=== PATIENT | male | born 1970 | race Caucasian/White ===

== ENCOUNTER 2023-03-15 22:46 | Emergency (ER) | payer SELFPAY ==
[2023-03-15 23:01] VITALS: BP 182/95; PULSE 82; RESP 20; TEMP 36.6; O2SAT 98; BMI 53.0
[2023-03-15 23:47] LABS: MANUAL DIFF FLAG NO
[2023-03-15 23:49] LABS: Basophils Percent Auto 0.5 % (0-2); Eosinophils Absolute Auto 0.3 X10*3/uL (0.0-0.4); Hematocrit 40.3 % (42.0-52.0); Imm Gran Abs Auto 0.02 X10*3/uL (0.00-0.03); Imm Gran Pct Auto 0.2 % (0.0-0.4); Lymphocytes Absolute Auto 2.4 X10*3/uL (1.2-4.9); Lymphocytes Percent Auto 27.2 % (20-40); Mean Corpuscular HGB Conc 32.3 g/dl (31.0-36.0); Mean Corpuscular Hemoglobin 27.5 pg (27.0-33.0); Mean Corpuscular Volume 85.2 fL (80.0-98.0); Mean Platelet Volume 9.9 fL (9.4-12.4); Monocytes Absolute Auto 0.5 X10*3/uL (0.1-1.2); Monocytes Percent Auto 5.8 % (2-11); Neutrophils Absolute Auto 5.6 x10*3/uL (2.0-8.3); Neutrophils Percent Auto 63.3 % (45-73); Platelet Count 260 X10*3/uL (160-400); Red Blood Count 4.73 X10*6/uL (4.60-5.80); Red Cell Distribution Width 14.3 % (11.0-16.0); White Blood Count 8.8 X10*3/uL (4.8-10.8)
--- NOTE | 2023-03-15 23:55 | MHC.EDTECH ---
Patient blood drawn including both sets of blood culture and lactic acid all sent to lab .
[2023-03-15 23:58] LABS: Lactic Acid 1.6 mmol/L (0.5-2.0)
[2023-03-16 00:02] LABS: Alanine Aminotransferase 17 U/L (0-40); Albumin Level 3.8 g/dL (3.5-5.0); Alkaline Phosphatase 64 U/L (39-117); Anion Gap 13 (12-20); Aspartate Amino Transferase 17 U/L (5-37); Bilirubin Total 0.6 mg/dL (0.0-1.0); Blood Urea Nitrogen 13 mg/dL (9-16); Calcium 9.2 mg/dL (8.4-10.2); Carbon Dioxide 27 mmol/L (22-29); Chloride 104 mmol/L (96-108); Creatinine Clr Calc Pharmacy 162.1; Estimated Glomerular Filt Rate > 60; Glucose Random 149 mg/dL (60-115); Potassium 3.9 mmol/L (3.3-5.1); Sodium 140 mmol/L (135-145); Total Protein 8.3 g/dL (6.5-8.0)
[2023-03-16 01:49] VITALS: BP 176/89; PULSE 111; RESP 20; TEMP 36.4
--- NOTE | 2023-03-16 02:07 | PC.NURSE ---
his rn assumed care of pt. pt reporting one year of cellulites to the right calf, pt reports he does not have PCP so he dresses ot himself. pt reports outbreak of psoriasis. pt right calf noted to be red, and warm to touch. pt had dressing, which this rn removed, yellow drainage noted to site. pt noted to have patchy rash to the right elbow, forearm and hand, left forearm, elbow and hand, lower back and abdomen. pt reports pain to the right calf which increases with ambulation.
--- NOTE | 2023-03-16 02:17 | ED.SKABFB ---
HPI - Skin/Abscess/Foreign Bdy General Chief complaint: Extremity Injury, Lower Stated complaint: Bilat hand celulitis Time Seen by Provider: 03/16/23 02:03 Source: patient Mode of arrival: ambulatory Limitations: no limitations History of Present Illness HPI narrative: 53yo male who just moved here has no PCP, no meds and on and off goes on cephalexin for reported recurrent RLE cellulitis and untreated psoriasis. He notes it is not painful but he has a chronic RLE rash that never heals. He states his psoriasis seems the worse it has ever been. MD complaint: rash Onset (ago): year(s) Location: generalized Severity: moderate Quality: pruritic Relieving factors: none Exacerbating factors: none Context: other (chronic) Associated symptoms: denies other symptoms Treatments prior to arrival: bandages Related Data Previous Rx's Medication Instructions Recorded silver sulfadiazine 1 % topical 1 appl topical DAILY #25 grams 03/16/23 cream (Silvadene) Allergies Allergy/AdvReac Type Severity Reaction Status Date / Time No Known Allergies Allergy Verified 03/15/23 23:06 Review of Systems Review of Systems: Constitutional : No Fever, No Chills ENT/Mouth : No sore throat, No Rhinorrhea Eyes: No Eye Pain, No Swelling, No Redness Cardiovascular : No Chest Pain, No SOB Respiratory : No Cough, No Sputum Gastrointestinal : No Nausea, No Vomiting, No Diarrhea, No abdominal Pain Genitourinary : No Dysuria, No Hematuria Musculoskeletal : No joint pain, No Myalgias, No Joint Swelling Skin : No Skin Lesions, positive skin rash Neuro : No Weakness, No Numbness, No Headache Psych : No Anxiety, No Depression Heme/Lymph: No Bruising, No Bleeding,No Lymphadenopathy Endocrine : No Polyuria, No Polydipsia All other systems reviewed and are negative [facility] Past Medical History Attestation statement: The following information was validated with the patient. Medical History Psoriasis Social History Social History Smoked in Last 30 Days: No Use of substances other than those prescribed or required for medical reasons: No Advance Directives: No Advance Directives Information Provided: Yes Physical Exam Vital Signs: Vital Signs: Last Vital Signs Temp 97.6 F 03/16/23 01:49 Pulse 111 H 03/16/23 01:49 Resp 20 03/16/23 01:49 BP 176/89 H 03/16/23 01:49 Pulse Ox 98 03/15/23 23:01 O2 Del Method Room Air 03/16/23 01:49 O2 Flow Rate 96 03/16/23 01:49 BMI result Body Mass Index 53.0 Appearance: Alert. Oriented X3. No acute distress. Eyes: Pupils equal, round and reactive to light. ENT: Pharynx normal. Neck: Normal inspection. Neck supple. CVS: Normal heart rate and rhythm. Pulses normal. Respiratory: No respiratory distress. Breath sounds normal. Abdomen: Soft and nontender. Skin: Skin warm and dry. Normal skin color. Normal skin turgor. Extremities: raised white scaly lesions on all extremities - RLE scaly red hyperpigmented area covering entire lower leg that is not hot to touch it is shiny and pink consistent with venous stasis dermatitis and crusted flakes Neuro: Oriented X 3. No motor deficit. No sensory deficit. Medical Decision Making Medical Decision Making [facility] Narrative: 53 yo male with psoriasis and no PCP will give information for [facility] and [facility] - he also has chronic RLE venous stasis dermatitis but it does not appear infected at all will use silvadene cream and again refer to [facility] it is not warm it is shiny and pink there is no signs of fluctuance at this time. will refer to the health center and he was given information to follow up with health insurance application here. Differential Diagnosis Differential Diagnoses: The differential diagnosis associated with the presentation includes psoriasis and venous stasis dermatitis Lab Data [facility] Lab Attestation statement: I reviewed the patient's lab results. 03/15/23 23:41 03/15/23 23:41 Labs: Lab Results 03/15/23 Range/Units 23:41 WBC 8.8 (4.8-10.8) X10*3/uL RBC 4.73 (4.60-5.80) X10*6/uL Hgb 13.0 L (14.0-18.0) g/dl Hct 40.3 L (42.0-52.0) % MCV 85.2 (80.0-98.0) fL MCH 27.5 (27.0-33.0) pg MCHC 32.3 (31.0-36.0) g/dl RDW 14.3 (11.0-16.0) % Plt Count 260 (160-400) X10*3/uL MPV 9.9 (9.4-12.4) fL Immature Gran % (Auto) 0.2 (0.0-0.4) % Neut % (Auto) 63.3 (45-73) % Lymph % (Auto) 27.2 (20-40) % Caroline % (Auto) 5.8 (2-11) % Eos % (Auto) 3.0 (0-4) % Baso % (Auto) 0.5 (0-2) % Lymph # (Auto) 2.4 (1.2-4.9) X10*3/uL Caroline # (Auto) 0.5 (0.1-1.2) X10*3/uL Eos # (Auto) 0.3 (0.0-0.4) X10*3/uL Baso # (Auto) 0.0 (0.0-0.2) X10*3/uL Abs Immat Gran (auto) 0.02 (0.00-0.03) X10*3/uL Absolute Neuts (auto) 5.6 (2.0-8.3) x10*3/uL Absolute Nucleated RBC 0.000 (0.0-0.012) X10*3/uL Nucleated RBC % (auto) 0.0 (0.0-0.2) /100WBC Sodium 140 (135-145) mmol/L Potassium 3.9 (3.3-5.1) mmol/L Chloride 104 (96-108) mmol/L Carbon Dioxide 27 (22-29) mmol/L Anion Gap 13 (12-20) BUN 13 (9-16) mg/dL Creatinine 0.87 (0.5-1.4) mg/dL Estim Creat Clear Calc 162.1 Estimated GFR > 60 Random Glucose 149 H (60-115) mg/dL Lactic Acid 1.6 (0.5-2.0) mmol/L Calcium 9.2 (8.4-10.2) mg/dL Total Bilirubin 0.6 (0.0-1.0) mg/dL AST 17 (5-37) U/L ALT 17 (0-40) U/L Alkaline Phosphatase 64 (39-117) U/L Total Protein 8.3 H (6.5-8.0) g/dL Albumin 3.8 (3.5-5.0) g/dL Prescription Management I considered prescription management with: Other Discharge Plan Discharge Clinical Impression: Psoriasis, Chronic venous stasis dermatitis Patient Disposition: Home, Self-Care Instructions: Psoriasis (ED), Venous Insufficiency (DC) Additional Instructions: please follow up with the [facility] card given to you you can also call the [facility] [place] for primary care as well wear a tight fitting soccer sock on your leg to help with compression this might help with the rash as well return for worsening, redness, swelling, fevers, or any other concerns. [place] [phone] Prescriptions: New silver sulfadiazine [Silvadene] 1 % cream 1 appl topical DAILY Qty: 25 1RF Rx Instructions: apply a 1.5 mm thickness
[2023-03-16] MEDS: Silver Sulfadiazine 1 % Cream 20 GM TUBE 1 APPL TOPICAL (02:33)
--- NOTE | 2023-03-16 02:33 | PC.NURSE ---
applied silver sulfadiazine cream to right lower leg, wrapped with guaze.
== END 2023-03-16 03:04 | disposition home or self-care (01) ==
PROVIDERS: Emergency Provider Emergency Medicine
DX: L40.9 Psoriasis, unspecified (principal); I87.2 Venous insufficiency (chronic) (peripheral); Z79.899 Other long term (current) drug therapy
CPT/HCPCS: 36415; 80053; 83605; 85025; 87040; 99283; 99284

== ENCOUNTER 2023-04-15 17:04 | Emergency (ER) | payer SELFPAY ==
[2023-04-15 17:24] VITALS: BP 185/100; PULSE 77; RESP 20; TEMP 36.9; O2SAT 97; BMI 50.9
--- NOTE | 2023-04-15 17:24 | ED.GENADULT ---
HPI - General Adult General Chief complaint: Skin/Abscess/Foreign Body Stated complaint: staff infection? Time Seen by Provider: 04/15/23 23:34 History of Present Illness HPI narrative: Patient is a 53-year-old male who says that he was diagnosed with plaque psoriasis many years ago. Last year he has had a lot of problems with the skin of his right lower leg. He recently moved to this area from [place], [place]. He says that last year, in 2022, he was seen at hospitals near [place], both the [facility] and a hospital in [place], [place], for his right lower leg problems. He says on 1 occasion he was diagnosed with cellulitis. He says that on other visits he was told that he had venous stasis dermatitis. He says that he was once hospitalized for 3 days for antibiotics. He says that antibiotics sometimes seemed to help. He came to the emergency room here last month after moving to this area. He was prescribed Silvadene cream and referred to the [facility]. He has not managed to get follow-up yet. He does not have insurance currently. He says he is working and does not have insurance through his job at the moment. He comes to the emergency room because he feels that his leg has gotten worse recently. He feels there is a lot of weeping. He says it is uncomfortable and painful. He says it makes him anxious because this is such a persistent problem. No fevers. He says he also has skin lesions on his arms and his torso. Related Data Previous Rx's Medication Instructions Recorded silver sulfadiazine 1 % topical 1 appl topical DAILY #25 grams 03/16/23 cream (Silvadene) cefadroxil 1 gram tablet 1,000 mg PO BID #20 tabs 04/16/23 doxycycline monohydrate 100 mg 100 mg PO BID #20 caps 04/16/23 capsule silver sulfadiazine 1 % topical 1 appl topical BID #400 grams 04/16/23 cream (Silvadene) Allergies Allergy/AdvReac Type Severity Reaction Status Date / Time No Known Allergies Allergy Verified 04/15/23 17:20 Review of Systems Review of Systems: Yes all other systems are reviewed and are negative PMFSH Past Medical History Onset Date is defined in the Problem List Problems that require an onset date and time if occurred within 24 hrs of arrival to the ED Aortic Dissection and Rupture; Neurologic impairment; Cardiopulmonary Arrest; Endotracheal Intubation; Insertion or Replacement of Mechanical Circulatory Assist Device Medical History Psoriasis Social History Social History Alcohol intake: former Use of substances other than those prescribed or required for medical reasons: No Advance Directives: No Advance Directives Information Provided: Yes Physical Exam ED Vital Signs: Vital Signs - 24 hr 04/15/23 17:24 04/15/23 20:40 04/15/23 23:19 Temperature 98.4 F 97.9 F 98.1 F Pulse Rate 77 77 66 Respiratory Rate 20 18 16 Blood Pressure 185/100 H 174/95 H 155/82 H Pulse Oximetry 97 100 97 Oxygen Delivery Method Room Air Room Air BMI result Body Mass Index 50.9 Const Other: The patient is a large man (BMI 50) who was awake and alert and does not appear obviously acutely ill. HENMT Other: The face is symmetrical. ?Mucous membranes moist. Eyes Other: Pupils are round equal, conjunctivae are clear, extraocular movements intact Resp Effort & Inspection: normal respiratory effort Auscultation: clear to auscultation bilaterally Cardio Rate: regular rate Rhythm: regular rhythm Heart sounds: S1 normal heart sound present and S2 normal heart sound present GI Other: Abdomen is soft and nontender Skin Other: The patient has multiple areas of abnormal skin findings. The most impressive is at the right lower leg where there is a very large patch of erythema and associated dry skin with skin cracking and desquamation. This large patch of erythema is not markedly warm. It is tender. Elsewhere on the patient's body, particularly on his arms and abdominal skin he has multiple small erythematous blanching lesions. Neuro Other: The patient is awake and alert. Speech is clear. Face is symmetrical. Moves his extremities symmetrically. Seems grossly neurologically intact. Extrem Other: There is a large area of erythema to the right lower leg but no particular edema to the foot. Good pulses in both feet. Course Course Course Narrative: RME- 53-year-old male presents for evaluation of a rash to his right lower extremity. Thinks he may have a staph infection. He also complains of a rash to his abdomen. This is a different rash to his leg. He has a history of psoriasis. He has an erythematous maculopapular rash to the trunk. Given the significant erythema to the right lower extremity blood cultures and lactic acid ordered Medications Administered Discontinued Medications Generic Name Dose Route Start Last Admin Trade Name Nandini PRN Reason Stop Dose Admin Acetaminophen 650 mg 04/15/23 20:46 04/15/23 20:48 Acetaminophen 325 Mg Tablet PO 04/15/23 20:47 650 mg ONCE ONE Administration Cephalexin HCl 500 mg 04/16/23 00:01 04/16/23 00:07 Cephalexin 500 Mg Capsule PO 04/16/23 00:02 500 mg ONCE ONE Administration Doxycycline Monohydrate 100 mg 04/16/23 00:01 04/16/23 00:07 Doxycycline Monohydrate 100 Mg Capsule PO 04/16/23 00:02 100 mg ONCE ONE Administration Silver Sulfadiazine 1 appl 04/16/23 00:00 04/16/23 00:07 Silver Sulfadiazine 1 % Cream 20 Gm Tube TOPICAL 04/16/23 00:01 1 appl ONCE ONE Administration Medical Decision Making Medical Decision Making [facility] Narrative: The patient is a 53-year-old male with an impressively red right lower leg. He reports a history of psoriasis and has multiple skin lesions on his abdomen and his arms which I think represents psoriatic lesions. With regard to the large area on the right lower leg it is not clear whether this represents psoriasis, venous stasis dermatitis, or a combination of the tube. Additionally it would be difficult to entirely exclude some infectious component although the erythema does not look particularly angry or toxic. I think for the most part the patient has a chronic problem which will need to be addressed by a primary care doctor and possibly specialty consultants. Unfortunately the patient does not have a primary care doctor. He is new in this area and says he does not have insurance. The patient is encouraged to apply for [employer]. He is again advised to follow up with the [facility]. He will be prescribed Silvadene cream to use topically as well as cephalexin and doxycycline as oral antibiotics as he says that he has had improvement on antibiotics in the past. Lab Data 04/15/23 17:41 04/15/23 17:41 Labs: Lab Results 04/15/23 04/15/23 Range/Units 17:40 17:41 WBC 8.3 (4.8-10.8) X10*3/uL RBC 4.98 (4.60-5.80) X10*6/uL Hgb 13.6 L (14.0-18.0) g/dl Hct 41.9 L (42.0-52.0) % MCV 84.1 (80.0-98.0) fL MCH 27.3 (27.0-33.0) pg MCHC 32.5 (31.0-36.0) g/dl RDW 14.0 (11.0-16.0) % Plt Count 295 (160-400) X10*3/uL MPV 9.5 (9.4-12.4) fL Immature Gran % (Auto) 0.2 (0.0-0.4) % Neut % (Auto) 59.5 (45-73) % Lymph % (Auto) 30.2 (20-40) % Tillman % (Auto) 6.5 (2-11) % Eos % (Auto) 3.1 (0-4) % Baso % (Auto) 0.5 (0-2) % Lymph # (Auto) 2.5 (1.2-4.9) X10*3/uL Tillman # (Auto) 0.5 (0.1-1.2) X10*3/uL Eos # (Auto) 0.3 (0.0-0.4) X10*3/uL Baso # (Auto) 0.0 (0.0-0.2) X10*3/uL Abs Immat Gran (auto) 0.02 (0.00-0.03) X10*3/uL Absolute Neuts (auto) 4.9 (2.0-8.3) x10*3/uL Absolute Nucleated RBC 0.000 (0.0-0.012) X10*3/uL Nucleated RBC % (auto) 0.0 (0.0-0.2) /100WBC Sodium 138 (135-145) mmol/L Potassium 3.8 (3.3-5.1) mmol/L Chloride 102 (96-108) mmol/L Carbon Dioxide 29 (22-29) mmol/L Anion Gap 11 L (12-20) BUN 14 (9-16) mg/dL Creatinine 0.87 (0.5-1.4) mg/dL Estim Creat Clear Calc 158.2 Estimated GFR > 60 Random Glucose 86 (60-115) mg/dL Lactic Acid 1.0 (0.5-2.0) mmol/L Calcium 9.5 (8.4-10.2) mg/dL Total Bilirubin 0.4 (0.0-1.0) mg/dL AST 19 (5-37) U/L ALT 16 (0-40) U/L Alkaline Phosphatase 71 (39-117) U/L Total Protein 9.0 H (6.5-8.0) g/dL Albumin 4.1 (3.5-5.0) g/dL Lipase 23 (8-78) U/L Discharge Plan Discharge Clinical Impression: Venous stasis dermatitis of lower extremity, Psoriasis Patient Disposition: Home, Self-Care Additional Instructions: I have sent a prescription for antibiotics and for additional Silvadene cream which you may use to see if this helps. The most important thing that you can do is to get a primary care doctor who can help you with referrals to specialists to manage this problem. Please contact the [facility] and see if they can help give you advice about applying for [facility] and getting seen at their clinic. Additionally you should be seen at the [facility] although you may need a referral from a primary care physician first. As much as you can rest and keep the foot elevated. Please work on getting insurance and a primary care doctor. Return to the emergency room if significantly worse. Prescriptions: New silver sulfadiazine [Silvadene] 1 % cream 1 appl topical BID Qty: 400 0RF Rx Instructions: apply a 1.5 mm thickness cefadroxil 1 gram tablet 1,000 mg PO BID Qty: 20 0RF doxycycline monohydrate 100 mg capsule 100 mg PO BID Qty: 20 0RF No Action silver sulfadiazine [Silvadene] 1 % cream 1 appl topical DAILY Qty: 25 1RF Rx Instructions: apply a 1.5 mm thickness Referrals: [facility] [Provider Group] (Psoriasis, venous stasis dermatitis) [facility] [Outside] (Psoriasis, stasis dermatitis) Stand Alone Forms: Work/School Release Interventions: ED Discharge Assessment Last Done: 04/16/23 00:32 Discharge Date/Time: 04/16/23 00:33
[2023-04-15 17:46] LABS: MANUAL DIFF FLAG NO
[2023-04-15 17:50] LABS: Basophils Percent Auto 0.5 % (0-2); Eosinophils Absolute Auto 0.3 X10*3/uL (0.0-0.4); Eosinophils Percent Auto 3.1 % (0-4); Hematocrit 41.9 % (42.0-52.0); Hemoglobin 13.6 g/dl (14.0-18.0); Imm Gran Abs Auto 0.02 X10*3/uL (0.00-0.03); Imm Gran Pct Auto 0.2 % (0.0-0.4); Lymphocytes Absolute Auto 2.5 X10*3/uL (1.2-4.9); Lymphocytes Percent Auto 30.2 % (20-40); Mean Corpuscular HGB Conc 32.5 g/dl (31.0-36.0); Mean Corpuscular Hemoglobin 27.3 pg (27.0-33.0); Mean Corpuscular Volume 84.1 fL (80.0-98.0); Mean Platelet Volume 9.5 fL (9.4-12.4); Monocytes Absolute Auto 0.5 X10*3/uL (0.1-1.2); Monocytes Percent Auto 6.5 % (2-11); Neutrophils Absolute Auto 4.9 x10*3/uL (2.0-8.3); Neutrophils Percent Auto 59.5 % (45-73); Platelet Count 295 X10*3/uL (160-400); Red Blood Count 4.98 X10*6/uL (4.60-5.80); White Blood Count 8.3 X10*3/uL (4.8-10.8)
[2023-04-15 18:11] LABS: Alanine Aminotransferase 16 U/L (0-40); Albumin Level 4.1 g/dL (3.5-5.0); Alkaline Phosphatase 71 U/L (39-117); Anion Gap 11 (12-20); Aspartate Amino Transferase 19 U/L (5-37); Bilirubin Total 0.4 mg/dL (0.0-1.0); Blood Urea Nitrogen 14 mg/dL (9-16); Calcium 9.5 mg/dL (8.4-10.2); Carbon Dioxide 29 mmol/L (22-29); Chloride 102 mmol/L (96-108); Creatinine Clr Calc Pharmacy 158.2; Estimated Glomerular Filt Rate > 60; Glucose Random 86 mg/dL (60-115); Lipase 23 U/L (8-78); Potassium 3.8 mmol/L (3.3-5.1); Sodium 138 mmol/L (135-145)
[2023-04-15 20:40] VITALS: BP 174/95; PULSE 77; RESP 18; TEMP 36.6; O2SAT 100
[2023-04-15] MEDS: Acetaminophen 325 MG TABLET 650 MG PO (20:48)
[2023-04-15 23:19] VITALS: BP 155/82; PULSE 66; RESP 16; TEMP 36.7; O2SAT 97
[2023-04-16] MEDS: Silver Sulfadiazine 1 % Cream 20 GM TUBE 1 APPL TOPICAL (00:07)
[2023-04-16] MEDS: Doxycycline Monohydrate 100 MG CAPSULE PO (00:07)
[2023-04-16] MEDS: cephALEXin 500 MG CAPSULE PO (00:07)
== END 2023-04-16 00:33 | disposition home or self-care (01) ==
PROVIDERS: Physician Assistant; Emergency Provider Emergency Medicine
DX: I87.2 Venous insufficiency (chronic) (peripheral) (principal); L40.9 Psoriasis, unspecified; Z79.899 Other long term (current) drug therapy
CPT/HCPCS: 36415; 80053; 83605; 83690; 85025; 87040; 99283; 99284

== ENCOUNTER 2023-06-06 16:23 | Inpatient (IN) | payer MEDICAID, SELFPAY ==
[2023-06-06] VITALS (9 sets, daily range): BP systolic 138–161; BP diastolic 66–73; PULSE 79–100; RESP 11–22; TEMP 36.6; O2SAT 80–97; BMI 50.9
--- NOTE | ~2023-06-06 | CT_ITS ---
EXAMINATION: CT ANGIOGRAM OF THE CHEST WITH AND WITHOUT CONTRAST (CT PULMONARY ANGIOGRAM FOR PE) CLINICAL INFORMATION: Reason for Exam hypoxia, elevated d dimer COMPARISON: None available. TECHNIQUE: Prior to contrast administration, noncontrast localization images were obtained. Subsequently, multidetector volumetric imaging was performed from the thoracic inlet to below the diaphragms following the administration of 80 mL Omnipaque 350 intravenous contrast. No contrast reaction reported Sagittal, coronal, and MIP oblique sagittal reformatted images were obtained on the CT workstation, uploaded to PACS, and reviewed. This CT examination was performed using dose optimization techniques as appropriate, variously including the following: *Automated exposure control *Adjustment of mA and/or kV according to patient size (this includes techniques or standardized protocols for targeted exams where dose is matched to indication/reason for exam; i.e. extremities or head) *Use of iterative reconstruction technique Total exam dose-length product 625 mGy-cm FINDINGS: QUALITY OF STUDY/CONTRAST BOLUS: Satisfactory. PULMONARY ARTERIES: No pulmonary emboli. THORACIC AORTA: No aneurysm. LUNG: No focal consolidation, nodules or masses. Scattered minor discoid atelectasis versus scarring bilaterally. PLEURA: No pleural effusion or pneumothorax. MEDIASTINUM: Normal heart size. No pericardial effusion. No hilar or mediastinal lymphadenopathy. No evidence of septal bowing or right heart strain. CORONARY ARTERY CALCIFICATION: None visualized on this study. CHEST WALL/AXILLA: No axillary or internal mammary lymphadenopathy. OSSEOUS STRUCTURES: No acute or suspicious osseous abnormality. UPPER ABDOMEN: Unremarkable. No reflux of contrast into the hepatic veins to suggest elevated right heart pressures. CT/CT angio chest PE protocol IMPRESSION: No evidence for acute or chronic pulmonary embolism. VTE: negative.
--- NOTE | ~2023-06-06 | XR_ITS ---
EXAMINATION: XR CHEST CLINICAL INFORMATION: Shortness of breath COMPARISON: None available. TECHNIQUE: 2 views of the chest were obtained. FINDINGS: Heart size is mildly enlarged. Mild to moderate central pulmonary vascular congestion without overt pulmonary edema. No pleural effusion. No pneumothorax. XR/XR chest 2V IMPRESSION: Mild to moderate central pulmonary vascular congestion without overt pulmonary edema.
--- NOTE | 2023-06-06 17:02 | ECG_ITS ---
Test Reason : SOB Blood Pressure : / mmHG Vent. Rate : 091 BPM Atrial Rate : 091 BPM P-R Int : 158 ms QRS Dur : 094 ms QT Int : 386 ms P-R-T Axes : 053 063 030 degrees QTc Int : 474 ms Normal sinus rhythm Normal ECG No previous ECGs available Referred By: Generic ED Physician Electronically Signed By:FABIO LEONARD MD
--- NOTE | 2023-06-06 17:29 | PC.NURSE ---
ASSUMED CARE OF PT AT 1730. PT SATTING 86% R/A, 93% ON 2L N/C.
--- NOTE | 2023-06-06 17:34 | ED.GENADULT ---
HPI - General Adult General Chief complaint: Upper Respiratory Symptoms Stated complaint: SOB Time Seen by Provider: 06/06/23 17:20 Source: patient Mode of arrival: ambulatory Limitations: no limitations History of Present Illness HPI narrative: Patient is a 53-year-old male with history of psoriasis, asthma presenting to the emergency department with one week of non-productive cough and dyspnea on exertion. He reports multiple co-workers have been sick recently. States he has used his albuterol inhaler and his grandaughter's nebulizer with temporary relief. Also complains of ongoing erythema and weeping to right leg for which he has been diagnosed in the past with venous stasis dermatitis and cellulitis. He denies any recent changes to his leg but reports ongoing weeping. Denies fevers. States he does not currently have health insurance or a PCP. He denies chest pain or palpitations. Denies abdominal pain, nausea, vomiting, diarrhea. MD complaint: Shortness of breath, cough Onset (ago): week(s) Relieving factors: rest Exacerbating factors: movement Associated symptoms: denies other symptoms Treatments prior to arrival: other Related Data Previous Rx's Medication Instructions Recorded silver sulfadiazine 1 % topical 1 appl topical DAILY #25 grams 03/16/23 cream (Silvadene) cefadroxil 1 gram tablet 1,000 mg PO BID #20 tabs 04/16/23 doxycycline monohydrate 100 mg 100 mg PO BID #20 caps 04/16/23 capsule silver sulfadiazine 1 % topical 1 appl topical BID #400 grams 04/16/23 cream (Silvadene) Allergies Allergy/AdvReac Type Severity Reaction Status Date / Time No Known Allergies Allergy Verified 06/06/23 16:57 Review of Systems Review of Systems: As per HPI. Yes all other systems are reviewed and are negative [facility] Past Medical History Medical History (Updated 06/07/23 @ 00:45 by Carmen Ames NP) Morbid obesity Psoriasis Social History Social History Alcohol intake: former Advance Directives: No Advance Directives Information Provided: No Physical Exam ED Vital Signs: Vital Signs - 24 hr 06/06/23 16:57 06/06/23 17:35 06/06/23 18:09 Temperature 98 F Pulse Rate 88 84 Pulse Rate [Monitor] Respiratory Rate 22 H 11 L Blood Pressure 161/71 H Pulse Oximetry 81 L 89 L Oxygen Delivery Method Room Air Room Air Oxygen Flow Rate 06/06/23 19:30 06/06/23 20:00 06/06/23 20:21 Temperature Pulse Rate 82 Pulse Rate [Monitor] 100 Respiratory Rate 16 Blood Pressure 138/70 Pulse Oximetry 97 80 L Oxygen Delivery Method Nasal Cannula Oxygen Flow Rate 2 06/06/23 20:42 06/06/23 22:09 06/06/23 23:00 Temperature 97.8 F Pulse Rate 82 79 81 Pulse Rate [Monitor] Respiratory Rate 20 16 16 Blood Pressure 143/73 H 143/66 H Pulse Oximetry 94 93 Oxygen Delivery Method Nasal Cannula Nasal Cannula Oxygen Flow Rate 2 2 BMI result Body Mass Index 50.9 Vital signs have been reviewed and appear to be correct. Blood pressure elevated. Heart rate normal. Respiratory rate normal. Temperature normal. Oxygen saturation low on room air, oxygen applied by nursing. Const General: cooperative, no acute distress, alert and awake Nutritional Appearance: obese Orientation/consciousness: patient oriented x3 Limitations: no limitations HENMT Head: Yes normal to inspection, Yes normocephalic and Yes atraumatic Ears: hearing grossly normal bilaterally, TM's normal bilaterally and EAC's normal General nose exam: Normal external nose present and Normal nasal mucous membranes and turbinates present Mouth: Normal oral and palatal mucosa present and moist mucous membranes Throat: Yes posterior oropharynx normal, Yes uvula midline and No uvular edema Eyes Pupils: Equal, round and reactive pupils present EOM: EOMs intact bilaterally Neck Lymphatic: no lymphadenopathy noted Resp Effort & Inspection: normal respiratory effort, able to speak in complete sentences, no tripod positioning and no use of accessory muscles Auscultation: wheezes expiratory wheezes and throughout and diminished lung sounds diffuse Cardio Rate: regular rate Rhythm: regular rhythm Heart sounds: S1 normal heart sound present and S2 normal heart sound present Peripheral pulses: Peripheral pulses 2+ throughout GI Inspection: Yes normal to inspection Palpation (GI): Soft to palpation and nontender General: Yes no CVA tenderness Back/Spine/Pelvis Back: no CVA tenderness Skin Other: diffuse blanchable erythematous plaques to extremities, trunk Neuro General: patient oriented x3 Cranial nerves: Yes Equal, round and reactive pupils present Medications Administered Discontinued Medications Generic Name Dose Route Start Last Admin Trade Name Freq PRN Reason Stop Dose Admin Albuterol Sulfate 2.5 mg/ 5 mg 06/06/23 18:04 06/06/23 18:08 Albuterol Sulfate 2.5 mg INHALE 06/06/23 18:05 5 mg ONCE ONE Administration Albuterol Sulfate 2.5 mg/ 5 mg 06/06/23 22:54 06/06/23 22:58 Albuterol Sulfate 2.5 mg INHALE 06/06/23 22:55 5 mg ONCE ONE Administration Iohexol 65 ml 06/06/23 20:58 06/06/23 20:59 Iohexol 350 Mg/Ml 100 Ml Infus..Btl IV 06/06/23 20:59 65 ml ONCE ONE Administration Lorazepam 1 mg 06/06/23 20:20 06/06/23 20:29 Lorazepam 1 Mg Tablet PO 06/06/23 20:21 1 mg ONCE ONE Administration Methylprednisolone Sodium Succinate 125 mg 06/06/23 20:03 06/06/23 20:29 Methylprednisolone Sod Succ 125 Mg/2 Ml Vial IVPUSH 06/06/23 20:04 125 mg ONCE ONE Administration Medical Decision Making Medical Decision Making MDM Narrative: Patient is a 53-year-old male with history of psoriasis, asthma presenting to the emergency department with one week of non-productive cough and dyspnea on exertion. On exam patient is awake, A+Ox3, hypoxic on room air, improves with oxygen via NC, VS WNL, afebrile, normal neurological exam without focal deficits, physical exam findings as above. Given reported symptoms and physical exam findings, initial differential includes viral illness, covid, flu, Rsv, asthma exacerbation, pneumonia, PE. Labs notable for no leukocytosis, mild anemia, elevated D-dimer, normal BNP, troponin of 3.8, repeat negative. Viral swabs negative. X-ray notable for no pneumonia or CHF. CT notable for no evidence of PE. My interpretation is in agreement with the radiologist's interpretation. Patient continues to become hypoxic to 78-80% on room air with simply getting out of bed or ambulating to bathroom. Admission for hypoxia accepted to Medicine by Dr. Bianchi. Differential Diagnosis Differential Diagnoses: The differential diagnosis associated with the presentation includes As per MDM. Admission/Observation Consideration of admission/observation: Escalation of care including admission/observation considered Consult Healthcare Provider Management of the patient was discussed with: Hospitalist Lab Data [facility] Lab Attestation statement: I reviewed the patient's lab results. As per MDM. 06/06/23 18:13 06/06/23 18:13 Labs: Lab Results 06/06/23 06/06/23 06/06/23 Range/Units 17:40 18:13 20:37 WBC 8.1 (4.8-10.8) X10*3/uL RBC 4.18 L (4.60-5.80) X10*6/uL Hgb 11.6 L (14.0-18.0) g/dl Hct 36.1 L (42.0-52.0) % MCV 86.4 (80.0-98.0) fL MCH 27.8 (27.0-33.0) pg MCHC 32.1 (31.0-36.0) g/dl RDW 14.9 (11.0-16.0) % Plt Count 271 (160-400) X10*3/uL MPV 9.3 L (9.4-12.4) fL Immature Gran % (Auto) 0.4 (0.0-0.4) % Neut % (Auto) 63.4 (45-73) % Lymph % (Auto) 27.0 (20-40) % [place] % (Auto) 7.0 (2-11) % Eos % (Auto) 1.8 (0-4) % Baso % (Auto) 0.4 (0-2) % Lymph # (Auto) 2.2 (1.2-4.9) X10*3/uL [place] # (Auto) 0.6 (0.1-1.2) X10*3/uL Eos # (Auto) 0.2 (0.0-0.4) X10*3/uL Baso # (Auto) 0.0 (0.0-0.2) X10*3/uL Abs Immat Gran (auto) 0.03 (0.00-0.03) X10*3/uL Absolute Neuts (auto) 5.2 (2.0-8.3) x10*3/uL Absolute Nucleated RBC 0.000 (0.0-0.012) X10*3/uL Nucleated RBC % (auto) 0.0 (0.0-0.2) /100WBC PT 14.1 H (11.1-13.3) SEC INR 1.2 H (0.9-1.1) D-Dimer High Sensitivty 433 NG/ML Sodium 140 (135-145) mmol/L Potassium 3.6 (3.3-5.1) mmol/L Chloride 99 (96-108) mmol/L Carbon Dioxide 32 H (22-29) mmol/L Anion Gap 13 (12-20) BUN 12 (9-16) mg/dL Creatinine 0.82 (0.5-1.4) mg/dL Estim Creat Clear Calc 167.9 Estimated GFR > 60 Random Glucose 102 (60-115) mg/dL Calcium 8.4 D (8.4-10.2) mg/dL Troponin I High Sens 3.8 < 2.7 (<3.5-35.0) ng/L B-Natriuretic Peptide 34 (<100) pg/mL Influenza Type A (PCR) NEGATIVE (Negative) Influenza Type B (PCR) NEGATIVE (Negative) RSV RNA Qual (PCR) NEGATIVE (Negative) SARS-CoV-2 RNA (RT-PCR) NEGATIVE (Negative) Independent Interpretation I performed an independent interpretation of an: EKG (normal sinus rhythm, rate 91bpm, normal IN interval and QTc), Plain X-Ray and CT Scan Interpretation: No Evidence of pneumonia or CHF No PE on CTA chest Radiology Impression Discussion of test interpretation with radiology: I have reviewed the radiologist's reading. Radiologist Impression: CT/CT angio chest PE protocol IMPRESSION: No evidence for acute or chronic pulmonary embolism. VTE: negative. XR/XR chest 2V IMPRESSION: Mild to moderate central pulmonary vascular congestion without overt pulmonary edema. External Record Review External record reviewed: Inpatient record, Office record and Outpatient record Prescription Management I considered prescription management with: Other Discharge Plan Discharge Patient Disposition: Admitted As Inpatient Prescriptions: No Action silver sulfadiazine [Silvadene] 1 % cream 1 appl topical DAILY Qty: 25 1RF Rx Instructions: apply a 1.5 mm thickness silver sulfadiazine [Silvadene] 1 % cream 1 appl topical BID Qty: 400 0RF Rx Instructions: apply a 1.5 mm thickness cefadroxil 1 gram tablet 1,000 mg PO BID Qty: 20 0RF doxycycline monohydrate 100 mg capsule 100 mg PO BID Qty: 20 0RF
[2023-06-06] MEDS: Albuterol Sulfate 2.5 MG, Albuterol Sulfate (0.083%) 2.5 MG 5 MG INHALE ×2 (18:08→22:58)
[2023-06-06 18:18] LABS: MANUAL DIFF FLAG NO
[2023-06-06 18:25] LABS: INTERNATIONAL NORM RATIO 1.2 (0.9-1.1); Prothrombin Time 14.1 SEC (11.1-13.3)
[2023-06-06 18:29] LABS: Basophils Percent Auto 0.4 % (0-2); Eosinophils Absolute Auto 0.2 X10*3/uL (0.0-0.4); Eosinophils Percent Auto 1.8 % (0-4); Hematocrit 36.1 % (42.0-52.0); Hemoglobin 11.6 g/dl (14.0-18.0); Imm Gran Abs Auto 0.03 X10*3/uL (0.00-0.03); Imm Gran Pct Auto 0.4 % (0.0-0.4); Lymphocytes Absolute Auto 2.2 X10*3/uL (1.2-4.9); Mean Corpuscular HGB Conc 32.1 g/dl (31.0-36.0); Mean Corpuscular Hemoglobin 27.8 pg (27.0-33.0); Mean Corpuscular Volume 86.4 fL (80.0-98.0); Mean Platelet Volume 9.3 fL (9.4-12.4); Monocytes Absolute Auto 0.6 X10*3/uL (0.1-1.2); Neutrophils Absolute Auto 5.2 x10*3/uL (2.0-8.3); Neutrophils Percent Auto 63.4 % (45-73); Platelet Count 271 X10*3/uL (160-400); Red Blood Count 4.18 X10*6/uL (4.60-5.80); Red Cell Distribution Width 14.9 % (11.0-16.0); White Blood Count 8.1 X10*3/uL (4.8-10.8)
[2023-06-06 18:46] LABS: Anion Gap 13 (12-20); Blood Urea Nitrogen 12 mg/dL (9-16); Calcium 8.4 mg/dL (8.4-10.2); Carbon Dioxide 32 mmol/L (22-29); Chloride 99 mmol/L (96-108); Creatinine Clr Calc Pharmacy 167.9; Estimated Glomerular Filt Rate > 60; Glucose Random 102 mg/dL (60-115); Potassium 3.6 mmol/L (3.3-5.1); Sodium 140 mmol/L (135-145)
[2023-06-06 18:54] LABS: Troponin-I High Sensitivity 3.8 ng/L (<3.5-35.0)
[2023-06-06 18:56] LABS: B Type Natriuretic Peptide 34 pg/mL (<100)
[2023-06-06 19:17] LABS: Influenza A PCR NEGATIVE (Negative); Influenza B PCR NEGATIVE (Negative); Resp Syncy Virus RNA Qual PCR NEGATIVE (Negative); SARS COV2 PCR INHOUSE NEGATIVE (Negative)
--- NOTE | 2023-06-06 20:00 | PC.NURSE ---
pt got oob and put pants on o2 dropped to 80% on RA. pt assisted back into stretcher sitting up placed on 2L NC now 94% sats. Carmen COTE aware. pt denies cp/sob however reports i feel like i just exercised.
[2023-06-06 20:13] LABS: D Dimer High Sensitivity 433 NG/ML
--- NOTE | 2023-06-06 20:24 | PC.NURSE ---
pt reports severe anxiety with ct scan. yusuf willard aware.
[2023-06-06] MEDS: LORazepam 1 MG TABLET PO (20:29)
[2023-06-06] MEDS: methylPREDNISolone Sod Succ 125 MG/2 ML VIAL IVPUSH (20:29)
[2023-06-06] MEDS: iohexoL 350 MG/ML 100 ML INFUS..BTL 65 ML IV (20:59)
[2023-06-06 21:12] LABS: Troponin-I High Sensitivity < 2.7 ng/L (<3.5-35.0)
--- NOTE | 2023-06-06 22:56 | PC.NURSE ---
pt ambulated to bathroom with no distress however upon return o2 77% on RA. sats 92% on 2L NC. expiratory wheezing on ausc; respiratory and yusuf crnp notified for breathing tx. respiratory at bedside now. Dr. Arias Caro at bedside for admission.
--- NOTE | 2023-06-06 23:23 | P.HPHOSP_ITS ---
History of Present Illness Date of Service: 06/06/23 Attending physician on admission: Annamarie Caro Chief Complaint: Shortness of breaths Joseph Bailey is a 53 years old man with past medical history significant for obesity and asthma presents to the emergency department complaining of shortness of over the last week associated with dry cough. He denies fevers and chills. He mentioned there are many people sick at work. He denied any headache, sore throat, palpitations, nausea or vomiting. He mentioned having abdominal pain which he attributes to excessive coughing. Patient used his niece inhaler which helped a bit with his shortness on breath. Not using daily inhalers. He denied tobacco or marijuana smoking, alcohol abuse or illicit drug use. He mentioned that he was tested for sleep apnea once this is inconclusive. It was supposed to be done again but financial issues this has not been done. Patient does not take any medication at home. In the ED he was found to have stable vital signs, however his oxygen saturation dropped to 80%. He is currently requiring 2 liters/minute supplemental oxygen. Blood workup showed no leukocytosis. Hemoglobin is 11.6 (it was 13.6 on 04/15/23). CO2 is elevated 32. There are no significant electrolyte imbalances. Renal function is normal. Troponin is negative x2. Chest CTA showed no evidence of pulmonary embolism; they are no consolidation, pleural effusion or masses. There are scattered minor discoid atelectasis versus scarring bilaterally.. ED tx: DuoNeb 2.5 mg x2, prednisone 50 mg p.o., methylprednisolone 125 mg IV, Ativan 1 mg p.o. Review of Systems 2 Review of Systems: All 12 systems were reviewed and normal except as noted in HPI. [facility] Medical History (Updated 06/06/23 @ 23:48 by Annamarie Caro MD) Morbid obesity Psoriasis Social History Alcohol intake: former Advance Directives: No Advance Directives Information Provided: No Meds Allergies Allergy/AdvReac Type Severity Reaction Status Date / Time No Known Allergies Allergy Verified 06/06/23 16:57 Active Medications: Current Medications Acetaminophen (Acetaminophen 325 Mg Tablet) 650 mg PO Q6H PRN PRN Reason: Pain, Mild (Pain Scale 1-3) Albuterol/Ipratropium (Albuterol/Iprat 2.5/0.5mg 3 Ml Ampul.Neb) 3 ml INHALE RQ4H WHILE AWAKE [facility] Heparin Sodium (Porcine) (Heparin Sodium,Porcine 5,000 Unit/Ml Vial) 5,000 unit SUBCUT Q12H [facility] Azithromycin 500 mg/ Sodium (Chloride) 250 mls @ 125 mls/hr IV Q24H [facility] Methylprednisolone Sodium Succinate (Methylprednisolone Sod Succ 40 Mg/Ml Vial) 40 mg IVPUSH Q12H [facility] Sodium Chloride (0.9 % Sodium Chloride Flush 3 Ml Syringe) 3 ml IVFLUSH QSHIFT [facility] Physical Exam 2 Vital Signs and Narrative: Vital Signs: Last Vital Signs Temp 97.8 F 06/06/23 20:42 Pulse 81 06/06/23 23:00 Resp 16 06/06/23 23:00 BP 143/66 H 06/06/23 22:09 Pulse Ox 93 06/06/23 22:09 O2 Del Method Nasal Cannula 06/06/23 22:09 O2 Flow Rate 2 06/06/23 22:09 BMI result Body Mass Index 50.9 Constitutional - Awake and Alert, No apparent distress. Nasal cannula in place. Obese. Diff. Pleasant. HEENT - atraumatic. Normocephalic. Heart - regular rate and rhythm. No murmur. Lungs - Normal lung expansion, Normal respiratory effort, No respiratory distress, tachypnea. Bilateral expiratory wheezing. Abdomen - NT / ND; +BS; No rebound or guarding Extremities - no calf tenderness bilaterally, no swelling Musculoskeletal - Normal inspection, normal ROM Skin - Warm/Dry Neurological - Alert & oriented x3. No gross focal weakness. Normal speech. Psychological - Appropriate affect Results Labs 06/06/23 18:13 06/06/23 18:13 Labs: Laboratory Results - last 24 hr 06/06/23 06/06/23 06/06/23 17:40 18:13 20:37 MCV 86.4 MCH 27.8 MCHC 32.1 RDW 14.9 Plt Count 271 MPV 9.3 L Immature Gran % (Auto) 0.4 Neut % (Auto) 63.4 Lymph % (Auto) 27.0 [place] % (Auto) 7.0 Eos % (Auto) 1.8 Baso % (Auto) 0.4 Lymph # (Auto) 2.2 [place] # (Auto) 0.6 Eos # (Auto) 0.2 Baso # (Auto) 0.0 Abs Immat Gran (auto) 0.03 Absolute Neuts (auto) 5.2 Absolute Nucleated RBC 0.000 Nucleated RBC % (auto) 0.0 PT 14.1 H INR 1.2 H D-Dimer High Sensitivty 433 Anion Gap 13 Estim Creat Clear Calc 167.9 Estimated GFR > 60 Random Glucose 102 Calcium 8.4 D Troponin I High Sens 3.8 < 2.7 B-Natriuretic Peptide 34 Influenza Type A (PCR) NEGATIVE Influenza Type B (PCR) NEGATIVE RSV RNA Qual (PCR) NEGATIVE SARS-CoV-2 RNA (RT-PCR) NEGATIVE Imaging Radiologist's Impressions: Impressions Chest X-Ray 06/06/23 16:27 IMPRESSION: Mild to moderate central pulmonary vascular congestion without overt pulmonary edema. Chest CTA 06/06/23 21:01 IMPRESSION: No evidence for acute or chronic pulmonary embolism. VTE: negative. Assessment and Plan (1) Hypoxic respiratory failure: Qualifiers: Chronicity: acute Qualified Code(s): J96.01 - Acute respiratory failure with hypoxia Status: Acute (2) Asthma: Qualifiers: Asthma severity: moderate Asthma complication type: with acute exacerbation Asthma persistence: unspecified Qualified Code(s): J45.901 - Unspecified asthma with (acute) exacerbation Status: Acute (3) Morbid obesity: Status: Acute (4) Anemia: Qualifiers: Anemia type: unspecified type Qualified Code(s): D64.9 - Anemia, unspecified Status: Acute Plan Joseph Bailey is a 53 years old man admitted with * Hypoxic respiratory failure secondary to acute asthma exacerbation. Admit to hospitalist service. Telemetry. Pulse oximetry. Continue supplemental oxygen to keep O2 sat > 90 %. Continue bronchodilator therapy and IV steroids. Start empiric IV antibiotic treatment with azithromycin as the patient has been having symptoms for a week. * Morbid obesity, BMI 50.9 kg/m2. Patient was advised to lose weight. * Anemia (13.6 --11.6). Likely nutritional. Continue to monitor. Check anemia workup. DVT prophylaxis: Heparin Code status: Full Patient hospitalization for at least 2 midnights for hypoxic respiratory failure secondary to acute asthma exacerbation treatment with supplemental oxygen, IV steroids, empiric IV antibiotic and bronchodilator therapy. Quality Stroke Does the patient have a stroke diagnosis?: No VTE Prior VTE?: No VTE Risk Level:: Medical - moderate - high VTE Device Contraindication: Treatment Not Indicated VTE Drug Contraindication: N/A - Med Ordered
[2023-06-07] VITALS (12 sets, daily range): BP systolic 128–146; BP diastolic 60–64; PULSE 67–84; RESP 15–20; TEMP 36.4–37.1; O2SAT 90–98; BMI 52.7
--- NOTE | 2023-06-07 00:12 | PC.NURSE ---
blood cultures and lactic labs ordered per verbal order from Dr. Arias Caro prior to administering iv abx.
[2023-06-07 00:55] LABS: Lactic Acid 1.9 mmol/L (0.5-2.0)
[2023-06-07] MEDS: Azithromycin 500 MG in 0.9 % Sodium Chloride 250 ML 125 MG IV ×2 (00:56→23:45)
[2023-06-07] MEDS: 0.9 % Sodium Chloride Flush 3 ML SYRINGE IVFLUSH ×4 (00:57→23:40)
[2023-06-07 05:26] LABS: Basophils Percent Auto 0.1 % (0-2); Eosinophils Percent Auto 0.4 % (0-4); Hematocrit 37.3 % (42.0-52.0); Hemoglobin 11.7 g/dl (14.0-18.0); Imm Gran Abs Auto 0.04 X10*3/uL (0.00-0.03); Imm Gran Pct Auto 0.6 % (0.0-0.4); Immature Retic Fraction 29.5 % (2.3-13.4); Lymphocytes Absolute Auto 0.8 X10*3/uL (1.2-4.9); Lymphocytes Percent Auto 10.7 % (20-40); MANUAL DIFF FLAG SCAN; Mean Corpuscular HGB Conc 31.4 g/dl (31.0-36.0); Mean Corpuscular Hemoglobin 27.7 pg (27.0-33.0); Mean Corpuscular Volume 88.2 fL (80.0-98.0); Mean Platelet Volume 10.5 fL (9.4-12.4); Monocytes Absolute Auto 0.1 X10*3/uL (0.1-1.2); Monocytes Percent Auto 1.3 % (2-11); Neutrophils Absolute Auto 6.2 x10*3/uL (2.0-8.3); Neutrophils Percent Auto 86.9 % (45-73); PLT CLUMP 1; Red Blood Count 4.23 X10*6/uL (4.60-5.80); Retic HGB Equivalent 23.2 pg (30.0-35.0); Reticulocyte Percent 2.8 % (0.5-1.8); SCAN SMEAR FLAG 1; White Blood Count 7.1 X10*3/uL (4.8-10.8)
[2023-06-07 05:27] LABS: Platelet Count 248 X10*3/uL (160-400)
[2023-06-07 05:46] LABS: Alanine Aminotransferase 21 U/L (0-40); Albumin Level 3.8 g/dL (3.5-5.0); Alkaline Phosphatase 56 U/L (39-117); Anion Gap 14 (12-20); Aspartate Amino Transferase 21 U/L (5-37); Bilirubin Total 0.5 mg/dL (0.0-1.0); Blood Urea Nitrogen 10 mg/dL (9-16); Calcium 8.7 mg/dL (8.4-10.2); Carbon Dioxide 30 mmol/L (22-29); Chloride 101 mmol/L (96-108); Creatinine Clr Calc Pharmacy 174.3; Estimated Glomerular Filt Rate > 60; Glucose Random 157 mg/dL (60-115); Iron 29 mcg/dL (45-160); Percent Iron Saturation 9 % (15-50); Potassium 4.4 mmol/L (3.3-5.1); Sodium 141 mmol/L (135-145); Total Iron Binding Capacity 341 mcg/dL (228-428); Total Protein 8.5 g/dL (6.5-8.0); Unsaturated Iron Binding 312 ug/dL
[2023-06-07 05:47] LABS: SLIDE REVIEW VERIFIED
[2023-06-07 06:01] LABS: Ferritin 31 ng/mL (20-250)
[2023-06-07 06:09] LABS: Folate 5.7 ng/mL (> or = 4.0); Vitamin B12 241 pg/mL (200-900)
[2023-06-07] MEDS: Albuterol/Iprat 2.5/0.5MG 3 ML AMPUL.NEB INHALE ×4 (06:30→20:22)
--- NOTE | 2023-06-07 08:12 | PHA.MEDREC ---
Pharmacy Consult ? Medication Reconciliation Pharmacy has completed the medication reconciliation with pt, reports no home medications.
[2023-06-07] MEDS: Heparin Sodium,Porcine 5,000 UNIT/ML VIAL 5000 UNIT SUBCUT ×2 (08:53→20:03)
--- NOTE | 2023-06-07 12:23 | MHC.CM.PN ---
PT REPORTS HE RENTS A ROOM IN HIS SONS HOME HE IS INDEPENDENT WITH CARE, WORKS AND DRIVES PT HAS NO DME AND NO SERVICES PT ALSO HAS NO HEALTH INSURANCE AND NO PCP REFERRAL MADE TO [facility] [place] DCP: HOME NO SERVICES VIA SELF TRANSPORT
--- NOTE | 2023-06-07 12:29 | HO.PM.IMPN ---
Subjective Subjective Date of Service: 06/07/23 Interval History: Seen and evaluated this morning Feels mildly better still having some wheezes and requiring O2 supplement extensive psoriatic rash Review of Systems Review of Systems: Yes all other systems are reviewed and are negative Physical Exam Vital Signs: Vital Signs: Last Vital Signs Temp 98.2 F 06/07/23 05:10 Pulse 68 06/07/23 11:24 Resp 16 06/07/23 11:24 BP 143/60 H 06/07/23 05:10 Pulse Ox 97 06/07/23 05:10 O2 Del Method Nasal Cannula 06/07/23 05:10 O2 Flow Rate 3 06/07/23 05:10 BMI result Body Mass Index 50.9 Const: Other: Constitutional : Awake, interactive, not in distress Neck : Normal inspection, Supple Cardiovascular : RRR, no JVP, no lower extremity edema Respiratory : decreased bilateral air entry, no crackles, scattered wheezes Gastrointestinal: soft, lax, Normal bowel sounds, Non tender Skin : Warm, Dry, extensive psoriatic rash on extremities, plaque areas on left knee and RLE Neurological : Alert & oriented x3, No focal deficit , CN 2-12 within normal Objective Data Active Medications Acetaminophen (Acetaminophen 325 Mg Tablet) 650 mg PO Q6H PRN PRN Reason: Pain, Mild (Pain Scale 1-3) Albuterol/Ipratropium (Albuterol/Iprat 2.5/0.5mg 3 Ml Ampul.Neb) 3 ml INHALE RQ4H WHILE AWAKE [facility] Last Admin: 06/07/23 11:17 Dose: 3 ml Documented By: DELLA Heparin Sodium (Porcine) (Heparin Sodium,Porcine 5,000 Unit/Ml Vial) 5,000 unit SUBCUT Q12H [facility] Last Admin: 06/07/23 08:53 Dose: 5,000 unit Documented By: VAN Azithromycin 500 mg/ Sodium (Chloride) 250 mls @ 125 mls/hr IV Q24H [facility] Last Infusion: 06/07/23 03:00 Dose: Infused Documented By: FLAVIA Methylprednisolone Sodium Succinate (Methylprednisolone Sod Succ 40 Mg/Ml Vial) 40 mg IVPUSH Q12H [facility] Sodium Chloride (0.9 % Sodium Chloride Flush 3 Ml Syringe) 3 ml IVFLUSH QSHIFT [facility] Last Admin: 06/07/23 08:54 Dose: 3 ml Documented By: VAN Labs 06/07/23 04:43 06/07/23 04:43 Labs: Laboratory Results - last 24 hr 06/06/23 06/06/23 06/06/23 17:40 18:13 20:37 MCV 86.4 MCH 27.8 MCHC 32.1 RDW 14.9 Plt Count 271 MPV 9.3 L Immature Gran % (Auto) 0.4 Neut % (Auto) 63.4 Lymph % (Auto) 27.0 [place] % (Auto) 7.0 Eos % (Auto) 1.8 Baso % (Auto) 0.4 Lymph # (Auto) 2.2 [place] # (Auto) 0.6 Eos # (Auto) 0.2 Baso # (Auto) 0.0 Abs Immat Gran (auto) 0.03 Absolute Neuts (auto) 5.2 Absolute Nucleated RBC 0.000 Nucleated RBC % (auto) 0.0 Smear Tech's Comments Absolute Retic Percent Retic Immature Retic Fraction Retic Hgb Equivalent PT 14.1 H INR 1.2 H D-Dimer High Sensitivty 433 Anion Gap 13 Estim Creat Clear Calc 167.9 Estimated GFR > 60 Random Glucose 102 Lactic Acid Calcium 8.4 D Iron TIBC % Saturation Unsat Iron Binding Ferritin Total Bilirubin AST ALT Alkaline Phosphatase Troponin I High Sens 3.8 < 2.7 B-Natriuretic Peptide 34 Total Protein Albumin Vitamin B12 Folate TSH Influenza Type A (PCR) NEGATIVE Influenza Type B (PCR) NEGATIVE RSV RNA Qual (PCR) NEGATIVE SARS-CoV-2 RNA (RT-PCR) NEGATIVE 06/07/23 06/07/23 00:37 04:43 MCV 88.2 MCH 27.7 MCHC 31.4 RDW 15.0 Plt Count 248 MPV 10.5 Immature Gran % (Auto) 0.6 H Neut % (Auto) 86.9 H Lymph % (Auto) 10.7 L [place] % (Auto) 1.3 L Eos % (Auto) 0.4 Baso % (Auto) 0.1 Lymph # (Auto) 0.8 L [place] # (Auto) 0.1 Eos # (Auto) 0.0 Baso # (Auto) 0.0 Abs Immat Gran (auto) 0.04 H Absolute Neuts (auto) 6.2 Absolute Nucleated RBC 0.000 Nucleated RBC % (auto) 0.0 Smear Tech's Comments VERIFIED Absolute Retic 0.120 H Percent Retic 2.8 H Immature Retic Fraction 29.5 H Retic Hgb Equivalent 23.2 L PT INR D-Dimer High Sensitivty Anion Gap 14 Estim Creat Clear Calc 174.3 Estimated GFR > 60 Random Glucose 157 H Lactic Acid 1.9 Calcium 8.7 Iron 29 L TIBC 341 % Saturation 9 L Unsat Iron Binding 312 Ferritin 31 Total Bilirubin 0.5 AST 21 ALT 21 Alkaline Phosphatase 56 Troponin I High Sens B-Natriuretic Peptide Total Protein 8.5 H Albumin 3.8 Vitamin B12 241 Folate 5.7 TSH 0.60 Influenza Type A (PCR) Influenza Type B (PCR) RSV RNA Qual (PCR) SARS-CoV-2 RNA (RT-PCR) Assessment and Plan (1) Hypoxia: Status: Acute (2) Anemia: Status: Acute (3) Morbid obesity: Status: Acute (4) Asthma: Status: Acute (5) Hypoxic respiratory failure: Status: Acute Plan Joseph Bailey is a 53 years old man admitted with # Hypoxic respiratory failure secondary to acute asthma exacerbation. Pulse oximetry. Continue supplemental oxygen to keep O2 sat > 90 %. wean as tolerated Continue bronchodilator therapy IV steroids. IV antibiotic treatment with azithromycin for anti-inflammatory effect # Morbid obesity, BMI 50.9 kg/m2. advised to lose weight. # Anemia (13.6 --11.6). Likely nutritional and related to chronic inflammation Continue to monitor. Check anemia workup. # Psoriatic rash Not following with rheum for insurance problem rash getting more extensive will be on steroids for asthma treatment can use creams for now CM consult to address insurance issue DVT prophylaxis: Heparin Code status: Full Patient hospitalization overnight for hypoxic respiratory failure secondary to acute asthma exacerbation treatment with supplemental oxygen, IV steroids, empiric IV antibiotic and bronchodilator therapy. Quality Stroke Does the patient have a stroke diagnosis?: No VTE Prior VTE?: No VTE Risk Level:: Medical - moderate - high VTE Device Contraindication: Treatment Not Indicated VTE Drug Contraindication: N/A - Med Ordered
--- NOTE | 2023-06-07 19:53 | PC.NURSE ---
received report from Niki PAGE, assumed care of pt. pt sitting up in stretcher, 2L nasal canula at this time, sating 93-96%. no acute distress noted. no new orders at this time.
[2023-06-07] MEDS: methylPREDNISolone Sod Succ 40 MG/ML VIAL IVPUSH (20:03)
[2023-06-08 03:01] VITALS: BP 124/58; PULSE 69; RESP 20; TEMP 36.1; O2SAT 93
[2023-06-08 03:47] VITALS: RESP 18; O2SAT 95
--- NOTE | 2023-06-08 06:10 | PC.NURSE ---
Patient admitted to s4 from ED 23:00 hour for AHRF 2/2 acute asthma exacerbation per chart review. A&Ox4. SR 60-80's on tele. Placed on continuous spo2 and 2L nc on arrival per MD orders. Pt transitioned to oxymask for desats/mouth breathing during sleep with nc. Spo2 maintained 90% and above per ordered goal. Pt denies sob. Breathing is even and unlabored without distress. Low falls risk on scoring though pt requires a standby for ambulating to the bathroom for assistance with portable oxygen tank (pt needs o2 or desats without it); educated to call for assistance. No CHAKRABORTY noted or reported by pt. Tolerates activity with o2. Denies pain. Tolerating cardiac diet without n/v. Safety measures in place. Plan of care implemented and continues.
[2023-06-08 07:00] LABS: Hematocrit 36.3 % (42.0-52.0); Hemoglobin 11.6 g/dl (14.0-18.0); Mean Corpuscular Hemoglobin 27.9 pg (27.0-33.0); Mean Corpuscular Volume 87.3 fL (80.0-98.0); Mean Platelet Volume 9.5 fL (9.4-12.4); Platelet Count 275 X10*3/uL (160-400); Red Blood Count 4.16 X10*6/uL (4.60-5.80); Red Cell Distribution Width 15.1 % (11.0-16.0); White Blood Count 8.2 X10*3/uL (4.8-10.8)
[2023-06-08 07:09] VITALS: BP 127/58; PULSE 68; RESP 20; TEMP 36.4; O2SAT 95
[2023-06-08 07:17] LABS: Anion Gap 10 (12-20); Blood Urea Nitrogen 12 mg/dL (9-16); Calcium 8.9 mg/dL (8.4-10.2); Carbon Dioxide 30 mmol/L (22-29); Chloride 104 mmol/L (96-108); Creatinine Clr Calc Pharmacy 195.2; Estimated Glomerular Filt Rate > 60; Glucose Random 133 mg/dL (60-115); Potassium 4.3 mmol/L (3.3-5.1); Sodium 140 mmol/L (135-145)
[2023-06-08] MEDS: Albuterol/Iprat 2.5/0.5MG 3 ML AMPUL.NEB INHALE ×2 (07:43→11:30)
[2023-06-08 07:44] VITALS: PULSE 67; RESP 16; O2SAT 99
[2023-06-08] MEDS: methylPREDNISolone Sod Succ 40 MG/ML VIAL IVPUSH (08:30)
[2023-06-08] MEDS: Heparin Sodium,Porcine 5,000 UNIT/ML VIAL 5000 UNIT SUBCUT (08:30)
[2023-06-08] MEDS: 0.9 % Sodium Chloride Flush 3 ML SYRINGE IVFLUSH (08:31)
[2023-06-08 11:10] VITALS: BP 122/58; PULSE 78; RESP 20; TEMP 36.7; O2SAT 92
[2023-06-08 11:32] VITALS: PULSE 89; RESP 18; O2SAT 98
--- NOTE | 2023-06-08 11:40 | PM.DS ---
DS: Providers Provider Date of Service: 06/08/23 Date of admission: 06/06/23 23:08 Primary care physician: None Physician Consults: 06/07/23 08:52 Consult to Case Management Routine Comment: medical insurance ? needs Rheumatology evaluation DS: Diagnosis Discharge Diagnosis (1) Hypoxia: Status: Acute (2) Anemia: Status: Acute (3) Morbid obesity: Status: Acute (4) Asthma: Status: Acute (5) Hypoxic respiratory failure: Status: Acute DS: Summary Hospital Course Hospital Course: Admission note HPI Joseph Bailey is a 53 years old man with past medical history significant for obesity and asthma presents to the emergency department complaining of shortness of over the last week associated with dry cough. He denies fevers and chills. He mentioned there are many people sick at work. He denied any headache, sore throat, palpitations, nausea or vomiting. He mentioned having abdominal pain which he attributes to excessive coughing. Patient used his niece inhaler which helped a bit with his shortness on breath. Not using daily inhalers. He denied tobacco or marijuana smoking, alcohol abuse or illicit drug use. He mentioned that he was tested for sleep apnea once this is inconclusive. It was supposed to be done again but financial issues this has not been done. Patient does not take any medication at home. In the ED he was found to have stable vital signs, however his oxygen saturation dropped to 80%. He is currently requiring 2 liters/minute supplemental oxygen. Blood workup showed no leukocytosis. Hemoglobin is 11.6 (it was 13.6 on 04/15/23). CO2 is elevated 32. There are no significant electrolyte imbalances. Renal function is normal. Troponin is negative x2. Chest CTA showed no evidence of pulmonary embolism; they are no consolidation, pleural effusion or masses. There are scattered minor discoid atelectasis versus scarring bilaterally. ED tx: DuoNeb 2.5 mg x2, prednisone 50 mg p.o., methylprednisolone 125 mg IV, Ativan 1 mg p.o. Hospital course # Hypoxic respiratory failure secondary to acute asthma exacerbation. Treated with bronchodilator therapy, IV steroids and IV antibiotic treatment with azithromycin for anti-inflammatory effect with good response during hospital stay as he was weaned off O2 and became able to ambulate on RA with no reported dyspnea. To be discharged on Prednisone and albuterol inhalor. # Morbid obesity, BMI 50.9 kg/m2. advised to lose weight. # Anemia (13.6 --11.6). Likely nutritional and related to chronic inflammation. normal folate, B12 and iron profile. for PCP follow up. # Psoriatic rash Not following with rheum for insurance problem. can use creams for now amd ammonium lactate for moisutrizing the skin. CM consulted and working on the insurance issue so he can get [employer] coverage. to be followed as OP. Continue Prednisone as prescribed Use inhalor as needed for SOB\wheezes To follow with Rheumatology as outpatient for psoriasis treatment Use Lotion and Lopez Wrap to keep the legs moist and avoid wounds Time Attestation Discharge Coordination Time (in mins): 36 Quality: Safe Use of Opioids Does Pt have an Active Cancer Diagnosis on the Problem List?: No Quality: Stroke Does the patient have a stroke diagnosis?: No Physical Exam Vital Signs: Vital Signs: Last Vital Signs Temp 98.0 F 06/08/23 11:10 Pulse 89 06/08/23 11:32 Resp 18 06/08/23 11:32 BP 122/58 L 06/08/23 11:10 Pulse Ox 92 06/08/23 11:10 O2 Del Method Room Air 06/08/23 11:10 O2 Flow Rate 2 06/08/23 07:09 BMI result Body Mass Index 52.7 Const: Other: Constitutional : Awake, interactive, obese, not in distress Neck : Normal inspection, Supple Cardiovascular : RRR, no JVP, no lower extremity edema Respiratory : fair bilateral air entry, no crackles, no wheezes Gastrointestinal: soft, lax, Normal bowel sounds, Non tender Skin : Warm, Dry, extensive psoriatic rash on extremities, plaque areas on left knee and RLE Neurological : Alert & oriented x3, No focal deficit , CN 2-12 within normal DS: Data Data Completed and Pending Labs on day of discharge: Laboratory Results - last 24 hr 06/08/23 06:33 WBC 8.2 RBC 4.16 L Hgb 11.6 L Hct 36.3 L MCV 87.3 MCH 27.9 MCHC 32.0 RDW 15.1 Plt Count 275 MPV 9.5 Absolute Nucleated RBC 0.000 Nucleated RBC % (auto) 0.0 Sodium 140 Potassium 4.3 Chloride 104 Carbon Dioxide 30 H Anion Gap 10 L BUN 12 Creatinine 0.72 Estim Creat Clear Calc 195.2 Estimated GFR > 60 Random Glucose 133 H Calcium 8.9 Preliminary micro results at discharge 06/07/23 00:39 Blood Culture - Preliminary Blood - Venous No growth after 24 hours. 06/07/23 00:37 Blood Culture - Preliminary Blood - Venous No growth after 24 hours. Imaging Chest x-ray: Radiologist's impression: ITS Impressions Chest X-Ray 06/06/23 16:27 IMPRESSION: Mild to moderate central pulmonary vascular congestion without overt pulmonary edema. Chest CTA 06/06/23 21:01 IMPRESSION: No evidence for acute or chronic pulmonary embolism. VTE: negative. Discharge Plan Discharge Anticipated Discharge Date/Time: 06/08/23 11:31 Patient Disposition: Home, Self-Care Discharge Diagnosis: Asthma exacerbation Referrals: Physician,None [Primary Care Provider] - 1 Week Discharge Medications: New ammonium lactate 12 % Lotion 1 appl topical BID Qty: 400 2RF Protocol: Apply to: Apply to: Lower extremities bilaterally prednisone 20 mg tablet 40 mg PO DAILY Qty: 8 0RF albuterol sulfate 90 mcg/actuation HFA aerosol inhaler 2 puff inhalation Q6H PRN (Reason: shortness of breath or wheezing) Qty: 6.7 0RF Discharge Orders: Discharge Order (Routine); Ordered 06/08/23 Ordered By: Enedina Dsouza Diet: Advance to usual diet Activity on Discharge: As tolerated Stand Alone Forms: Patient Portal Discharge page Care Plan Goals: Read below Health Concerns: Read below Plan of Treatment: Read below Assessment: Continue Prednisone as prescribed Use inhalor as needed for SOB\wheezes To follow with Rheumatology as outpatient for psoriasis treatment Use Lotion and Lopez Wrap to keep the legs moist and avoid wounds
--- NOTE | 2023-06-08 11:50 | MHC.CM.PN ---
Pt is medically cleared for D/C home self-care, pt has his own transportation home.
--- NOTE | 2023-06-08 12:16 | P.CDIM_ITS ---
PROVIDER RESPONSE TEXT: To clarify, the appropriate diagnosis supported by the clinical indicators: Mild intermittent QUERY TEXT: PHYSICIAN'S DOCUMENTATION REQUEST Date of Query: 06/07/2023 02:37 PM EDT Patient Name: Joseph Bailey Admit Date: 06/07/2023 Dear Enedina Dsouza, A review of the medical record indicates additional documentation may be needed. Please review below and update the documentation accordingly. Clinical indicators: Progress notes: Hypoxic respiratory failure secondary to acute asthma exacerbation Continue bronchodilator therapy IV steroids Based on the above, please clarify in the Progress Notes further specificity regarding the type of as thma: Mild intermittent Mild persistent Moderate persistent Severe persistent Other (explain) Clinically unable to determine (explain) Thank you, Leslie Sadler, CCS, CDIS Use of terms such as suspected, likely, concern for, or probable (associated with a specific diagnosi s that is being evaluated, monitored, or treated as if it exists) are acceptable and can be coded in the inpatient se tting, when documented at the time of discharge. Please use your independent medical judgment in providing your response. THIS QUERY IS PART OF THE PERMANENT MEDICAL RECORD
[2023-06-08] MEDS: Ammonium Lactate 12 % Lotion 226 GM BOTTLE 1 APPL TOPICAL (13:10)
[2023-06-09 17:23] LABS: Transferrin 331 mg/dL (188-341)
== END 2023-06-08 12:30 | disposition home or self-care (01) | DRG 202 ==
LOC: HO.ED 06-07 00:45 → HO.EDOVER 06-07 00:57 → HO.IMC 06-07 19:23
PROVIDERS: Registered Nurse Emergency; Admitting Provider Internal Medicine; Emergency Provider Emergency Medicine; Visit Provider Student in an Organized Health Care Education/Training Program
DX: J45.21 Mild intermittent asthma with (acute) exacerbation (principal); J96.01 Acute respiratory failure with hypoxia; Z68.43 Body mass index [BMI] 50.0-59.9, adult; I87.8 Other specified disorders of veins; L40.9 Psoriasis, unspecified; E66.01 Morbid (severe) obesity due to excess calories; D64.9 Anemia, unspecified; Z20.822 Contact with and (suspected) exposure to COVID-19
CPT/HCPCS: 0241U; 36415; 71046; 71275; 80048; 80053; 82607; 82728; 82746; 83540; 83605; 83880; 84443; 84466; 84484; 85025; 85027; 85045; 85379; 85610; 87040; 93005; 94640; 99222; 99285; J0456; J1644; J2920; J2930; Q9967

== ENCOUNTER → 2023-06-06 17:02 | Outpatient (BNV) | payer MEDICAID, SELFPAY | PROVIDERS: Admitting Provider Internal Medicine; Emergency Provider Emergency Medicine; Visit Provider Internal Medicine Cardiovascular Disease | DX: R06.02 Shortness of breath (principal) | CPT/HCPCS: 93010 ==

== ENCOUNTER → 2023-06-06 17:06 | Outpatient (BNV) | payer MEDICAID, SELFPAY | PROVIDERS: Emergency Provider Emergency Medicine; Visit Provider Internal Medicine | DX: J96.01 Acute respiratory failure with hypoxia (principal); J45.901 Unspecified asthma with (acute) exacerbation; E66.01 Morbid (severe) obesity due to excess calories; Z68.43 Body mass index [BMI] 50.0-59.9, adult; D64.9 Anemia, unspecified | CPT/HCPCS: 99223; 99232; 99239 ==

== ENCOUNTER 2023-07-21 18:29 | Emergency (ER) | payer OTHER, SELFPAY ==
--- NOTE | ~2023-07-21 | US_ITS ---
EXAMINATION: US VENOUS ULTRASOUND WITH DOPPLER LOWER EXTREMITY, LEFT CLINICAL INFORMATION: Left lower extremity pain and swelling. COMPARISON: None available. TECHNIQUE: Ultrasound of the deep veins is performed from the hip to the calf with compression sonography and color and pulse Doppler assessment. Spectral analysis with color-flow imaging is performed. FINDINGS: There is normal venous compression and respiratory variation and augmented flow. The visualized common femoral vein, superficial femoral vein, profunda femoral vein, popliteal vein, and the trifurcation region shows no evidence of deep venous thrombosis. There is no significant popliteal fossa cyst. Partially imaged approximately 1.8 x 5 cm node in the left inguinal region. US/US venous duplex LE LT IMPRESSION: 1. No DVT demonstrated in the left lower extremity. If the patient's symptoms persist, followup ultrasound in 5 days 7 days might be of value to exclude proximal propagation from a non-visualized calf vein. 2. Partially imaged up to 5 cm node in the left inguinal region, possibly representing an inguinal lymph node. Recommend further dedicated sonographic evaluation.
[2023-07-21 18:37] VITALS: BP 160/70; PULSE 92; RESP 20; TEMP 36.6; O2SAT 94; BMI 53.2
--- NOTE | 2023-07-21 19:22 | ED_ITS ---
HPI - General Adult General Chief complaint: Skin/Abscess/Foreign Body Stated complaint: cellulitis? Time Seen by Provider: 07/21/23 23:24 Source: patient, RN notes reviewed and old records reviewed Mode of arrival: ambulatory Limitations: no limitations History of Present Illness HPI narrative: 53-year-old male past medical history significant for hypertension, psoriasis, lymphedema, morbid obesity, asthma presents for evaluation of redness to both legs. Patient reports that he was admitted about a month and a half ago Use admitted for asthma and was treated with steroids He also had some redness to his legs. He reports that with the steroids he was getting for his asthma the redness on his rash improved The patient has not been following with Dermatology due to insurance issues. He reports that he finally received his insurance and will attempt to see Dermatology as an outpatient He reports redness that was initially only on his right leg but now is on his left leg There is no weeping fluid in the left leg but there is some on the right He denies any fevers Related Data Previous Rx's ?Medication ?Instructions ?Recorded albuterol sulfate 90 mcg/actuation 2 puff inhalation Q6H PRN 06/08/23 aerosol inhaler shortness of breath or wheezing #6.7 grams ammonium lactate 12 % lotion 1 appl topical BID #400 grams 06/08/23 prednisone 20 mg tablet 40 mg (2 x 20 mg) PO DAILY #8 tabs 06/08/23 amlodipine 10 mg tablet 10 mg PO DAILY #30 tabs 07/21/23 cefuroxime axetil 500 mg tablet 500 mg PO BID #20 tabs 07/21/23 prednisone 20 mg tablet 40 mg (2 x 20 mg) PO DAILY #20 tabs 07/21/23 Allergies Allergy/AdvReac Type Severity Reaction Status Date / Time No Known Allergies Allergy Verified 07/21/23 18:38 Review of Systems 2 Constitutional: Constitutional: Denies body ache(s), Denies chills and Denies fever(s) Eyes: Eyes: Denies blurry vision ENT: Denies sore throat and Denies throat swelling Cardiovascular: Cardiovascular: Denies chest pain and Denies dyspnea Respiratory: Respiratory: Denies cough and Denies dyspnea Gastrointestinal: Gastrointestinal: Denies abdominal pain, Denies nausea and Denies vomiting Integumentary/Breasts: Skin/Breast: Reports erythema, Reports rash and Denies wounds Allergic/Immunologic: Allergic/Immunologic: Denies throat swelling PMFSH Past Medical History Medical History (Updated 07/21/23 @ 23:59 by Stanford Jefferson) Morbid obesity Psoriasis Social History Social History Household Members: Children Household Members Other:: Son and daughter in law Housing: House Do you presently have visiting nurse or other home services: No Alcohol intake: former Patient Tobacco Use Status: Never used Tobacco Advance Directives: No Advance Directives Information Provided: Yes Do you have a plan to hurt others: No Plan service: No Physical Exam ED Vital Signs: Vital Signs - 24 hr 07/21/23 18:37 07/21/23 23:28 07/22/23 00:08 Temperature 97.9 F 98.8 F 98.8 F Pulse Rate 92 78 78 Respiratory Rate 20 16 16 Blood Pressure 160/70 H 170/82 H 170/82 H Pulse Oximetry 94 95 95 Oxygen Delivery Method Room Air Room Air Room Air BMI result Body Mass Index 53.2 Const General: healthy appearing, comfortable, no acute distress, alert and awake Nutritional Appearance: well nourished and obese morbidly obese Orientation/consciousness: patient oriented x3 HENMT Head: Yes normocephalic and Yes atraumatic Eyes Eyelids: Yes eyelids normal Conjunctivae: conjunctivae normal Sclerae: sclerae normal Corneas: corneas normal Pupils: Equal, round and reactive pupils present EOM: EOMs intact bilaterally Neck Neck: Yes full ROM Resp Effort & Inspection: normal respiratory effort, able to speak in complete sentences, no audible wheezes and not labored Auscultation: clear to auscultation bilaterally Cardio Rate: regular rate Rhythm: regular rhythm Skin Other: Patient has severe psoriasis plaques covering most of his extensor surfaces. He has bilateral lower extremity edema with blanching erythema. There is no increased warmth. No purulence Neuro General: patient oriented x3 Cranial nerves: Yes Equal, round and reactive pupils present and Yes Bilaterally intact EOM present Cognition (Neuro): normal cognition Extrem Other: Moving all extremities well without any obvious deformities Course Course Course Narrative: This is an RME: Additional HPI, ROS, PE not included below will be deferred to primary provider. 53 yo m with pmhx of obesity, asthma presents with rash to left lower leg. States he has had cellulitis in right leg, now the feeling is in left. Denies chest pain, sob, fevers, chills, nausea, vomiting. Medications Administered Discontinued Medications Generic Name Dose Route Start Last Admin Trade Name Nandini PRN Reason Stop Dose Admin Cefuroxime Axetil 500 mg 07/21/23 23:45 07/21/23 23:54 Cefuroxime Axetil 500 Mg Tablet PO 07/21/23 23:46 500 mg ONCE ONE Administration Prednisone 40 mg 07/21/23 23:45 07/21/23 23:54 Prednisone 20 Mg Tablet PO 07/21/23 23:46 40 mg ONCE ONE Administration Medical Decision Making Medical Decision Making [facility] Narrative: Patient's workup shows no leukocytosis, he is afebrile. He has anemia consistent with his baseline. His chemistries are significant for an elevated CO2 which is likely due to obesity and sleep apnea. His glucose is elevated to 165, but this was a random draw. He denies any known history of diabetes. There is no evidence of DKA. The patient's exam is more consistent with lymphedema cellulitis. However he does have several excoriation henderson due to his psoriasis. His ultrasound shows no evidence of DVT but does show an inguinal lymph node which may be reactive to some degree of cellulitis. Will cover with cefuroxime. Differential Diagnosis Differential Diagnoses: The differential diagnosis associated with the presentation includes DVT Cellulitis Lymphedema Popliteal cyst Lab Data [facility] Lab Attestation statement: I reviewed the patient's lab results. See above 07/21/23 20:03 07/21/23 20:03 Labs: Lab Results 07/21/23 Range/Units 20:03 WBC 8.9 (4.8-10.8) X10*3/uL RBC 4.70 (4.60-5.80) X10*6/uL Hgb 12.6 L (14.0-18.0) g/dl Hct 39.6 L (42.0-52.0) % MCV 84.3 (80.0-98.0) fL MCH 26.8 L (27.0-33.0) pg MCHC 31.8 (31.0-36.0) g/dl RDW 15.0 (11.0-16.0) % Plt Count 244 (160-400) X10*3/uL MPV 9.6 (9.4-12.4) fL Immature Gran % (Auto) 0.2 (0.0-0.4) % Neut % (Auto) 63.2 (45-73) % Lymph % (Auto) 23.2 (20-40) % Perry % (Auto) 5.4 (2-11) % Eos % (Auto) 7.4 H (0-4) % Baso % (Auto) 0.6 (0-2) % Lymph # (Auto) 2.1 (1.2-4.9) X10*3/uL [place] # (Auto) 0.5 (0.1-1.2) X10*3/uL Eos # (Auto) 0.7 H (0.0-0.4) X10*3/uL Baso # (Auto) 0.1 (0.0-0.2) X10*3/uL Abs Immat Gran (auto) 0.02 (0.00-0.03) X10*3/uL Absolute Neuts (auto) 5.7 (2.0-8.3) x10*3/uL Absolute Nucleated RBC 0.000 (0.0-0.012) X10*3/uL Nucleated RBC % (auto) 0.0 (0.0-0.2) /100WBC PT 12.5 (11.1-13.3) SEC INR 1.0 (0.9-1.1) Sodium 140 (135-145) mmol/L Potassium 3.9 (3.3-5.1) mmol/L Chloride 103 (96-108) mmol/L Carbon Dioxide 31 H (22-29) mmol/L Anion Gap 10 L (12-20) BUN 10 (9-16) mg/dL Creatinine 0.84 (0.5-1.4) mg/dL Estim Creat Clear Calc 168.3 Estimated GFR > 60 Random Glucose 165 H (60-115) mg/dL Calcium 9.2 (8.4-10.2) mg/dL Magnesium 1.9 (1.6-2.6) mg/dL Total Bilirubin 0.5 (0.0-1.0) mg/dL AST 14 (5-37) U/L ALT 15 (0-40) U/L Alkaline Phosphatase 67 (39-117) U/L Total Protein 8.0 (6.5-8.0) g/dL Albumin 3.9 (3.5-5.0) g/dL Radiology Impression Discussion of test interpretation with radiology: I have reviewed the radiologist's reading. Radiologist Impression: 1. No DVT demonstrated in the left lower extremity. If the patient's symptoms persist, followup ultrasound in 5 days 7 days might be of value to exclude proximal propagation from a non-visualized calf vein. 2. Partially imaged up to 5 cm node in the left inguinal region, possibly representing an inguinal lymph node. Recommend further dedicated sonographic evaluation. Discharge Plan Discharge Clinical Impression: Lymphedema, Psoriasis, Hypertension Patient Disposition: Home, Self-Care Instructions: Psoriasis (ED), Lymphedema (ED) Additional Instructions: You have a swollen lymph node in the left side leg which could reflect infectious changes to the leg Take cefuroxime twice daily for 1 week Take prednisone twice daily for 10 days Follow-up with your primary doctor and outpatient dermatology as planned Return for new or worsening symptoms Prescriptions: New prednisone 20 mg tablet 40 mg PO DAILY Qty: 20 0RF cefuroxime axetil 500 mg tablet 500 mg PO BID Qty: 20 0RF amlodipine 10 mg tablet 10 mg PO DAILY Qty: 30 0RF No Action ammonium lactate 12 % Lotion 1 appl topical BID Qty: 400 2RF Protocol: Apply to: Apply to: Lower extremities bilaterally prednisone 20 mg tablet 40 mg PO DAILY Qty: 8 0RF albuterol sulfate 90 mcg/actuation HFA aerosol inhaler 2 puff inhalation Q6H PRN (Reason: shortness of breath or wheezing) Qty: 6.7 0RF Interventions: ED Discharge Assessment Last Done: 07/22/23 00:08 Discharge Date/Time: 07/22/23 00:11 Print Language: Australian
[2023-07-21 20:07] LABS: MANUAL DIFF FLAG NO
[2023-07-21 20:10] LABS: Basophils Absolute Auto 0.1 X10*3/uL (0.0-0.2); Basophils Percent Auto 0.6 % (0-2); Eosinophils Absolute Auto 0.7 X10*3/uL (0.0-0.4); Eosinophils Percent Auto 7.4 % (0-4); Hematocrit 39.6 % (42.0-52.0); Hemoglobin 12.6 g/dl (14.0-18.0); Imm Gran Abs Auto 0.02 X10*3/uL (0.00-0.03); Imm Gran Pct Auto 0.2 % (0.0-0.4); Lymphocytes Absolute Auto 2.1 X10*3/uL (1.2-4.9); Lymphocytes Percent Auto 23.2 % (20-40); Mean Corpuscular HGB Conc 31.8 g/dl (31.0-36.0); Mean Corpuscular Hemoglobin 26.8 pg (27.0-33.0); Mean Corpuscular Volume 84.3 fL (80.0-98.0); Mean Platelet Volume 9.6 fL (9.4-12.4); Monocytes Absolute Auto 0.5 X10*3/uL (0.1-1.2); Monocytes Percent Auto 5.4 % (2-11); Neutrophils Absolute Auto 5.7 x10*3/uL (2.0-8.3); Neutrophils Percent Auto 63.2 % (45-73); Platelet Count 244 X10*3/uL (160-400); White Blood Count 8.9 X10*3/uL (4.8-10.8)
[2023-07-21 20:14] LABS: Prothrombin Time 12.5 SEC (11.1-13.3)
[2023-07-21 20:24] LABS: Alanine Aminotransferase 15 U/L (0-40); Albumin Level 3.9 g/dL (3.5-5.0); Alkaline Phosphatase 67 U/L (39-117); Anion Gap 10 (12-20); Aspartate Amino Transferase 14 U/L (5-37); Bilirubin Total 0.5 mg/dL (0.0-1.0); Blood Urea Nitrogen 10 mg/dL (9-16); Calcium 9.2 mg/dL (8.4-10.2); Carbon Dioxide 31 mmol/L (22-29); Chloride 103 mmol/L (96-108); Creatinine Clr Calc Pharmacy 168.3; Estimated Glomerular Filt Rate > 60; Glucose Random 165 mg/dL (60-115); Magnesium 1.9 mg/dL (1.6-2.6); Potassium 3.9 mmol/L (3.3-5.1); Sodium 140 mmol/L (135-145)
[2023-07-21 23:28] VITALS: BP 170/82; PULSE 78; RESP 16; TEMP 37.1; O2SAT 95
[2023-07-21] MEDS: cefuroxime axetiL 500 MG TABLET PO (23:54)
[2023-07-21] MEDS: predniSONE 20 MG TABLET 40 MG PO (23:54)
[2023-07-22 00:08] VITALS: BP 170/82; PULSE 78; RESP 16; TEMP 37.1; O2SAT 95
== END 2023-07-22 00:11 | disposition home or self-care (01) ==
PROVIDERS: Physician Assistant; Emergency Provider Emergency Medicine
DX: I89.0 Lymphedema, not elsewhere classified (principal); L40.9 Psoriasis, unspecified; I10 Essential (primary) hypertension; R73.9 Hyperglycemia, unspecified; J45.909 Unspecified asthma, uncomplicated
CPT/HCPCS: 36415; 80053; 83735; 85025; 85610; 93971; 99283; 99284

== ENCOUNTER 2023-08-05 19:14 | Emergency (ER) | payer OTHER, SELFPAY ==
--- NOTE | ~2023-08-05 | CT_ITS ---
EXAMINATION: CT CHEST WITHOUT CONTRAST CLINICAL INFORMATION: Fall. Left-sided pain COMPARISON: Selected portions of CT 06/06/23 TECHNIQUE: Multidetector volumetric CT imaging of the chest was done. Axial MIP volume rendering provided. Sagittal and coronal reformatted images were obtained. This CT examination was performed using dose optimization techniques as appropriate, variously including the following: *Automated exposure control *Adjustment of mA and/or kV according to patient size (this includes techniques or standardized protocols for targeted exams where dose is matched to indication/reason for exam; i.e. extremities or head) *Use of iterative reconstruction technique DLP: 838 mGy-cm FINDINGS: ANESTHESIOLOGIST ATTENDING: Prominent cardiac silhouette and mediastinum. LUNGS: Limited by motion. No suspicious abnormality the trachea or mainstem bronchi. There is no alveolar edema. No dense area of consolidation. There is an unchanged fissural lymph node on the right which does not require any specific imaging follow-up MEDIASTINUM: No suspicious mass. No enlarged lymph nodes. No suspicious abnormality the esophagus. CORONARY ARTERY CALCIFICATION: None visualized on this study. PLEURA: No significant pleural fluid. No pneumothorax. AXILLA: No lymphadenopathy. UPPER ABDOMEN: No suspicious abnormality OSSEOUS STRUCTURES: No definite acute displaced rib fracture. Minor irregularities of the anterior lower left ribs appear unchanged and could be chronic. CT/CT chest wo IV con IMPRESSION: No mediastinal hematoma. No pleural fluid or pneumothorax. No acute displaced rib fracture demonstrated. Fleischner guidelines were followed.
[2023-08-05 19:42] VITALS: BP 153/83; PULSE 79; RESP 20; TEMP 36.8; O2SAT 97; BMI 51.6
--- NOTE | 2023-08-05 19:45 | ED.GENADULT ---
HPI - General Adult General Chief complaint: Fall Stated complaint: cracked rib? Time Seen by Provider: 08/05/23 22:28 Source: patient Mode of arrival: ambulatory Limitations: no limitations History of Present Illness HPI narrative: 53 yo male with PMH of psoriasis, asthma, obesity here with c/o tripping and striking L ribs on concrete last Wednesday no LOC, hurts to move touch and take a deep breath. No other trauma reported. MD complaint: rib injury Onset (ago): day(s) (6) Location: chest Radiation: non-radiation Severity: moderate Quality: aching Pain Consistency: intermittent Relieving factors: rest Exacerbating factors: other (stretching, lifting) Associated symptoms: denies other symptoms Treatments prior to arrival: none Related Data Previous Rx's ?Medication ?Instructions ?Recorded albuterol sulfate 90 mcg/actuation 2 puff inhalation Q6H PRN 06/08/23 aerosol inhaler shortness of breath or wheezing #6.7 grams ammonium lactate 12 % lotion 1 appl topical BID #400 grams 06/08/23 prednisone 20 mg tablet 40 mg (2 x 20 mg) PO DAILY #8 tabs 06/08/23 amlodipine 10 mg tablet 10 mg PO DAILY #30 tabs 07/21/23 cefuroxime axetil 500 mg tablet 500 mg PO BID #20 tabs 07/21/23 prednisone 20 mg tablet 40 mg (2 x 20 mg) PO DAILY #20 tabs 07/21/23 Allergies Allergy/AdvReac Type Severity Reaction Status Date / Time No Known Allergies Allergy Verified 08/05/23 19:44 Review of Systems Review of Systems: Constitutional : No Weight loss, No Fever, No Chills ENT/Mouth : No sore throat, No Rhinorrhea Eyes: No Eye Pain, No Swelling Cardiovascular : pos Chest Pain, no SOB Respiratory : No Cough, No Sputum Gastrointestinal : no Nausea, No Vomiting, No Diarrhea, No abdominal Pain, No Hematochezia, No Melena Genitourinary : No Dysuria, No Urinary Frequency Musculoskeletal : No joint pain, No Myalgias, No Joint Swelling Skin : No Skin Lesions, No rash Neuro : No Weakness, No Numbness, No Dizziness, No Headache All other systems reviewed and are negative PMFSH Past Medical History Attestation statement: The following information was validated with the patient. Source: old records reviewed Medical History Anemia Asthma Morbid obesity Psoriasis Social History Social History Household Members: Children Household Members Other:: Son and daughter in law Housing: House Do you presently have visiting nurse or other home services: No Alcohol intake: former Patient Tobacco Use Status: Never used Tobacco Advance Directives: No Advance Directives Information Provided: No service: No Physical Exam ED Vital Signs: Vital Signs - 24 hr 08/05/23 19:42 Temperature 98.3 F Pulse Rate 79 Respiratory Rate 20 Blood Pressure 153/83 H Pulse Oximetry 97 Oxygen Delivery Method Room Air BMI result Body Mass Index 51.6 Appearance: Alert. Oriented X3. No acute distress. Eyes: Pupils equal, round and reactive to light. ENT: Pharynx normal. Neck: Normal inspection. Neck supple. CVS: Normal heart rate and rhythm. Pulses normal. Chest: ttp along L anterior lateral ribs Respiratory: No respiratory distress. Breath sounds normal. Abdomen: Soft and nontender. Skin: Skin warm and dry. Normal skin color. Normal skin turgor. Extremities: No lower extremity edema. No calf ttp Neuro: Oriented X 3. No motor deficit. No sensory deficit. Course Course Course Narrative: RME: 53-year-old male presents to ED for left rib pain since falling onto concrete slab 2 days ago. Painful to touch in left rib area. Who sent for chest CT check for cracked rib. REst pf of exam benign lungs are clear. Medical Decision Making Medical Decision Making [facility] Narrative: 53 yo male with PMH of psoriasis, asthma, obesity here with c/o fall last Wednesday now with c/o L rib pain at this time CT chest ordered to rule out fracture. No head/cspine or abdominal pain we had a long talk about pain control or patches but he declines at this time. Needs a work note. Differential Diagnosis Differential Diagnoses: The differential diagnosis associated with the presentation includes contusion, fracture no abdominal pain almost one week ago doubt ICH Lab Data [facility] Lab Attestation statement: I reviewed the patient's lab results. Independent Interpretation I performed an independent interpretation of an: CT Scan (no fracture) Radiology Impression Discussion of test interpretation with radiology: I have reviewed the radiologist's reading. External Record Review External record reviewed: Inpatient record Prescription Management I considered prescription management with: Pain Medication and Other he declined pain medications Discharge Plan Discharge Clinical Impression: Contusion of rib on left side Patient Disposition: Home, Self-Care Instructions: Rib Contusion (ED) Additional Instructions: return for worsening pain, fevers, change in sputum production, worsening breathing or any other concerns. no lifting more than 10lbs for 2 weeks Prescriptions: No Action ammonium lactate 12 % Lotion 1 appl topical BID Qty: 400 2RF Protocol: Apply to: Apply to: Lower extremities bilaterally prednisone 20 mg tablet 40 mg PO DAILY Qty: 8 0RF albuterol sulfate 90 mcg/actuation HFA aerosol inhaler 2 puff inhalation Q6H PRN (Reason: shortness of breath or wheezing) Qty: 6.7 0RF prednisone 20 mg tablet 40 mg PO DAILY Qty: 20 0RF cefuroxime axetil 500 mg tablet 500 mg PO BID Qty: 20 0RF amlodipine 10 mg tablet 10 mg PO DAILY Qty: 30 0RF Stand Alone Forms: Work/School Release Interventions: ED Discharge Assessment Last Done: 08/05/23 23:26 Discharge Date/Time: 08/05/23 23:28 Print Language: Citizen Of [place]
[2023-08-05 23:26] VITALS: BP 138/82; PULSE 72; RESP 20; TEMP 36.6; O2SAT 97
== END 2023-08-05 23:28 | disposition home or self-care (01) ==
PROVIDERS: Emergency Provider Emergency Medicine
DX: S20.213A Contusion of bilateral front wall of thorax, initial encounter (principal); W01.10XA Fall on same level from slipping, tripping and stumbling with subsequent striking against unspecified object, initial encounter; Y93.9 Activity, unspecified; Y92.9 Unspecified place or not applicable; Y99.8 Other external cause status
CPT/HCPCS: 71250; 99282; 99284

== ENCOUNTER 2023-10-31 20:28 | Emergency (ER) | payer SELFPAY ==
--- NOTE | ~2023-10-31 | XR_ITS ---
EXAMINATION: XR TIBIA AND FIBULA, LEFT CLINICAL INFORMATION: Wound COMPARISON: None available. TECHNIQUE: AP and lateral views of the left tibia and fibula were obtained. FINDINGS: Alignment at the knee and ankle appears anatomic on these views. No acute fracture is seen. Subcutaneous edema is present throughout the leg, most prominently at the ankle. Posterior calcaneal spur is noted. XR/XR tibia fibula LT 2V IMPRESSION: Subcutaneous edema throughout the leg, most prominently at the ankle. No acute osseous findings.
--- NOTE | ~2023-10-31 | XR_ITS ---
EXAMINATION: XR TIBIA AND FIBULA, RIGHT CLINICAL INFORMATION: Wound COMPARISON: None available. TECHNIQUE: AP and lateral views of the right tibia and fibula were obtained. FINDINGS: Alignment at the knee and ankle appears anatomic on these views. No acute fracture is seen. Subcutaneous edema noted throughout the lower leg. Posterior calcaneal spur is present. XR/XR tibia fibula RT 2V IMPRESSION: Subcutaneous edema throughout the lower leg. No acute osseous findings.
[2023-10-31 20:48] VITALS: BP 188/94; PULSE 85; RESP 18; TEMP 36.7; O2SAT 93; BMI 51.9
--- NOTE | 2023-10-31 21:50 | ED_ITS ---
HPI - General Adult General Chief complaint: Wound/Laceration Stated complaint: cellulitis Time Seen by Provider: 10/31/23 21:48 Source: patient Mode of arrival: ambulatory Limitations: no limitations History of Present Illness ED Provider: Belgica Wright PA-C HPI narrative: Patient is a 53 year old assigned male at with a history of HTN on amlodipine presenting to the emergency department today with bilateral lower leg redness. Patient states that he has not been taking his blood pressure medication as prescribed and has been transitioning between primary care providers as he has recently moved. Patient states that over the last few days his lower legs have begun weeping and getting more red than usual. Patient states that he has been dealing with this issue for a year on the right leg, it was getting better, but now it isn't. Patient denies any dizziness, lightheadedness, abdominal pain, nausea, vomiting, fever, chills, blurry vision, double vision, loss of vision, chest pain, difficulty breathing, shortness of breath, back pain, night sweats, pain with urination, increased urinary frequency, increased urinary urgency, blood in his urine or stool, syncope or a near syncopal episode, recent trauma or falls, bowel incontinence, bladder incontinence, or any other complaints at this time. Relieving factors: none Exacerbating factors: none Associated symptoms: denies other symptoms Treatments prior to arrival: none Related Data Previous Rx's ?Medication ?Instructions ?Recorded albuterol sulfate 90 mcg/actuation 2 puff inhalation Q6H PRN 06/08/23 aerosol inhaler shortness of breath or wheezing #6.7 grams ammonium lactate 12 % lotion 1 appl topical BID #400 grams 06/08/23 prednisone 20 mg tablet 40 mg (2 x 20 mg) PO DAILY #8 tabs 06/08/23 amlodipine 10 mg tablet 10 mg PO DAILY #30 tabs 07/21/23 cefuroxime axetil 500 mg tablet 500 mg PO BID #20 tabs 07/21/23 prednisone 20 mg tablet 40 mg (2 x 20 mg) PO DAILY #20 tabs 07/21/23 amlodipine 10 mg tablet 10 mg PO DAILY #30 tabs 10/31/23 cephalexin 500 mg capsule 500 mg PO Q6H 10 days #40 caps 10/31/23 doxycycline hyclate 100 mg tablet 100 mg PO BID 10 days #20 tabs 10/31/23 Allergies Allergy/AdvReac Type Severity Reaction Status Date / Time No Known Allergies Allergy Verified 10/31/23 20:55 Review of Systems 2 Constitutional: Constitutional: Reports no additional constitutional complaints, Denies chills, Denies fever(s) and Denies night sweats Eyes: Eyes: Reports no additional eye complaints, Denies blurry vision, Denies change in vision, Denies diplopia, Denies eye discharge, Denies loss of vision and Denies eye pain ENT: Denies dizziness Cardiovascular: Cardiovascular: Reports no additional cardiovascular complaints, Denies chest pain, Denies lightheadedness, Denies Loss of Consciousness and Denies dyspnea Respiratory: Respiratory: Reports no additional respiratory complaints and Denies dyspnea Gastrointestinal: Gastrointestinal: Reports no additional gastrointestinal complaints, Denies abdominal pain, Denies melena, Denies hematochezia, Denies change in bowel habits and Denies change in stool character Genitourinary: Genitourinary: Reports no additional male genitourinary complaints, Denies hematuria, Denies oliguria, Denies difficulty urinating, Denies dysuria, Denies urinary frequency, Denies urinary hesitancy, Denies urinary incontinence and Denies urinary urgency Musculoskeletal: Musculoskeletal: Reports no additional musculoskeletal complaints, Denies numbness and Denies tingling Integumentary/Breasts: Comments: bilateral lower leg redness and weeping Neurologic: Denies dizziness, Denies loss of vision, Denies numbness and Denies tingling Psychiatric: Psychiatric: Reports no additional psychiatric complaints Endocrine: Endocrine: Reports no additional endocrine complaints Hematologic/Lymphatic: Hematologic/Lymphatic: Reports no additional hematologic/lymphatic complaints Allergic/Immunologic: Allergic/Immunologic: Reports no additional allergic/immunologic complaints [facility] Past Medical History Attestation statement: The following information was validated with the patient. Source: old records reviewed and nursing notes reviewed Medical History Anemia Asthma Morbid obesity Psoriasis Social History Social History Household Members: Children Household Members Other:: Son and daughter in law Housing: House Do you presently have visiting nurse or other home services: No Alcohol intake: former Patient Tobacco Use Status: Never used Tobacco Smoked in Last 30 Days: No Use of substances other than those prescribed or required for medical reasons: No Advance Directives: No Advance Directives Information Provided: No Do you have a plan to hurt others: No Plan service: No Physical Exam ED Vital Signs: Vital Signs - 24 hr 10/31/23 20:48 10/31/23 22:00 10/31/23 22:48 Temperature 98.1 F 98.3 F 98.3 F Pulse Rate 85 79 79 Respiratory Rate 18 17 17 Blood Pressure 188/94 H 164/85 H 164/85 H Pulse Oximetry 93 95 95 Oxygen Delivery Method Room Air Room Air Room Air BMI result Body Mass Index 51.9 Const General: cooperative, no acute distress, alert and awake Nutritional Appearance: well nourished Orientation/consciousness: patient oriented x3 Limitations: no limitations HENMT Head: Yes normal to inspection and Yes atraumatic Ears: hearing grossly normal bilaterally and external ears normal General nose exam: Normal external nose present, no nasal discharge noted and no epistaxis Face and sinus: Yes normal facial exam, No abrasion and No laceration Mouth: Normal oral and palatal mucosa present, no drooling and no muffled voice Eyes General: appearance normal, both eyes and all related structures Periorbital: periorbital findings normal Eyelids: Yes eyelids normal Conjunctivae: conjunctivae normal Pupils: Equal, round and reactive pupils present EOM: EOMs intact bilaterally Neck Neck: Yes normal visual inspection, Yes full ROM and Yes no lymphadenopathy Chest Chest palpation & inspection: normal inspection of the chest Resp Effort & Inspection: normal respiratory effort and able to speak in complete sentences GI Inspection: Yes normal to inspection Neuro General: patient oriented x3 and moves all extremities Cranial nerves: Yes Equal, round and reactive pupils present Cognition (Neuro): normal cognition Extrem Other: General: Yes full ROM and Yes capillary refill normal Psych Appearance: grossly normal Mental Status: mental status grossly normal Affect: normal affect Attitude: cooperative Thought process: Normal thought process present Thought content: Normal thought content present Insight: Good insight present (Psych) Medications Administered Discontinued Medications Generic Name Dose Route Start Last Admin Trade Name Freq PRN Reason Stop Dose Admin Cephalexin HCl 500 mg 10/31/23 22:32 10/31/23 22:44 Cephalexin 500 Mg Capsule PO 10/31/23 22:33 500 mg ONCE ONE Administration Doxycycline Monohydrate 100 mg 10/31/23 22:32 10/31/23 22:44 Doxycycline Monohydrate 100 Mg Capsule PO 10/31/23 22:33 100 mg ONCE ONE Administration Medical Decision Making Medical Decision Making [facility] Narrative: Patient is a 53 year old assigned male at with a history of HTN on amlodipine presenting to the emergency department today with bilateral lower leg redness and weeping. Patient's physical exam was as noted in the physical exam portion of this note. Patient's blood pressure was elevate which is consistent with his history of HTN and not taking his medications for it. Patient's blood work showed a CRP of 2.92 and an ESR of 28. Patient's bilateral tib/fib x-rays showed subcutaneous edema on the right side but were otherwise unremarkable. Patient's clinical presentation is most consistent with a superimposed cellulitis on a chronic venous stasis dermatitis. I explained my physical exam findings as well as all test results to the patient. I answered all questions asked by the patient. I stressed the importance of the patient taking his medication as directed (either prescribed or as the over the counter packaging recommends). I stressed the importance of the patient following up with his primary care provider and the wound center. I stressed the importance of the patient returning to the emergency department immediately if his symptoms were to worsen or if he were to develop any dizziness, shortness of breath, difficulty breathing, chest pain, blurry vision, loss of vision, nausea, vomiting, abdominal pain, fever, chills, back pain, or any other complaints. Patient verbalized agreement and understanding with this treatment plan and discharge. Differential Diagnosis Differential Diagnoses: The differential diagnosis associated with the presentation includes Lower leg cellulitis HTN Poor medication compliance Admission/Observation Consideration of admission/observation: Escalation of care including admission/observation considered Patient would have been admitted to the hospital had his work up had any findings where hospital admission was appropriate and his clinical presentation warranted hospital admission. Lab Data [facility] Lab Attestation statement: I reviewed the patient's lab results. My interpretation of these results are in the [facility] Rationale portion of this note. 10/31/23 21:45 10/31/23 21:45 Labs: Lab Results 10/31/23 Range/Units 21:45 WBC 8.3 (4.8-10.8) X10*3/uL RBC 4.50 L (4.60-5.80) X10*6/uL Hgb 12.1 L (14.0-18.0) g/dl Hct 37.3 L (42.0-52.0) % MCV 82.9 (80.0-98.0) fL MCH 26.9 L (27.0-33.0) pg MCHC 32.4 (31.0-36.0) g/dl RDW 14.6 (11.0-16.0) % Plt Count 246 (160-400) X10*3/uL MPV 9.9 (9.4-12.4) fL Immature Gran % (Auto) 0.1 (0.0-0.4) % Neut % (Auto) 65.7 (45-73) % Lymph % (Auto) 23.5 (20-40) % [place] % (Auto) 6.7 (2-11) % Eos % (Auto) 3.6 (0-4) % Baso % (Auto) 0.4 (0-2) % Lymph # (Auto) 2.0 (1.2-4.9) X10*3/uL [place] # (Auto) 0.6 (0.1-1.2) X10*3/uL Eos # (Auto) 0.3 (0.0-0.4) X10*3/uL Baso # (Auto) 0.0 (0.0-0.2) X10*3/uL Abs Immat Gran (auto) 0.01 (0.00-0.03) X10*3/uL Absolute Neuts (auto) 5.5 (2.0-8.3) x10*3/uL Absolute Nucleated RBC 0.000 (0.0-0.012) X10*3/uL Nucleated RBC % (auto) 0.0 (0.0-0.2) /100WBC ESR 28 H (0-15) MM/HR Sodium 137 (135-145) mmol/L Potassium 3.9 (3.3-5.1) mmol/L Chloride 104 (96-108) mmol/L Carbon Dioxide 25 (22-29) mmol/L Anion Gap 12 (12-20) BUN 12 (9-16) mg/dL Creatinine 0.94 (0.5-1.4) mg/dL Estim Creat Clear Calc 148.1 Estimated GFR > 60 Random Glucose 161 H (60-115) mg/dL Calcium 8.4 D (8.4-10.2) mg/dL C-Reactive Protein 2.92 H (< or = 0.50) mg/dL Independent Interpretation I performed an independent interpretation of an: Plain X-Ray Interpretation: My interpretation is in agreement with the radiologist's impression of these imaging studies. - EXAMINATION: XR TIBIA AND FIBULA, RIGHT CLINICAL INFORMATION: Wound COMPARISON: None available. TECHNIQUE: AP and lateral views of the right tibia and fibula were obtained. FINDINGS: Alignment at the knee and ankle appears anatomic on these views. No acute fracture is seen. Subcutaneous edema noted throughout the lower leg. Posterior calcaneal spur is present. XR/XR tibia fibula RT 2V IMPRESSION: Subcutaneous edema throughout the lower leg. No acute osseous findings. Dictated By: Ap Cano MD Signed By: Electronically signed by Ap Cano MD 10/31/23 2308 - EXAMINATION: XR TIBIA AND FIBULA, LEFT CLINICAL INFORMATION: Wound COMPARISON: None available. TECHNIQUE: AP and lateral views of the left tibia and fibula were obtained. FINDINGS: Alignment at the knee and ankle appears anatomic on these views. No acute fracture is seen. Subcutaneous edema is present throughout the leg, most prominently at the ankle. Posterior calcaneal spur is noted. XR/XR tibia fibula LT 2V IMPRESSION: Subcutaneous edema throughout the leg, most prominently at the ankle. No acute osseous findings. Dictated By: Ap Cano MD Signed By: Electronically signed by Ap Cano MD 10/31/23 6166 Radiology Impression Discussion of test interpretation with radiology: I have reviewed the radiologist's reading. Prescription Management I considered prescription management with: Antibiotic (patient prescribed an antibiotic for cellulitis) Chronic Conditions Patient?s care impacted by: Hypertension Discharge Plan Discharge Clinical Impression: Cellulitis, Chronic venous stasis dermatitis, Hypertension Patient Disposition: Home, Self-Care Instructions: Cellulitis (DC), Hypertension (ED), Venous Insufficiency (DC) Additional Instructions: Take your medication as prescribed. Follow up with your primary care provider and the wound center. Return to the emergency department immediately if your symptoms worsen or if you develop any dizziness, shortness of breath, difficulty breathing, chest pain, blurry vision, loss of vision, nausea, vomiting, abdominal pain, fever, chills, back pain, or any other complaints. Prescriptions: New cephalexin 500 mg capsule 500 mg PO Q6H 10 Days Qty: 40 0RF doxycycline hyclate 100 mg tablet 100 mg PO BID 10 Days Qty: 20 0RF amlodipine 10 mg tablet 10 mg PO DAILY Qty: 30 0RF No Action ammonium lactate 12 % Lotion 1 appl topical BID Qty: 400 2RF Protocol: Apply to: Apply to: Lower extremities bilaterally prednisone 20 mg tablet 40 mg PO DAILY Qty: 8 0RF albuterol sulfate 90 mcg/actuation HFA aerosol inhaler 2 puff inhalation Q6H PRN (Reason: shortness of breath or wheezing) Qty: 6.7 0RF prednisone 20 mg tablet 40 mg PO DAILY Qty: 20 0RF cefuroxime axetil 500 mg tablet 500 mg PO BID Qty: 20 0RF amlodipine 10 mg tablet 10 mg PO DAILY Qty: 30 0RF Referrals: [facility] [place] [Provider Group] (Call to establish and follow up with a primary care provider. If you already have a primary care provider, please follow up with them.) [facility] [place] [facility] [Provider Group] [facility] [place] [facility] [Provider Group] [facility] [place] [facility] [Provider Group] (Call to establish and follow up with the wound center.) Interventions: ED Discharge Assessment Last Done: 10/31/23 22:48 Discharge Date/Time: 10/31/23 22:58 Print Language: Portuguese
[2023-10-31 21:51] LABS: MANUAL DIFF FLAG NO
[2023-10-31 21:57] LABS: Basophils Percent Auto 0.4 % (0-2); Eosinophils Absolute Auto 0.3 X10*3/uL (0.0-0.4); Eosinophils Percent Auto 3.6 % (0-4); Hematocrit 37.3 % (42.0-52.0); Hemoglobin 12.1 g/dl (14.0-18.0); Imm Gran Abs Auto 0.01 X10*3/uL (0.00-0.03); Imm Gran Pct Auto 0.1 % (0.0-0.4); Lymphocytes Percent Auto 23.5 % (20-40); Mean Corpuscular HGB Conc 32.4 g/dl (31.0-36.0); Mean Corpuscular Hemoglobin 26.9 pg (27.0-33.0); Mean Corpuscular Volume 82.9 fL (80.0-98.0); Mean Platelet Volume 9.9 fL (9.4-12.4); Monocytes Absolute Auto 0.6 X10*3/uL (0.1-1.2); Monocytes Percent Auto 6.7 % (2-11); Neutrophils Absolute Auto 5.5 x10*3/uL (2.0-8.3); Neutrophils Percent Auto 65.7 % (45-73); Platelet Count 246 X10*3/uL (160-400); Red Cell Distribution Width 14.6 % (11.0-16.0); White Blood Count 8.3 X10*3/uL (4.8-10.8)
[2023-10-31 22:00] VITALS: BP 164/85; PULSE 79; RESP 17; TEMP 36.8; O2SAT 95
[2023-10-31 22:14] LABS: Anion Gap 12 (12-20); Blood Urea Nitrogen 12 mg/dL (9-16); C Reactive Protein 2.92 mg/dL (< or = 0.50); Calcium 8.4 mg/dL (8.4-10.2); Carbon Dioxide 25 mmol/L (22-29); Chloride 104 mmol/L (96-108); Creatinine Clr Calc Pharmacy 148.1; Estimated Glomerular Filt Rate > 60; Glucose Random 161 mg/dL (60-115); Potassium 3.9 mmol/L (3.3-5.1); Sodium 137 mmol/L (135-145)
[2023-10-31] MEDS: cephALEXin 500 MG CAPSULE PO (22:44)
[2023-10-31] MEDS: Doxycycline Monohydrate 100 MG CAPSULE PO (22:44)
[2023-10-31 22:47] LABS: Erythrocyte Sedimentation Rate 28 MM/HR (0-15)
[2023-10-31 22:48] VITALS: BP 164/85; PULSE 79; RESP 17; TEMP 36.8; O2SAT 95
--- NOTE | 2023-10-31 22:55 | MHC.EDTECH ---
ABD pads and Lopez Wraps applied to weeping sections of the right and left lower extremeities.
== END 2023-10-31 22:58 | disposition home or self-care (01) ==
PROVIDERS: Emergency Provider Emergency Medicine Emergency Medical Services
DX: L03.115 Cellulitis of right lower limb (principal); L03.116 Cellulitis of left lower limb; I87.2 Venous insufficiency (chronic) (peripheral); I10 Essential (primary) hypertension; Z79.899 Other long term (current) drug therapy
CPT/HCPCS: 36415; 73590; 80048; 85025; 85652; 86140; 99283; 99284

== ENCOUNTER 2024-01-31 12:52 | Inpatient (IN) | payer MEDICAID, SELFPAY ==
--- NOTE | ~2024-01-31 | US_ITS ---
EXAMINATION: US TRIPLEX LOWER EXTREMITY, BILATERAL CLINICAL INFORMATION: Edema and pain. COMPARISON: Left lower extremity ultrasound 07/21/2023. TECHNIQUE: Color-flow triplex imaging with spectral analysis and compression Doppler were performed on the bilateral lower extremities. FINDINGS: Respiratory variation, normal compression and augmented flow are noted throughout the bilateral lower extremities. The visualized common femoral vein, superficial femoral vein, profunda femoral vein and popliteal vein show no evidence of venous thrombosis bilaterally. The left posterior tibialis veins are patent. The right calf and left peroneal veins were not visualized due to overlying swelling. There is no Lino's cyst. Bilateral soft tissue swelling, right greater than left. Bilateral inguinal lymphadenopathy, right greater than left. US/US venous duplex LE BI IMPRESSION: 1. No evidence of deep venous thrombosis involving the bilateral lower extremities with the caveat of limited evaluation of the calf veins as above. 2. Bilateral soft tissue swelling. 3. Bilateral inguinal lymphadenopathy, possibly reactive. Recommend follow-up ultrasound as clinically warranted. Electronically signed by: Michelle Vanegas MD 01/31/2024 08:00 PM [facility]
--- NOTE | ~2024-01-31 | XR_ITS ---
EXAMINATION: XR tibia fibula LT 2V (accession [id number]), XR tibia fibula RT 2V (accession [id number]) CLINICAL INFORMATION: leg swelling COMPARISON: 10/31/2023 TECHNIQUE: Two views of the bilateral lower extremities FINDINGS: * No acute fracture or dislocation. * Joint spaces are maintained without significant degenerative change. * Diffuse bilateral subcutaneous edema again seen. XR/XR tibia fibula LT 2V IMPRESSION: No acute fracture or dislocation. Diffuse bilateral subcutaneous edema again seen. Electronically signed by: eDlma Worrell MD 01/31/2024 07:26 PM [facility]
--- NOTE | ~2024-01-31 | XR_ITS ---
EXAMINATION: XR tibia fibula LT 2V (accession [id number]), XR tibia fibula RT 2V (accession [id number]) CLINICAL INFORMATION: leg swelling COMPARISON: 10/31/2023 TECHNIQUE: Two views of the bilateral lower extremities FINDINGS: * No acute fracture or dislocation. * Joint spaces are maintained without significant degenerative change. * Diffuse bilateral subcutaneous edema again seen. XR/XR tibia fibula RT 2V IMPRESSION: No acute fracture or dislocation. Diffuse bilateral subcutaneous edema again seen. Electronically signed by: Delma Worrell MD 01/31/2024 07:26 PM [facility]
[2024-01-31 13:26] VITALS: BP 171/90; PULSE 75; RESP 18; TEMP 36.6; O2SAT 99; BMI 50.4
[2024-01-31 14:36] LABS: MANUAL DIFF FLAG NO
[2024-01-31 14:38] LABS: Basophils Percent Auto 0.4 % (0-2); Eosinophils Absolute Auto 0.4 X10*3/uL (0.0-0.4); Eosinophils Percent Auto 4.3 % (0-4); Hematocrit 38.8 % (42.0-52.0); Hemoglobin 12.6 g/dl (14.0-18.0); Imm Gran Abs Auto 0.02 X10*3/uL (0.00-0.03); Imm Gran Pct Auto 0.2 % (0.0-0.4); Lymphocytes Absolute Auto 1.7 X10*3/uL (1.2-4.9); Lymphocytes Percent Auto 19.9 % (20-40); Mean Corpuscular HGB Conc 32.5 g/dl (31.0-36.0); Mean Corpuscular Hemoglobin 27.6 pg (27.0-33.0); Mean Corpuscular Volume 85.1 fL (80.0-98.0); Mean Platelet Volume 9.5 fL (9.4-12.4); Monocytes Absolute Auto 0.5 X10*3/uL (0.1-1.2); Monocytes Percent Auto 5.6 % (2-11); Neutrophils Percent Auto 69.6 % (45-73); Platelet Count 281 X10*3/uL (160-400); Red Blood Count 4.56 X10*6/uL (4.60-5.80); Red Cell Distribution Width 15.4 % (11.0-16.0); White Blood Count 8.6 X10*3/uL (4.8-10.8)
[2024-01-31 14:46] LABS: IDNOW Serial# 08D9AD1C; Strep A Nucleic Acid Negative (Negative)
[2024-01-31 14:50] LABS: COVID-19 Test Negative (Negative); IDNOW Serial# 152EDE1D
[2024-01-31 15:02] LABS: Anion Gap 14 (12-20); Blood Urea Nitrogen 9 mg/dL (9-16); Calcium 9.1 mg/dL (8.4-10.2); Carbon Dioxide 26 mmol/L (22-29); Chloride 104 mmol/L (96-108); Creatinine Clr Calc Pharmacy 167.1; Estimated Glomerular Filt Rate > 60; Glucose Random 150 mg/dL (60-115); Sodium 140 mmol/L (135-145)
[2024-01-31 18:32] LABS: C Reactive Protein 3.29 mg/dL (< or = 0.50)
[2024-01-31 19:01] LABS: Erythrocyte Sedimentation Rate 38 MM/HR (0-15)
[2024-01-31 20:09] VITALS: BP 110/54; PULSE 72; RESP 16; TEMP 36.7; O2SAT 98
--- NOTE | 2024-01-31 20:16 | MHC.EDTECH ---
at this time this tech changed ove pt into hospital gown and place him on quality assurance monitor chassis
[2024-01-31 22:15] VITALS: BP 112/51; PULSE 72; RESP 17; TEMP 36.7; O2SAT 96
--- NOTE | 2024-01-31 22:30 | ED.GENADULT ---
HPI - General Adult General Chief complaint: General Medical Stated complaint: diff breathing multiple issues Time Seen by Provider: 01/31/24 20:29 Source: patient Limitations: no limitations History of Present Illness ED Provider: Corin Angela PA-C HPI narrative: 54-year-old male with a history of hypertension, morbid obesity, psoriasis, asthma, recurrent lower extremity cellulitis, presents with concerns for recurrent lower extremity cellulitis. Patient states over the past month, his lower extremities have become increasingly painful, red, warm, he has developed new ulcerations both anteriorly and posteriorly. In addition, patient also states he has had nasal and chest congestion with wheezing over the past 2-3 days. No sick contacts with same symptoms. Denies fever or purulent drainage from any of the sites. Patient has not followed by wound care and currently does not have primary care. Related Data Previous Rx's ?Medication ?Instructions ?Recorded albuterol sulfate 90 mcg/actuation 2 puff inhalation Q6H PRN 06/08/23 aerosol inhaler shortness of breath or wheezing #6.7 grams ammonium lactate 12 % lotion 1 appl topical BID #400 grams 06/08/23 prednisone 20 mg tablet 40 mg (2 x 20 mg) PO DAILY #8 tabs 06/08/23 amlodipine 10 mg tablet 10 mg PO DAILY #30 tabs 07/21/23 cefuroxime axetil 500 mg tablet 500 mg PO BID #20 tabs 07/21/23 prednisone 20 mg tablet 40 mg (2 x 20 mg) PO DAILY #20 tabs 07/21/23 amlodipine 10 mg tablet 10 mg PO DAILY #30 tabs 10/31/23 cephalexin 500 mg capsule 500 mg PO Q6H 10 days #40 caps 10/31/23 doxycycline hyclate 100 mg tablet 100 mg PO BID 10 days #20 tabs 10/31/23 Allergies Allergy/AdvReac Type Severity Reaction Status Date / Time No Known Allergies Allergy Verified 01/31/24 13:30 Review of Systems Review of Systems: Yes all other systems are reviewed and are negative Constitutional: Constitutional: Denies fatigue and Denies fever(s) ENT: Reports nasal congestion and Denies sore throat Cardiovascular: Cardiovascular: Denies chest pain and Denies dyspnea Respiratory: Respiratory: Reports chest congestion, Reports cough, Denies dyspnea and Reports wheezing Musculoskeletal: Musculoskeletal: Denies arthralgias and Denies joint swelling Integumentary/Breasts: Skin/Breast: Reports erythema, Reports skin pain, Reports skin swelling and Reports skin ulcer Endocrine: Endocrine: Denies fatigue Allergic/Immunologic: Allergic/Immunologic: Reports wheezing PMFSH Past Medical History Attestation statement: The following information was validated with the patient. Medical History Anemia Asthma Morbid obesity Psoriasis Social History Social History Household Members: Children Household Members Other:: Son and daughter in law Housing: House Do you presently have visiting nurse or other home services: No Alcohol intake: former Patient Tobacco Use Status: Never used Tobacco Smoked in Last 30 Days: No Use of substances other than those prescribed or required for medical reasons: No Advance Directives: No Advance Directives Information Provided: Yes service: No Physical Exam ED Vital Signs: Vital Signs - 24 hr 01/31/24 13:26 01/31/24 20:09 01/31/24 22:15 Temperature 98 F 98.1 F 98.1 F Pulse Rate 75 72 72 Respiratory Rate 18 16 17 Blood Pressure 171/90 H 110/54 L 112/51 L Pulse Oximetry 99 98 96 Oxygen Delivery Method Room Air Room Air Room Air BMI result Body Mass Index 50.4 Const Other: Awake, appears older than stated age Resp Other: Nonlabored respiration, lungs clear to auscultation Cardio Other: Bilateral pitting edema Skin Other: Warm dry no rash Extrem Other: The skin over bilateral lower extremities is thickened, hyperpigmented, dry and scaley consistent with likely venous insufficiency. There is overlying erythema with ulcerations, some are plaques consistent with his psoriasis. The lesions are diffuse and are noted anteriorly and posteriorly over both lower extremities. Serous fluid draining from some of the regions. We will distal lower extremities are warm to touch Psych Other: Kvng coop Medical Decision Making Medical Decision Making MDM Narrative: 54-year-old male with a history of hypertension, morbid obesity, psoriasis, asthma, recurrent lower extremity cellulitis, presents with concerns for recurrent lower extremity cellulitis. Patient states over the past month, his lower extremities have become increasingly painful, red, warm, he has developed new ulcerations both anteriorly and posteriorly. In addition, patient also states he has had nasal and chest congestion with wheezing over the past 2-3 days. No sick contacts with same symptoms. Denies fever or purulent drainage from any of the sites. Patient has not followed by wound care and currently does not have primary care. Problem: Morbid obesity, psoriasis, asthma, recurrent cellulitis History per patient I have considered the following differential diagnoses: Cellulitis, purulent cellulitis, psoriasis exacerbation, pneumonia, bronchitis, asthma exacerbation, viral syndrome, new onset heart failure , DVT Plan: In regard to the patient's respiratory complaint, this sounds viral. Screening labs including viral panel and chest x-ray were obtained. He is not actively wheezing to suggest asthma exacerbation despite his report. The cough is dry nonproductive, he is afebrile, likely not pneumonia. Also thought about new onset heart failure, he is morbidly obese and has a history of hypertension. However, he is not overtly hypertensive, he is not hypoxic, in his lungs are clear. A BNP was added. In regard to the lower extremities, his symptoms are consistent with nonpurulent cellulitis. Given the extent of the cellulitis, he warrants admission. Inflammatory markers were ordered as well, they are both elevated. Adding on blood cultures, lactic acid and starting cefazolin 2 g. DVT studies were ordered and are negative, he was noted to have bilateral inguinal lymphadenopathy which would be consistent with a cellulitis he has down stream I have independently reviewed the following tests: Labs: No leukocytosis, not anemic, no electrolyte abnormality, both CRP and ESR elevated, viral panel negative Chest x-ray: Bilateral Doppler studies: US/US venous duplex LE IMPRESSION: 1. No evidence of deep venous thrombosis involving the bilateral lower extremities with the caveat of limited evaluation of the calf veins as above. 2. Bilateral soft tissue swelling. 3. Bilateral inguinal lymphadenopathy, possibly reactive. Recommend follow-up ultrasound as clinically warranted. Electronically signed by: Michelle Vanegas MD 01/31/2024 08:00 PM [facility] Lab Data 01/31/24 14:31 01/31/24 14:31 Labs: Lab Results 01/31/24 01/31/24 Range/Units 14:31 23:01 WBC 8.6 (4.8-10.8) X10*3/uL RBC 4.56 L (4.60-5.80) X10*6/uL Hgb 12.6 L (14.0-18.0) g/dl Hct 38.8 L (42.0-52.0) % MCV 85.1 (80.0-98.0) fL MCH 27.6 (27.0-33.0) pg MCHC 32.5 (31.0-36.0) g/dl RDW 15.4 (11.0-16.0) % Plt Count 281 (160-400) X10*3/uL MPV 9.5 (9.4-12.4) fL Immature Gran % (Auto) 0.2 (0.0-0.4) % Neut % (Auto) 69.6 (45-73) % Lymph % (Auto) 19.9 L (20-40) % [place] % (Auto) 5.6 (2-11) % Eos % (Auto) 4.3 H (0-4) % Baso % (Auto) 0.4 (0-2) % Lymph # (Auto) 1.7 (1.2-4.9) X10*3/uL [place] # (Auto) 0.5 (0.1-1.2) X10*3/uL Eos # (Auto) 0.4 (0.0-0.4) X10*3/uL Baso # (Auto) 0.0 (0.0-0.2) X10*3/uL Abs Immat Gran (auto) 0.02 (0.00-0.03) X10*3/uL Absolute Neuts (auto) 6.0 (2.0-8.3) x10*3/uL Absolute Nucleated RBC 0.000 (0.0-0.012) X10*3/uL Nucleated RBC % (auto) 0.0 (0.0-0.2) /100WBC ESR 38 H (0-15) MM/HR Sodium 140 (135-145) mmol/L Potassium 4.0 (3.3-5.1) mmol/L Chloride 104 (96-108) mmol/L Carbon Dioxide 26 (22-29) mmol/L Anion Gap 14 (12-20) BUN 9 (9-16) mg/dL Creatinine 0.81 (0.5-1.4) mg/dL Estim Creat Clear Calc 167.1 Estimated GFR > 60 Random Glucose 150 H (60-115) mg/dL Lactic Acid 0.8 (0.5-2.0) mmol/L Calcium 9.1 D (8.4-10.2) mg/dL C-Reactive Protein 3.29 H (< or = 0.50) mg/dL COVID-19 (FOREIGN) Negative (Negative) COVID-19 Clin Com See Note S. pyogenes GrpA ELIANE Negative (Negative) Discharge Plan Discharge Clinical Impression: Bilateral cellulitis of lower leg Patient Disposition: Admitted As Inpatient Print Language: Syriac
[2024-01-31 23:25] LABS: Lactic Acid 0.8 mmol/L (0.5-2.0)
[2024-01-31] MEDS: ceFAZolin Sodium/Dextrose,Iso 2 GM/50 ML PIGGYBACK IV (23:38)
[2024-02-01 00:25] VITALS: BP 129/55; PULSE 74; RESP 22; TEMP 36.6; O2SAT 96
--- NOTE | 2024-02-01 00:51 | P.HPHOSP_ITS ---
History of Present Illness Date of Service: 02/01/24 Attending physician on admission: Annamarie Caro Chief Complaint: Left lower extremity redness Joseph Bailey is a 54 years old man with past medical history significant for leg stasis dermatitis, morbid obesity and essential hypertension presents to the emergency department complaining of worsening redness, swelling and pain to the right lower extremity over the last several days associated with fluid weeping.He also complained of cough and sore throat. Did not report fever or chills. Did not report any acute abdominal pain, nausea, vomiting or diarrhea. In the ED, he was found to have stable vital signs. Blood workup showed no leukocytosis. There is no lactic acidosis. Hemoglobin is around baseline. Platelets are normal. There are no electrolyte imbalances. Renal function is normal. ED tx: Ancef 2 g IV Review of Systems 2 Review of Systems: All 12 systems were reviewed and normal except as noted in HPI. [facility] Medical History (Updated 02/01/24 @ 01:45 by Annamarie Caro MD) Essential hypertension Stasis dermatitis of both legs Anemia Asthma Morbid obesity Psoriasis Social History Household Members: Children Household Members Other:: Son and daughter in law Housing: House Do you presently have visiting nurse or other home services: No Alcohol intake: former Patient Tobacco Use Status: Never used Tobacco service: No Meds Allergies Allergy/AdvReac Type Severity Reaction Status Date / Time No Known Allergies Allergy Verified 01/31/24 13:30 Active Medications: Current Medications Acetaminophen (Acetaminophen 325 Mg Tablet) 975 mg PO Q6H PRN PRN Reason: Pain, Mild (Pain Scale 1-3), fever or headache Enoxaparin Sodium (Enoxaparin Sodium 40 Mg/0.4 Ml Syringe) 40 mg SUBCUT Q24H BUTCH Piperacillin Sod/Tazobactam (Sod 3.375 gm/ Sodium Chloride) 50 mls @ 100 mls/hr IV Q6H BUTCH Melatonin (Melatonin 3 Mg Tablet) 6 mg PO BEDTIME PRN PRN Reason: Insomnia Oxycodone HCl (Oxycodone Hcl Immed Release 5 Mg Tablet) 5 mg PO Q6H PRN PRN Reason: Pain, Severe (Pain Scale 7-10) Sodium Chloride (0.9 % Sodium Chloride Flush 3 Ml Syringe) 3 ml IVFLUSH QSHIFT [facility] Physical Exam 2 Vital Signs and Narrative: Vital Signs: Last Vital Signs Temp 97.8 F 02/01/24 00:25 Pulse 74 02/01/24 00:25 Resp 22 H 02/01/24 00:25 BP 129/55 L 02/01/24 00:25 Pulse Ox 96 02/01/24 00:25 O2 Del Method Room Air 02/01/24 00:25 BMI result Body Mass Index 50.4 Constitutional - Awake and Alert, No apparent distress. Obese. No acute distress. Afebrile. HEENT - PER, EOMI Heart - S1S2, RRR, No murmurs. Lungs - Normal lung expansion, Normal respiratory effort, No respiratory distress, CTA bilaterally Abdomen - NT / ND; +BS; No rebound or guarding Extremities - Bilateral edema to the lower extremity, erythema > right leg. Musculoskeletal - Normal inspection, normal ROM Skin - Warm/Dry. No pallor. No jaundice. Neurological - Alert & oriented x3, CN II-XII in tact, 5/5 strength BUE and BLE Psychological - Appropriate affect Results Labs 01/31/24 14:31 01/31/24 14:31 Labs: Laboratory Results - last 24 hr 01/31/24 01/31/24 14:31 23:01 MCV 85.1 MCH 27.6 MCHC 32.5 RDW 15.4 Plt Count 281 MPV 9.5 Immature Gran % (Auto) 0.2 Neut % (Auto) 69.6 Lymph % (Auto) 19.9 L [place] % (Auto) 5.6 Eos % (Auto) 4.3 H Baso % (Auto) 0.4 Lymph # (Auto) 1.7 [place] # (Auto) 0.5 Eos # (Auto) 0.4 Baso # (Auto) 0.0 Abs Immat Gran (auto) 0.02 Absolute Neuts (auto) 6.0 Absolute Nucleated RBC 0.000 Nucleated RBC % (auto) 0.0 ESR 38 H Anion Gap 14 Estim Creat Clear Calc 167.1 Estimated GFR > 60 Random Glucose 150 H Lactic Acid 0.8 Calcium 9.1 D C-Reactive Protein 3.29 H COVID-19 (FOREIGN) Negative COVID-19 Clin Com See Note S. pyogenes GrpA ELIANE Negative Imaging Radiologist's Impressions: Impressions Tibia/Fibula X-Ray 11/04/24 18:05 IMPRESSION: No acute fracture or dislocation. Diffuse bilateral subcutaneous edema again seen. Electronically signed by: Delma Worrell MD 01/31/2024 07:26 PM EST RP Tibia/Fibula X-Ray 01/31/24 18:05 IMPRESSION: No acute fracture or dislocation. Diffuse bilateral subcutaneous edema again seen. Electronically signed by: Delma Worrell MD 01/31/2024 07:26 PM EST RP Venous Duplex 01/31/24 18:45 IMPRESSION: 1. No evidence of deep venous thrombosis involving the bilateral lower extremities with the caveat of limited evaluation of the calf veins as above. 2. Bilateral soft tissue swelling. 3. Bilateral inguinal lymphadenopathy, possibly reactive. Recommend follow-up ultrasound as clinically warranted. Electronically signed by: Michelle Vanegas MD 01/31/2024 08:00 PM EST RP Assessment and Plan (1) Cellulitis of right lower extremity: Status: Acute Plan Joseph Bailey is a 54 y/o man admitted with: * Right lower extremity stasis dermatitis + venous insufficiency with superimposed acute cellulitis. Admit to hospitalist service. Start empiric IV antibiotic therapy with Zosyn and vancomycin. Elevate extremities. * Essential hypertension. Continue amlodipine. * Morbid obesity, BMI 50.4 kg/m2. Weight loss encouraged. * Chronic anemia. Continue to monitor hemoglobin. DVT prophylaxis: Lovenox Code status: Full Patient will need hospitalization for at least 2 midnights for right lower extremity cellulitis in the setting of multiple underlying comorbidities: Venous insufficiency, stasis dermatitis and morbid obesity, patient will need IV antibiotic therapy. Quality Stroke Does the patient have a stroke diagnosis?: No VTE Prior VTE?: No VTE Risk Level:: Medical - moderate - high VTE Device Contraindication: Treatment Not Indicated VTE Drug Contraindication: N/A - Med Ordered
[2024-02-01] MEDS: Piperacillin Sodium/Tazobactam 3.375 GM in 0.9 % Sodium Chloride 50 ML IV ×4 (01:20→19:53)
[2024-02-01] MEDS: Throat Lozenge, Medicated LOZENGE 1 LOZENGE MUCOUS MEM (01:21)
[2024-02-01] MEDS: Acetaminophen 325 MG TABLET 975 MG PO ×3 (01:23→16:51)
[2024-02-01] MEDS: vancomycin/NS 2,000 MG/500 ML PLAST..BAG 250 MG IV (01:45)
[2024-02-01 03:12] VITALS: BP 138/62; PULSE 76; RESP 18; TEMP 36.4; O2SAT 94
[2024-02-01 03:33] VITALS: BMI 51.4
[2024-02-01 07:32] LABS: MANUAL DIFF FLAG NO
[2024-02-01 07:38] LABS: Basophils Percent Auto 0.4 % (0-2); Eosinophils Absolute Auto 0.4 X10*3/uL (0.0-0.4); Eosinophils Percent Auto 3.9 % (0-4); Hematocrit 37.8 % (42.0-52.0); Imm Gran Abs Auto 0.03 X10*3/uL (0.00-0.03); Imm Gran Pct Auto 0.3 % (0.0-0.4); Lymphocytes Absolute Auto 1.9 X10*3/uL (1.2-4.9); Lymphocytes Percent Auto 19.4 % (20-40); Mean Corpuscular HGB Conc 31.7 g/dl (31.0-36.0); Mean Corpuscular Hemoglobin 26.8 pg (27.0-33.0); Mean Corpuscular Volume 84.6 fL (80.0-98.0); Mean Platelet Volume 9.9 fL (9.4-12.4); Monocytes Absolute Auto 0.6 X10*3/uL (0.1-1.2); Monocytes Percent Auto 6.2 % (2-11); Neutrophils Absolute Auto 6.9 x10*3/uL (2.0-8.3); Neutrophils Percent Auto 69.8 % (45-73); Platelet Count 298 X10*3/uL (160-400); Red Blood Count 4.47 X10*6/uL (4.60-5.80); Red Cell Distribution Width 15.3 % (11.0-16.0); White Blood Count 9.9 X10*3/uL (4.8-10.8)
[2024-02-01] MEDS: Enoxaparin Sodium 40 MG/0.4 ML SYRINGE SUBCUT (07:42)
[2024-02-01] MEDS: 0.9 % Sodium Chloride Flush 3 ML SYRINGE IVFLUSH ×2 (07:44→17:56)
[2024-02-01 07:53] LABS: Anion Gap 14 (12-20); Blood Urea Nitrogen 8 mg/dL (9-16); Carbon Dioxide 26 mmol/L (22-29); Chloride 104 mmol/L (96-108); Creatinine Clr Calc Pharmacy 171.2; Estimated Glomerular Filt Rate > 60; Glucose Random 116 mg/dL (60-115); Potassium 3.8 mmol/L (3.3-5.1); Sodium 140 mmol/L (135-145)
[2024-02-01 07:56] LABS: Estimated Average Glucose 117 mg/dL; Hemoglobin A1C 124.3516 umol/L; Hemoglobin A1c % 5.7 % (<6.0); Total Hemoglobin (HGBA1C) 3238.1297 umol/L
[2024-02-01 08:00] VITALS: BP 148/91; PULSE 72; RESP 16; TEMP 37.1; O2SAT 93
--- NOTE | 2024-02-01 08:46 | PHA.MEDREC ---
Addendum entered by Shabnam Rendon RPh 02/01/24 09:01: reviewed by [facility]. Original Note: Pharmacy Consult ? Medication Reconciliation Pharmacy has completed the medication reconciliation. Patient confirmed and stated he is not taking anything prescription or OTC medications right now.
--- NOTE | 2024-02-01 08:48 | PHA.PROG ---
Admission Date/Time: February 01, 2024 00:44 Indication: CELLULITUS Weight in k.3 kg Serum Creatinine - Last 168 Hours 01/31/24 02/01/24 14:31 06:31 Creatinine 0.81 0.80 Estimated CrCl and GFR - Last 168 Hours 01/31/24 02/01/24 14:31 06:31 Estim Creat Clear Calc 167.1 171.2 Estimated GFR > 60 > 60 Vancomycin Loading Dose: 2000MG Current Vancomycin Dosing Regimen: 1000 Q 8 Vancomycin Monitoring using AUC goal of 400 - 600 range with trough as surrogate marker: 456 Date and Time for next Vancomycin Level to be drawn: 12/31 @ 1600 Pharmacist Comments on Vancomycin Plan: Vancomycin dosing will take advantage of [employer] as a clinical decision support tool that uses Bayesian modeling to calculate individual patient's pharmacokinetic parameters and forecast the patient's drug concentration time course with the target goal AUC 24 range of 400 - 600 mg/L/hr.
--- NOTE | 2024-02-01 09:22 | PM.EVENT ---
Event Note Date of Service: 02/01/24 Event Note: admitted this morning. Pt seen/examined, vitals meds and imaging reviewed 54 y/o man with HTN, chronic stasis dermatitis, morbid obesity here with Right lower extremity stasis dermatitis + venous insufficiency with superimposed acute cellulitis. - continue Vanco + Zosyn -follow cultures Essential hypertension -Norvasc Morbid obesity, BMI 50.4 kg/m2. Weight loss advised. Chronic anemia. Continue to monitor hemoglobin. DVT prophylaxis: lovenox Full code Time Spent With Patient Time: Total time managing care of this patient today ____ minutes.
[2024-02-01] MEDS: amLODIPine Besylate 5 MG TABLET PO (09:37)
[2024-02-01] MEDS: vancomycin HCL 1,000 MG in 0.9 % Sodium Chloride 250 ML 270 MG IV ×2 (09:40→18:32)
[2024-02-01 16:00] VITALS: BP 149/83; PULSE 77; RESP 16; TEMP 36.7; O2SAT 96
--- NOTE | 2024-02-01 16:29 | MHC.CM.PN ---
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 No pcp no INSURANCE. [facility]. THE [facility] PCP PROVIDER BROCHURE HAS BEEN PROVIDED. [facility]IVATE TRANSPORT
[2024-02-01 17:45] LABS: Vancomycin Random 10.3 mcg/mL (15-20)
[2024-02-01 19:41] VITALS: BP 148/70; PULSE 78; RESP 18; TEMP 36.7; O2SAT 95
[2024-02-02] MEDS: Piperacillin Sodium/Tazobactam 3.375 GM in 0.9 % Sodium Chloride 50 ML IV ×4 (00:41→19:28)
[2024-02-02] MEDS: 0.9 % Sodium Chloride Flush 3 ML SYRINGE IVFLUSH ×3 (00:41→17:40)
[2024-02-02] MEDS: vancomycin HCL 1,000 MG in 0.9 % Sodium Chloride 250 ML 270 MG IV ×3 (02:09→17:57)
[2024-02-02] MEDS: Acetaminophen 325 MG TABLET 975 MG PO (02:16)
[2024-02-02 03:09] VITALS: BP 127/56; PULSE 73; RESP 18; TEMP 36.8; O2SAT 93
[2024-02-02 07:14] LABS: Anion Gap 12 (12-20); Blood Urea Nitrogen 8 mg/dL (9-16); Carbon Dioxide 28 mmol/L (22-29); Chloride 105 mmol/L (96-108); Creatinine Clr Calc Pharmacy 182.6; Estimated Glomerular Filt Rate > 60; Glucose Random 109 mg/dL (60-115); Sodium 141 mmol/L (135-145)
[2024-02-02 07:40] VITALS: BP 146/77; PULSE 70; RESP 18; TEMP 36.3; O2SAT 90
[2024-02-02] MEDS: Enoxaparin Sodium 40 MG/0.4 ML SYRINGE SUBCUT (07:58)
[2024-02-02] MEDS: amLODIPine Besylate 5 MG TABLET PO (07:58)
--- NOTE | 2024-02-02 10:59 | HO.PM.IMPN ---
Subjective Subjective Date of Service: 02/03/24 Interval History: f/u on cellulitis of the legs persitent redness and swelling Physical Exam Vital Signs: Vital Signs: Last Vital Signs Temp 97.3 F 02/02/24 07:40 Pulse 70 02/02/24 07:40 Resp 18 02/02/24 07:40 BP 146/77 H 02/02/24 07:40 Pulse Ox 90 L 02/02/24 07:40 O2 Del Method Room Air 02/02/24 07:40 BMI result Body Mass Index 51.4 Const: Other: General: AO X 3, no acute distress Resp: CTA bilateral CVS: S1,S2,RRR GI: +BS, NT, no distention Skin: No rash Neuro: motor grossly intact Psych: appropriate affect Objective Data Active Medications Acetaminophen (Acetaminophen 325 Mg Tablet) 975 mg PO Q6H PRN PRN Reason: Pain, Mild (Pain Scale 1-3), fever or headache Last Admin: 02/02/24 02:16 Dose: 975 mg Documented By: LETY Amlodipine Besylate (Amlodipine Besylate 5 Mg Tablet) 5 mg PO DAILY [facility]; Protocol Last Admin: 02/02/24 07:58 Dose: 5 mg Documented By: ATTILA Benzocaine (Throat Lozenge, Medicated Lozenge) 1 lozenge MUCOUS MEM Q2H PRN PRN Reason: Sore Throat Last Admin: 02/01/24 01:21 Dose: 1 lozenge Documented By: MER Enoxaparin Sodium (Enoxaparin Sodium 40 Mg/0.4 Ml Syringe) 40 mg SUBCUT Q24H [facility] Last Admin: 02/02/24 07:58 Dose: 40 mg Documented By: ATTILA Guaifenesin/Dextromethorphan (Guaifenesin Dm 200/20/10 Ml 10 Ml Syrup) 10 ml PO Q4H PRN PRN Reason: Cough Piperacillin Sod/Tazobactam (Sod 3.375 gm/ Sodium Chloride) 50 mls @ 100 mls/hr IV Q6H [facility] Last Infusion: 02/02/24 07:11 Dose: Infused Documented By: ATTILA Vancomycin HCl 1,000 mg/ (Sodium Chloride) 270 mls @ 270 mls/hr IV Q8H [facility] Last Admin: 02/02/24 09:51 Dose: 270 mls/hr Documented By: ATTILA Melatonin (Melatonin 3 Mg Tablet) 6 mg PO BEDTIME PRN PRN Reason: Insomnia Oxycodone HCl (Oxycodone Hcl Immed Release 5 Mg Tablet) 5 mg PO Q6H PRN PRN Reason: Pain, Severe (Pain Scale 7-10) Pharmacy Consult (Consult Rx Vancomycin Dosing) 1 each MISCELLANE DAILY PRN PRN Reason: Consult order Sodium Chloride (0.9 % Sodium Chloride Flush 3 Ml Syringe) [facility] Last Admin: 02/02/24 07:59 Dose: 3 ml Documented By: ATTILA Labs 02/01/24 06:31 02/03/24 05:28 Labs: Laboratory Results - last 24 hr 02/01/24 02/02/24 17:26 06:03 Anion Gap 12 Estim Creat Clear Calc 182.6 Estimated GFR > 60 Random Glucose 109 Calcium 9.0 Random Vancomycin 10.3 L Microbiology Microbiology Results: Microbiology 01/31/24 23:27 Blood Culture - Preliminary Blood - Venous No growth after 24 hours. 01/31/24 23:01 Blood Culture - Preliminary Blood - Venous No growth after 24 hours. Assessment and Plan (1) Bilateral cellulitis of lower leg: Status: Acute (2) Cellulitis of right lower extremity: Status: Acute Plan 54 y/o man with HTN, chronic stasis dermatitis, morbid obesity here with Right lower extremity stasis dermatitis + venous insufficiency with superimposed acute cellulitis. negative dvts - continue Vanco + Zosyn -follow cultures -id consult -wound consult -add topical steroid Essential hypertension -Norvasc Morbid obesity, BMI 50.4 kg/m2. Weight loss advised. Chronic anemia. Continue to monitor hemoglobin. DVT prophylaxis: lovenox Quality Stroke Does the patient have a stroke diagnosis?: No VTE Prior VTE?: No VTE Risk Level:: Medical - moderate - high VTE Device Contraindication: Treatment Not Indicated VTE Drug Contraindication: N/A - Med Ordered
[2024-02-02 15:09] VITALS: BP 137/74; PULSE 71; RESP 18; TEMP 36.4; O2SAT 94
--- NOTE | 2024-02-02 15:19 | HO.WOUND ---
Wound Consult: Initial 54yr old male admitted [place] [facility] [place] - See progress notes and H&P for detailed history.? Wound consult placed for Bilateral Lower Legs.? Patient agreeable to assessment and photo documentation.? Patient reports she works at [employer] and is standing for most of his shift. He reports she has worn compression on and off and reports he does not wear them regularly. He denies seeking treatment at a wound clinic and denies seeking treatment for lymphedema. He reports she has worn compression he bought over the counter. Unfortunately patient has not had insurance prior to this hospital stay and access to outpt care has been limited. This hospital stay the patient reports he now has insurance and will follow up with his PCP appointment scheduled for approximately 4 months from now. Unfortunately the patients suspected venous dermatitis will need outpt treatment and follow up - we discussed compression therapy and dermatology follow up for treatment of his psoriasis. Bilateral lower Legs Etiology: ??Psoriasis and Venous Dermatitis Wound Bed: scattered areas of partial thickness tissue loss with in psoriasis Drainage / Odor: clear serous fluid noted Edges: ? irregular Daisy wound: ? Venous dermatitis and swelling - No Induration, Fluctuance noted Pain: tenderness reported over open wounds Goals of Treatment: ? Lower Leg Elevation, topical cream and steroid application and compression when available Recommendations: 1. When applicable maintain blood glucose levels per Providers order. 2. Bilateral Lower Legs - Elevate lower legs off of surface of bed with use of pillows.? Cleanse with Mercedes [place], Pat dry.?Apply Topical steroid to lower legs per provider order. Apply vaseline to both legs, cover with ABD pad, gauze wrap and tape or Elastic netting.? Change Daily. Patient should follow up outpt with OT for Lymphedema and compression therapy.? [facility] [address] [place] [address] . Recommend follow up out patient Wound Clinic at [address] [place] [address] and to call for an appointment at time of discharge. [phone].? Recommend patient to consider Edema Wear outpt as not available inpatient.? These can be obtained from the following website. [email or web address]. Edema Wear Compression Stockings ? Recommend Size Medium Edema Wear compression garments should be applied first thing in the morning and may be removed at night when legs are elevated in bed.? Hand wash and hang dry.? Stockings should be worn from the base of the toes to just below the knee.? Fold over at end to prevent rolling.? They are disposable after about 2 weeks or regular use. Re-consult wound care Nurse for wound deterioration or wound changes.
[2024-02-02 16:18] LABS: Vancomycin Random 12.4 mcg/mL (15-20)
[2024-02-02 19:06] VITALS: BP 141/80; PULSE 82; RESP 18; TEMP 36.6; O2SAT 93
[2024-02-02] MEDS: Throat Lozenge, Medicated LOZENGE 1 LOZENGE MUCOUS MEM (19:41)
--- NOTE | 2024-02-02 23:57 | P.CNID_ITS ---
History of Present Illness Data of Consult Service Date: 02/02/24 Requesting physician: Colt Andres Primary Care Provider: None Physician HPI Reason for consult: bilateral leg erythema He has bilateral leg swelling discomfort with redness over last 3-4 day. He has blisters and denuded skin with no fever. Review of Systems 2 Musculoskeletal: Musculoskeletal: Reports joint swelling PMFSH Past Medical History Medical History (Updated 02/03/24 @ 00:00 by Donna Baker MD) Erythema Essential hypertension Stasis dermatitis of both legs Anemia Asthma Morbid obesity Psoriasis Social History Social History Household Members: Family Household Members Other:: Son and daughter in law Housing: House Do you presently have visiting nurse or other home services: No Alcohol intake: former Patient Tobacco Use Status: Never used Tobacco service: No Meds Allergies Allergy/AdvReac Type Severity Reaction Status Date / Time No Known Allergies Allergy Verified 01/31/24 13:30 Active Medications: Current Medications Acetaminophen (Acetaminophen 325 Mg Tablet) 975 mg PO Q6H PRN PRN Reason: Pain, Mild (Pain Scale 1-3), fever or headache Last Admin: 02/02/24 02:16 Dose: 975 mg Amlodipine Besylate (Amlodipine Besylate 5 Mg Tablet) 5 mg PO DAILY BUTCH; Protocol Last Admin: 02/02/24 07:58 Dose: 5 mg Benzocaine (Throat Lozenge, Medicated Lozenge) 1 lozenge MUCOUS MEM Q2H PRN PRN Reason: Sore Throat Last Admin: 02/02/24 19:41 Dose: 1 lozenge Enoxaparin Sodium (Enoxaparin Sodium 40 Mg/0.4 Ml Syringe) 40 mg SUBCUT Q24H BUTCH Last Admin: 02/02/24 07:58 Dose: 40 mg Guaifenesin/Dextromethorphan (Guaifenesin Dm 200/20/10 Ml 10 Ml Syrup) 10 ml PO Q4H PRN PRN Reason: Cough Hydrocortisone (Hydrocortisone 1 % Cream 28.35 Gm Tube) 1 appl TOPICAL DAILY BUTCH; Protocol Last Admin: 02/02/24 16:40 Dose: Not Given Piperacillin Sod/Tazobactam (Sod 3.375 gm/ Sodium Chloride) 50 mls @ 100 mls/hr IV Q6H BUTCH Last Infusion: 02/02/24 20:00 Dose: Infused Vancomycin HCl 1,000 mg/ (Sodium Chloride) 270 mls @ 270 mls/hr IV Q8H [facility] Last Infusion: 02/02/24 19:42 Dose: Infused Melatonin (Melatonin 3 Mg Tablet) 6 mg PO BEDTIME PRN PRN Reason: Insomnia Oxycodone HCl (Oxycodone Hcl Immed Release 5 Mg Tablet) 5 mg PO Q6H PRN PRN Reason: Pain, Severe (Pain Scale 7-10) Pharmacy Consult (Consult Rx Vancomycin Dosing) 1 each MISCELLANE DAILY PRN PRN Reason: Consult order Sodium Chloride (0.9 % Sodium Chloride Flush 3 Ml Syringe) 3 ml IVFLUSH QSHIFT [facility] Last Admin: 02/02/24 17:40 Dose: 3 ml Home Medications ?Medication ?Instructions ?Recorded ?Confirmed ?Last Taken ?Type No Known Home Meds 02/01/24 02/01/24 Unknown History Physical Exam 2 Vital Signs: Vital Signs: Last Vital Signs Temp 97.8 F 02/02/24 19:06 Pulse 82 02/02/24 19:06 Resp 18 02/02/24 19:06 BP 141/80 H 02/02/24 19:06 Pulse Ox 93 02/02/24 19:06 O2 Del Method Room Air 02/02/24 19:06 BMI result Body Mass Index 51.4 Results Labs 02/01/24 06:31 02/02/24 06:03 Labs: BMP 02/02/24 06:03 Sodium 141 Potassium 4.0 Chloride 105 Carbon Dioxide 28 BUN 8 L Creatinine 0.75 Calcium 9.0 Microbiology Microbiology Results: Microbiology 01/31/24 23:27 Blood - Venous Blood Culture - Preliminary No growth after 24 hours. 01/31/24 23:01 Blood - Venous Blood Culture - Preliminary No growth after 24 hours. Assessment and Plan (1) Erythema: Status: Acute Plan Argee Vanomycin for now and possilbly skin source onsider vnt /roclacculateooooooooooooooooooooooooooooooooooooooooooooooooooooooooooooooooooo oooooooooooooooooooo oooooooooooooooooooooooooooooooooooooooooooooooooooooooooooooooooooooooooooooooo oooooooooooooooooooo oooooooooooooooooooooooooooooooooooooooooooooooooooooooooooooooooooooooooooooooo oooooooooooooooooooo oooooooooooooooooooooooooooooooooooooooooooooooooooooooooooooooooooooooooooooooo ooooooooooooooooooooooo
[2024-02-03] MEDS: 0.9 % Sodium Chloride Flush 3 ML SYRINGE IVFLUSH ×2 (00:34→08:00)
[2024-02-03] MEDS: guaiFENesin DM 200/20/10 ML 10 ML SYRUP PO (00:34)
[2024-02-03] MEDS: Piperacillin Sodium/Tazobactam 3.375 GM in 0.9 % Sodium Chloride 50 ML IV ×2 (00:34→06:37)
[2024-02-03] MEDS: vancomycin HCL 1,000 MG in 0.9 % Sodium Chloride 250 ML 270 MG IV (01:16)
[2024-02-03 03:46] VITALS: BP 144/86; PULSE 71; RESP 19; TEMP 36; O2SAT 91
[2024-02-03 07:37] LABS: Anion Gap 14 (12-20); Blood Urea Nitrogen 10 mg/dL (9-16); Calcium 9.3 mg/dL (8.4-10.2); Carbon Dioxide 28 mmol/L (22-29); Chloride 103 mmol/L (96-108); Creatinine Clr Calc Pharmacy 177.9; Estimated Glomerular Filt Rate > 60; Glucose Random 112 mg/dL (60-115); Potassium 3.9 mmol/L (3.3-5.1); Sodium 141 mmol/L (135-145)
[2024-02-03 07:56] VITALS: BP 159/76; PULSE 72; RESP 20
[2024-02-03 07:58] VITALS: RESP 18; TEMP 36.4; O2SAT 92
[2024-02-03] MEDS: Enoxaparin Sodium 40 MG/0.4 ML SYRINGE SUBCUT (08:01)
[2024-02-03] MEDS: amLODIPine Besylate 5 MG TABLET PO (08:01)
[2024-02-03] MEDS: Hydrocortisone 1 % Cream 28.35 GM TUBE 1 APPL TOPICAL (08:03)
[2024-02-03] MEDS: Doxycycline Monohydrate 100 MG CAPSULE PO (08:31)
--- NOTE | 2024-02-03 09:02 | P.DS_ITS ---
DS: Providers Provider Date of Service: 02/03/24 Date of admission: 02/01/24 00:44 Primary care physician: None Physician Consults: 02/01/24 08:56 Consult to Wound Care Routine Reason for consultation: cellulitis 02/02/24 11:13 Consult to Infectious Diseases Routine Consulting [place] [facility] Reason for consultation: severe cellulitis of the legs DS: Diagnosis Discharge Diagnosis (1) Bilateral cellulitis of lower leg: Status: Acute (2) Cellulitis of right lower extremity: Status: Acute DS: Summary Hospital Course Hospital Course: Admission HPI Chief Complaint: Left lower extremity redness Joseph Bailey is a 54 years old man with past medical history significant for leg stasis dermatitis, morbid obesity and essential hypertension presents to the emergency department complaining of worsening redness, swelling and pain to the right lower extremity over the last several days associated with fluid weeping. He also complained of cough and sore throat. Did not report fever or chills. Did not report any acute abdominal pain, nausea, vomiting or diarrhea. In the ED, he was found to have stable vital signs. Blood workup showed no leukocytosis. There is no lactic acidosis. Hemoglobin is around baseline. Platelets are normal. There are no electrolyte imbalances. Renal function is normal. Hospital course: The patient presented with right lower extremity stasis dermatitis and venous insufficiency, complicated by superimposed acute cellulitis. A leg ultrasound was performed and found to be negative for DVTs. Treatment included Vancomycin, Zosyn, and a topical steroid, resulting in significant improvement. Blood cultures were negative. The Infectious Disease team recommended a 1-week course of doxycycline. Wound Care assessed the patient and provided recommendations, including follow-up with the Wound Care Clinic as outlined below. Essential hypertension--prescribed noravasc 5 mg daily Morbid obesity, BMI 50.4 kg/m2. Weight loss advised via exercise and diet Chronic anemia. Continue to monitor hemoglobin. Physical Exam Vital Signs: Vital Signs: Last Vital Signs Temp 97.6 F 02/03/24 07:58 Pulse 72 02/03/24 07:56 Resp 18 02/03/24 07:58 BP 159/76 H 02/03/24 07:56 Pulse Ox 92 02/03/24 07:58 O2 Del Method Room Air 02/03/24 07:58 BMI result Body Mass Index 51.4 Const: Other: General: AO X 3, no acute distress Resp: CTA bilateral CVS: S1,S2,RRR GI: +BS, NT, no distention Skin: less erythematous compare from pic from yesterday Neuro: motor grossly intact Psych: appropriate affect DS: Data Data Completed and Pending Labs on day of discharge: Laboratory Results - last 24 hr 02/02/24 02/03/24 15:52 05:28 Sodium 141 Potassium 3.9 Chloride 103 Carbon Dioxide 28 Anion Gap 14 BUN 10 Creatinine 0.77 Estim Creat Clear Calc 177.9 Estimated GFR > 60 Random Glucose 112 Calcium 9.3 Random Vancomycin 12.4 L Preliminary micro results at discharge 01/31/24 23:27 Blood Culture - Preliminary Blood - Venous No growth after 48 hours. 01/31/24 23:01 Blood Culture - Preliminary Blood - Venous No growth after 48 hours. Discharge Plan Discharge Anticipated Discharge Date/Time: 02/03/24 08:59 Patient Disposition: Home, Self-Care Discharge Diagnosis: Bilateral leg cellulitis superimposed on chronic venous stasis and stasis dermatitis Referrals: Physician,None [Primary Care Provider] - 1 Week Discharge Medications: New amlodipine 5 mg Tablet 5 mg PO DAILY Qty: 90 0RF Protocol: Hold for SBP< HOLD for SBP < : 90 hydrocortisone 1 % Cream 1 appl topical DAILY Qty: 1 0RF Protocol: Apply to: Apply to: apply to legs daily doxycycline monohydrate 100 mg Capsule 100 mg PO BID Qty: 14 0RF No Action No Known Home Meds Discharge Orders: Discharge Order (Routine); Ordered 02/03/24 Ordered By: Colt Andres Diet: Advance to usual diet Activity on Discharge: As tolerated Stand Alone Forms: Patient Portal Discharge page Print Language: Armenian Activity Restrictions/Additional Instructions: Topical Wound Care Recommendations: Bilateral Lower Legs - Elevate lower legs off of surface of bed with use of pillows.? Cleanse with Mercedes [place], Pat dry.?Apply Topical steroid to lower legs per provider order. Apply vaseline to both legs, cover with ABD pad, gauze wrap and tape or Elastic netting.? Change Daily. Patient should follow up outpt with OT for Lymphedema and compression therapy.? [facility] [place] [address] . Recommend follow up out patient Wound Clinic at [address], [place] [address] and to call for an appointment at time of discharge. [phone].? Recommend patient to consider Edema Wear outpt as not available inpatient.? These can be obtained from the following website. [email or web address] . Edema Wear Compression Stockings ? Recommend Size Medium Edema Wear compression garments should be applied first thing in the morning and may be removed at night when legs are elevated in bed.? Hand wash and hang dry.? Stockings should be worn from the base of the toes to just below the knee.? Fold over at end to prevent rolling.? They are disposable after about 2 weeks or regular use. Care Plan Goals: Wound healing Health Concerns: Cellulitis of the leg, lymphedema, stasis dermatitis. Plan of Treatment: Take doxycycline as recommended and follow the above recommendation. Assessment: See above
--- NOTE | 2024-02-03 09:17 | MHC.CM.PN ---
PATIENT IS DISCHARGED TO HOME TODAY SELF CARE. PATIENT WILL ARRANGE FOR A RIDE HOME.
--- NOTE | 2024-02-03 12:39 | PC.NURSE ---
Patient asking about PCP refferal,case management provided patient with names of the doctors
--- NOTE | 2024-02-04 22:46 | W.PM.IDCN ---
History of Present Illness Data of Consult Service Date: 02/02/24 Requesting physician: Colt Andres Primary Care Provider: None Physician HPI Reason for consult: right leg cellulitis He complains of right leg redness over last 4-5 days He has had swelling. 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 He has flares of cellulitis he says every few months. Review of Systems Review of Systems: Yes all other systems are reviewed and are negative [facility] Past Medical History Medical History (Updated 02/03/24 @ 00:00 by Donna Baker MD) Erythema Essential hypertension Stasis dermatitis of both legs Anemia Asthma Morbid obesity Psoriasis Family History Family history: reviewed and not pertinent Social History Social History Household Members: Family Household Members Other:: Son and daughter in law Housing: House Do you presently have visiting nurse or other home services: No Alcohol intake: former Patient Tobacco Use Status: Never used Tobacco service: No Meds Allergies Allergy/AdvReac Type Severity Reaction Status Date / Time No Known Allergies Allergy Verified 01/31/24 13:30 Physical Exam Vital Signs: Vital Signs: Last Vital Signs Temp 97.6 F 02/03/24 07:58 Pulse 72 02/03/24 07:56 Resp 18 02/03/24 07:58 BP 159/76 H 02/03/24 07:56 Pulse Ox 92 02/03/24 07:58 O2 Del Method Room Air 02/03/24 07:58 BMI result Body Mass Index 51.4 Const: General: cooperative HEENT: Head: Yes normal to inspection Face and sinus: Yes normal facial exam Mouth: Normal oral and palatal mucosa present Teeth and gingiva: dentition normal Eyes: General: appearance normal, both eyes and all related structures Pupils: Equal, round and reactive pupils present Resp: Effort & Inspection: normal respiratory effort Cardio: Rate: regular rate Rhythm: regular rhythm GI: Palpation (GI): Soft to palpation and nontender : General: Yes no CVA tenderness Back/Spine/Pelvis: Back: no CVA tenderness Skin: General skin exam: no rashes or lesions noted Neuro: General: moves all extremities Cranial nerves: Yes Equal, round and reactive pupils present Extrem: Other: redness right more than left leg and swelling General: Yes normal to inspection Psych: Appearance: grossly normal Results Labs 02/01/24 06:31 02/03/24 05:28 Microbiology Microbiology Results: Microbiology 01/31/24 23:27 Blood - Venous Blood Culture - Preliminary No growth after 48 hours. 01/31/24 23:01 Blood - Venous Blood Culture - Preliminary No growth after 48 hours. Assessment and Plan (1) Erythema: Status: Acute (2) Cellulitis of right lower extremity: Status: Acute Plan probable staph or strep Strep can be recurrent Would continue current antibiotics Probable discharge on Augmentin or Clindamycin for a week. Consider PCN prophylaxis 250 bid
== END 2024-02-03 13:25 | disposition home or self-care (01) | DRG 383 ==
LOC: HO.ED 23:27 → HO.EDOVER 02-01 00:56 → HO.S3 02-01 01:54
PROVIDERS: Physician Assistant; Physician Assistant Medical; Admitting Provider Internal Medicine; Emergency Provider Emergency Medicine; Visit Provider Internal Medicine
DX: L03.115 Cellulitis of right lower limb (principal); Z68.43 Body mass index [BMI] 50.0-59.9, adult; L03.116 Cellulitis of left lower limb; E66.01 Morbid (severe) obesity due to excess calories; I10 Essential (primary) hypertension; I87.2 Venous insufficiency (chronic) (peripheral); Z20.822 Contact with and (suspected) exposure to COVID-19
CPT/HCPCS: 36415; 73590; 80048; 80202; 83036; 83605; 85025; 85652; 86140; 87040; 87635; 87651; 93970; 99285; J0690; J1650; J2543; J3370

== ENCOUNTER → 2024-02-01 00:44 | Outpatient (BNV) | payer MEDICAID, SELFPAY | PROVIDERS: Admitting Provider Internal Medicine; Emergency Provider Emergency Medicine; Visit Provider Internal Medicine | DX: L53.9 Erythematous condition, unspecified (principal); L03.115 Cellulitis of right lower limb | CPT/HCPCS: 99222 ==

== ENCOUNTER → 2024-02-01 00:44 | Outpatient (BNV) | payer BC, SELFPAY | PROVIDERS: Admitting Provider Internal Medicine; Emergency Provider Emergency Medicine; Visit Provider Internal Medicine | DX: L03.115 Cellulitis of right lower limb (principal) | CPT/HCPCS: 99222; 99232; 99499 ==

== ENCOUNTER 2024-06-15 10:57 | Outpatient (AMB) | payer OTHER, SELFPAY ==
--- NOTE | 2024-06-15 11:53 | A.OFFPC_ITS ---
Vital Signs 3 06/15/24 11:54 Height 5 ft 11 in Weight 368 lb 4 oz BMI 51.4 BP 142/90 H Blood Pressure Location Lt brachial Position Sitting Pulse 69 Pulse Source Pulse Oximeter Pulse Oximetry (%) 96 Oxygen Delivery Method Room Air Intake Visit Reasons: establish care Exercise Science Instructor Required: No Accompanied by: Self / Same As Patient Allergies No Known Allergies Allergy (Verified 06/15/24 12:26) Medication List - Last Reconciled 06/15/24 by Jorge Gilliland PA-C amlodipine 5 mg See Protocol PO DAILY Tobacco use date assessed: 06/15/24 Dental Screening Dental Screen Date: 06/15/24 Did you have a dental visit in the last 12 months?: Yes Did you have a dental problem in the last 6 months where you did not have access to dental care?: No Was dental information given to patient?: Patient has dentist HPI establish care 2 HPI0 Details Patient is a 54-year-old male here today to establish care. He is seeing PCP was in [place] though has not been seen in several years. Patient's seems to have a past medical history significant for hypertension, obstructive sleep apnea, asthma, psoriasis, obesity and bilateral lower extremity lymphedema with venous stasis issues. .. Bilateral lower extremity lymphedema: chronic leg pain and swelling, alongside a diagnosis of venous dermatitis reported over the past two years. Initial episodes were initially attributed to cellulitis, with subsequent identification as venous dermatitis following unresolved symptomology. Symptoms include pronounced swelling, pain, and skin fissures primarily in the lower extremities, reported by the patient to be severe and debilitating. Previous episodes managed with antibiotics and steroids showed limited improvement, with steroids providing the most relief but no long- term solution due to adverse effects of chronic use Hypertension: Patient continues on amlodipine 5 mg though blood pressure remains elevated today in office. Due to pedal edema being a side effect will discontinue amlodipine. Will transitioned to lisinopril for blood pressure control. .. Psoriasis: He does report having a history of psoriasis though has not had any proper treatment. He is tried [id number] ointments and creams though have not been effective. He is willing to see a superintendent operating .. Class 3 obesity: Today's BMI is well over 50. He does understand he is severely obese and needs to work weight reduction though has found it very difficult to do so. He is asking for GLP 1 to help him lose weight. In the setting of also having obstructive sleep apnea it would not be a bad idea to try Zepbound to help with weight loss. .. Obstructive sleep apnea: Was diagnosed many years ago was on a CPAP machine though stopped using machine for some unclear reason. Will send for home sleep study to again evaluate and established diagnosis of obstructive sleep apnea [facility] Medical History (Updated 06/15/24 @ 12:46 by Jorge Gilliland PA-C) Asthma Erythema Essential hypertension Stasis dermatitis of both legs Anemia Morbid obesity Psoriasis Social History Household Members: Family Household Members Other:: Son and daughter in law Housing: House Do you presently have visiting nurse or other home services: No Alcohol intake: former Patient Tobacco Use Status: Never used Tobacco e-Cigarette/Vaping Use: Never Used service: No Cognitive needs: No Hearing needs: No Vision needs: No Questionnaire PHQ-9 Over the last 2 weeks, how often have you been bothered by any of the following problems? 1. Little interest or pleasure in doing things: not at all 2. Feeling down, depressed, or hopeless: not at all 3. Trouble falling or staying asleep, or sleeping too much: not at all 4. Feeling tired or having little energy: not at all 5. Poor appetite or overeating: not at all 6. Feeling bad about yourself - or that you are a failure or have let yourself or your family down: not at all 7. Trouble concentrating on things, such as reading the newspaper or watching television: not at all 8. Moving or speaking so slowly that other people could have noticed. Or the opposite - being so fidgety or restless that you have been moving around a lot more than usual: not at all 9. Thoughts that you would be better off or of hurting yourself in some way: not at all Total score: 0 Depression Screening Interpretation: Negative Depression Screening Done: Yes 57318 - PHQ-9 Billing: Yes Source: Developed by Drs. Robi Chiu, Lindy Cole, Winston Celis and colleagues, with an educational baron from [employer]. Thrive Questionnaire Date Thrive assessed: 06/15/24 I am a: Patient What is your living situation today?: I have a place to live, but I am worried about losing it in the future Within the past 12 months, did the food you bought not last and you didn't have the money to get more?: Sometimes True Within the past 12 months, did you worry whether your food would run out before you got money to buy more?: Sometimes True Do you have trouble paying for medicines?: Yes Do you have trouble getting transportation to medical appointments?: No Do you have trouble paying your heating and electricity bill?: I choose not to answer this question Do you have trouble taking care of your child, family member or friend?: No Do you have trouble with day-to-day activities such as bathing, preparing meals, shopping, managing finances, etc.?: No Are you currently unemployed and looking for a job?: Yes Are you interested in more education?: No Please select the resources that you would like help with: Housing/Custodial, Food and Paying for medicine Currently or been in a relationship where the following occur: No concerns reported THRIVE Score: 3 AUDIT C Alcohol Use Questionnaire (AUDIT-C) 1. How often do you have a drink containing alcohol?: Monthly or less 2. How many drinks containing alcohol do you have on a typical day when you are drinking?: 1 or 2 3. How often do you have six or more drinks on one occasion?: Never Total Score: 1 JEANCARLOS-7 AMB Questionnaire JEANCARLOS-7 Date JEANCARLOS - 7 assessed: 06/15/24 Feeling nervous, anxious, or on edge: 0 = Not at all Not being able to stop or control worryin = Not at all Worrying too much about different things: 1 = Several days Trouble relaxin = Not at all Being so restless that it is hard to sit still: 0 = Not at all Becoming easily annoyed or irritable: 0 = Not at all Feeling afraid as if something awful might happen: 0 = Not at all Total JEANCARLOS-7 score (0-4 normal; 5-9 mild; 10-14 moderate; 15-21 severe): 1 Source: Developed by Drs. Robi Chiu, Lindy Cole, Winston Celis and colleagues, with an educational baron from [employer]. JEANCARLOS-7 Assessment Billing JEANCARLOS-7 Assessment Tool: JEANCARLOS-7 Assessment 87216 Review of Systems Const Denies headache(s) Eyes Denies loss of vision ENT Denies vertigo, Denies dizziness, Denies headache(s) and Denies sore throat Card Denies chest pain, Denies leg edema and Denies lightheadedness Resp Denies cough, Denies hemoptysis and Denies wheezing GI Denies abdominal pain, Denies melena, Denies constipation, Denies diarrhea and Denies vomiting Denies dysuria, Denies urinary frequency and Denies urinary urgency Musc Denies arthralgias, Denies joint swelling, Denies numbness and Denies tingling Neuro Denies Abnormal speech present, Denies behavioral changes, Denies vertigo, Denies dizziness, Denies headache(s), Denies loss of vision, Denies memory loss, Denies numbness and Denies tingling Psych Denies anxiety, Denies behavioral changes, Denies depression, Denies memory loss and Denies panic attacks Desmond/Lymph Denies easy bleeding and Denies easy bruising Aller/Immun Denies wheezing Physical exam (Primary Care) Vital Signs: Last Vital Signs Pulse 69 06/15/24 11:54 BP 142/90 H 06/15/24 11:54 Pulse Ox 96 06/15/24 11:54 Oxygen Delivery Method Room Air 06/15/24 11:54 BMI result Body Mass Index 51.4 BMI Assessment/Plan discussion: High BMI High, discussed plan: lifestyle, weight reduction, dietary and physical activity Tobacco/Smoking Status: Tobacco use Status Tobacco use date assessed 06/15/24 06/15/24 11:59 Patient Tobacco Use Status Never used Tobacco 06/15/24 11:59 e-Cigarette/Vaping Use Never Used 06/15/24 11:59 PHQ-9: PHQ-9 Score PHQ-9: Total score 0 06/15/24 12:29 Depression Screening Interpretation: Negative Thrive Assessment: Date of Thrive Assessment Date Thrive assessed 06/15/24 06/15/24 12:06 Currently or been in a relationship where the following occur: No concerns reported Const General: healthy appearing, no acute distress, alert and awake Nutritional Appearance: well nourished Orientation/consciousness: oriented to person, oriented to place and oriented to time HENMT Ears: TM's normal bilaterally General nose exam: Normal nasal mucous membranes and turbinates present Eyes Conjunctivae: conjunctivae normal Sclerae: sclerae normal Pupils: Equal, round and reactive pupils present Neck Neck: Yes no lymphadenopathy and Yes no JVD Thyroid: Thyroid normal Carotids: no bruits Resp Effort & Inspection: normal respiratory effort and not tachypneic Auscultation: no crackles, no rales, no rhonchi and no wheezes Cardio Rate: regular rate Rhythm: regular rhythm Heart sounds: no murmurs and normal S1 and S2 GI Palpation (GI): Soft to palpation, nontender, no hepatomegaly and no splenomegaly Auscultation: normal bowel sounds Skin General skin exam: no rashes or lesions noted and dry skin Neuro General: oriented to person, oriented to place and oriented to time Cranial nerves: Yes Equal, round and reactive pupils present Speech: No Abnormal speech present Gait exam (Neuro): Normal gait present Motor exam (neuro): no tremor noted Extrem Other: Right upper extremity: full ROM Left upper extremity: full ROM Right lower extremity: full ROM; no edema Left lower extremity: full ROM; no edema Psych Mental Status: mental status grossly normal Speech and movement: Normal speech and movement present Affect: normal affect Attitude: cooperative Thought process: Normal thought process present Office Procedures Flu Questionnaire Does the patient have a severe egg allergy?: No Does the patient have severe life threatening allergies?: No Does the patient have a fever or illness today?: No Has the patient ever had Guillain-Cecil Syndrome?: No Has the patient ever had any past reaction to a flu shot?: No Results AMB Hemoglobin A1c 2 AMB Hemoglobin A1c 5.3 % Last Edit by MIO Everett on 06/15/24 12:16 Immunizations Fluarix Triv [id number] (PF) 45 mcg (15 mcg x 3)/0.5 mL IM syringe Performing Provider: Jorge Gilliland PA-C [facility] Documented (not given) by: MIO Everett on 06/15/24 12:16 Reason Not Given: Patient Refused Results Reviewed Results Reviewed: Laboratory Last Values Hgb A1c (Clinic) 5.3 % (4.0-6.0) 06/15/24 12:01 Coding Level of Care Code New Pt Level 4 (63775) Diagnoses Cellulitis of right lower extremity L03.115 Essential hypertension I10 Moderate asthma with acute exacerbation, unspecified whether persistent J45.901 Asthma complication type: with acute exacerbation Asthma persistence: unspecified Asthma severity: moderate Stasis dermatitis of both legs I87.2 KALINA (obstructive sleep apnea) G47.33 Class 3 obesity E66.813 Psoriasis L40.9 Screening for diabetes mellitus (DM) Z13.1 Additional Codes JEANCARLOS-7 Assessment Billing - JEANCARLOS-7 Assessment Tool: JEANCARLOS-7 Assessment 17972 ([id number]) PHQ-9 - 51300 - PHQ-9 Billing: Yes ([id number]) Assessment & Plan Assessment & Plan (1) Cellulitis of right lower extremity: Code(s): L03.115 - Cellulitis of right lower limb Category: Medical Plan: Patient's limbs due appeared to have chronic edema with skin changes and open sores that appeared to be psoriasis in nature. Due to the erythematous skin will try an antibiotic and a prednisone taper. PLEASE SEE PICTURE SECTION LOWER EXTREMITIES Referral to dermatology planned. Meanwhile, prescribing a barrier cream for skin protection. (2) Essential hypertension: Code(s): I10 - Essential (primary) hypertension Category: Medical Plan: Will transitioned from amlodipine to lisinopril for blood pressure control due the fact that amlodipine can cause worsening lower extremity edema. Goal blood pressures to be below 140/90 (3) Asthma: Code(s): J45.909 - Unspecified asthma, uncomplicated Category: Medical Qualifiers: Asthma complication type: with acute exacerbation Asthma persistence: u nspecified Asthma severity: moderate Qualified Code(s): J45.901 - Unspecified asthma with (acute) exacerbation Plan: Patient reports his asthma has been fairly well controlled, only rarely has to use his albuterol inhaler. (4) Stasis dermatitis of both legs: Code(s): I87.2 - Venous insufficiency (chronic) (peripheral) Category: Medical Plan: The patient will be referred to vascular surgery for evaluation. Management may involve compression therapy and potential surgical options. (5) KALINA (obstructive sleep apnea): Code(s): G47.33 - Obstructive sleep apnea (adult) (pediatric) Category: Medical Plan: As per HPI will send for a home sleep study to establish diagnosis of obstructive sleep apnea and the further need for a CPAP machine. (6) Class 3 obesity: Code(s): E66.813 - Obesity, class 3 Category: Medical Plan: A sleep study will be ordered to confirm the diagnosis, and manage appropriately upon confirmation. (7) Psoriasis: Code(s): L40.9 - Psoriasis, unspecified Category: Medical Plan: As above (8) Screening for diabetes mellitus (DM): Code(s): Z13.1 - Encounter for screening for diabetes mellitus Category: Medical Plan: As per HPI Orders: Orders 2 RT home sleep study Today G47.33 - Obstructive sleep apnea (adult) (pediatric) Comprehensive [place]. Panel Fast Today Z13.1 - Encounter for screening for diabetes mellitus Complete Blood Count no Diff Today Z13.1 - Encounter for screening for diabetes mellitus AMB Hemoglobin A1c Today Z13.1 - Encounter for screening for diabetes mellitus, Z13.9 - Encounter for screening, unspecified Influenza [id number] Immunization Today Z23 - Encounter for immunization Referrals 2 Vascular Surgery Referral I87.2 - Venous insufficiency (chronic) (peripheral) Dermatology Referral L40.9 - Psoriasis, unspecified Medications: New 2 lisinopril 10 mg PO DAILY 30 tabs 3RF 30 days I10 - Essential (primary) hypertension amoxicillin-pot clavulanate 875-125 mg 1 tab PO BID 20 tabs 0RF 10 days L03.115 - Cellulitis of right lower limb prednisone take 3 tabs x 3 days , take 2 tabs x 3 days , take 1 tab x 3 days 10 mg PO DIRECTED 18 tabs 0RF 9 days L03.115 - Cellulitis of right lower limb tirzepatide (weight loss) (Zepbound) for 4 weeks 2.5 mg (0.5 mL) subcut QWEEK 2 mL 0RF 4 weeks E66.813 - Obesity, class 3, G47.33 - Obstructive sleep apnea (adult) (pediatric) silver sulfadiazine 1% (Silvadene) apply a 1.5 mm thickness 1 appl topical BID 400 grams 1RF 30 days I87.2 - Venous insufficiency (chronic) (peripheral) Discontinued 2 amlodipine Discontinued Reason: Doctor's Order 5 mg See Protocol PO DAILY 90 tabs 0RF
[2024-06-15 11:54] VITALS: BP 142/90; PULSE 69; O2SAT 96; BMI 51.4
== END 2024-06-15 12:55 | disposition home or self-care (01) ==
LOC: HO.HMCH 10:58
PROVIDERS: PCP Physician Assistant; Visit Provider Physician Assistant
DX: I10 Essential (primary) hypertension (principal); E66.813 Obesity, class 3; Z68.43 Body mass index [BMI] 50.0-59.9, adult; L03.115 Cellulitis of right lower limb; J45.901 Unspecified asthma with (acute) exacerbation; I87.2 Venous insufficiency (chronic) (peripheral); G47.33 Obstructive sleep apnea (adult) (pediatric); L40.9 Psoriasis, unspecified; Z13.1 Encounter for screening for diabetes mellitus

== ENCOUNTER → 2024-06-15 10:57 | Outpatient (BNVA) | payer OTHER, SELFPAY | PROVIDERS: PCP Physician Assistant; Visit Provider Physician Assistant | DX: L03.115 Cellulitis of right lower limb (principal); I10 Essential (primary) hypertension; J45.901 Unspecified asthma with (acute) exacerbation; I87.2 Venous insufficiency (chronic) (peripheral); G47.33 Obstructive sleep apnea (adult) (pediatric); L40.9 Psoriasis, unspecified; E66.813 Obesity, class 3; Z68.43 Body mass index [BMI] 50.0-59.9, adult; Z71.3 Dietary counseling and surveillance | CPT/HCPCS: 83036; 96127; 99202 ==

== ENCOUNTER 2024-06-22 15:29 | Outpatient (AMB) | payer OTHER, SELFPAY ==
[2024-06-22 15:36] VITALS: BMI 51.3
--- NOTE | 2024-06-22 15:36 | MHC.OFFVIS ---
Vital Signs 06/22/24 15:36 Height 5 ft 11 in Weight 368 lb BMI 51.3 Intake Visit Reasons: [employer]ER [employer]OLLER/[facility] referral for Intake Note: [employer]ER [employer]OLLER/ Bilateral LE swelling w/ discoloration and skin breakdown and dry skin starting 2 yrs ago. Left LE worse than the Right LE. Pt states when he is on his feet while working,he gets lymphorrhea and causes wounds. Then the wounds start to sting. Key Bed Installer Required: No Accompanied by: Self / Same As Patient Allergies No Known Allergies Allergy (Verified 06/22/24 15:41) HPI HPI [employer]ER [employer]OLLER/[facility]MG referral for : Details: Shade is presenting today on a referral from his PCP for ongoing bilateral lower extremity swelling, worsening over the last 2-3 years. He has been seen multiple times for cellulitis and venous stasis dermatitis. He has been on multiple rounds of abx. He is currently applying Silvadene cream and is on steroids. He states these only help for short periods of time and the swelling, pain, and redness comes back. Complaints include pain over varicosities, swelling of lower extremities, dry skin, cramping, fatigue, and heaviness of the lower extremities. It has been affecting their daily activities including walking, standing, and physical activity. It is noted in bilateral legs, currently worse in the left; before it was worse in the right. He is not a smoker and does not have diabetes. Patient denies any previous venous surgery or injections. Patient denies any history of DVT/ PE. Patient denies any history of phlebitis. Trial of compression includes - compression socks and elevation with some help. Abx and steroids help temporarily They now present for vascular evaluation regarding their varicose veins. [facility] Medical History (Updated 06/23/24 @ 08:04 by Lakesha Sharp PA-C) Lymphedema Asthma Erythema Essential hypertension Stasis dermatitis of both legs Anemia Morbid obesity Psoriasis Social History Household Members: Family Household Members Other:: Son and daughter in law Housing: House Do you presently have visiting nurse or other home services: No Alcohol intake: former Patient Tobacco Use Status: Never used Tobacco e-Cigarette/Vaping Use: Never Used service: No Cognitive needs: No Hearing needs: No Vision needs: No Review of Systems Const Reports as per HPI and Denies weakness ENT Reports Normal hearing present and Denies dizziness Card Reports as per HPI, Denies chest pain, Denies chest pain at rest, Denies chest pain with activity, Denies dyspnea and Denies dyspnea on exertion Resp Reports as per HPI, Denies cough, Denies dyspnea and Denies dyspnea on exertion GI Reports as per HPI, Denies abdominal pain, Denies nausea and Denies vomiting Musc Denies numbness Skin/Breast Reports as per HPI, Denies erythema and Denies wounds Neuro Reports Normal hearing present, Denies dizziness, Denies numbness, Denies Sensory deficit (Neuro) and Denies weakness Psych Reports no additional complaints Endo Reports no additional complaints Physical Exam Vital Signs: BMI result Body Mass Index 51.3 Const General: healthy appearing and no acute distress Orientation/consciousness: patient oriented x3 HEENT Head: Yes normal to inspection Ears: hearing grossly normal bilaterally Mouth: Normal oral and palatal mucosa present Resp Effort & Inspection: normal respiratory effort and able to speak in complete sentences Auscultation: clear to auscultation bilaterally Cardio Jugular venous distension: no JVD Rate: regular rate Rhythm: regular rhythm Heart sounds: S1 normal heart sound present and S2 normal heart sound present Bruits: no abdominal aortic bruits, no carotid bruits, no femoral bruits and no renal bruits Peripheral pulses: Peripheral pulses 2+ throughout GI Inspection: Yes normal to inspection Palpation (GI): No Abdominal aortic bruit present Skin General skin exam: no rashes or lesions noted Wounds: no wounds Hair: normal Neuro General: patient oriented x3 Cranial nerves: Yes Normal hearing present Cognition (Neuro): normal cognition Gait exam (Neuro): Normal gait present Motor exam (neuro): 5/5 motor strength present throughout Sensory Exam: No Sensory deficit (Neuro) Extrem Other: Bilateral lower extremities: deep erythematous discoloration noted circumferentially from the tibial plateau to the toes. Hyperplasia, hyperkeratosis, and slight lymphorrhea noted. +3 pitting edema noted. Faint but palpable DP pulses noted, due to edema. CEAP: C - 4 E - primary A - superficial P - reflux Right in cm: Thigh 70 Knee 53 Calf 51 Ankle 35 Left in cm: Thigh 71 Knee 54 Calf 55 Ankle 34 General: Yes normal to inspection, Yes full ROM, Yes capillary refill normal and Yes normal gait Assessment & Plan Assessment & Plan (1) Varicose veins of both lower extremities with inflammation: Code(s): I83.11 - Varicose veins of right lower extremity with inflammation; I83.12 - Varicose veins of left lower extremity with inflammation Category: Medical Plan: Shade is presenting today on a referral from his PCP for bilateral lower extremity swelling, cramping, and discoloration. This has been going on for over 2-3 years now. In short, the patient has evidence of venous insufficiency. I have discussed the pathophysiology with the patient. In addition I have provided informational material regarding venous disease to the patient. We have discussed conservative measures including compression, elevation, and exercise. He has compression stockings that he wears daily. I have taken the liberty of ordering venous insufficiency testing with the patient. They will follow up with me after testing. The patient had an opportunity to ask questions regarding the treatment plan. All questions were answered. Imaging studies, laboratory studies and physical exam results were discussed and reviewed in detail. No major barriers to understanding were identified. The patient expressed understanding and agreement with the above treatment plan. The patient is aware they should contact our office by phone for worsening of the current condition or the appearance of new symptoms. Thank you for allowing me to participate in the vascular care of this patient. If you have any questions or concerns regarding the treatment for the above condition please do not hesitate to contact me. The office telephone contact is [phone]. This note is constructed using voice recognition software. While every effort has been made to ensure accuracy, expanded duty dental assistant errors may have been included. Thank you for allowing me to participate in the care of your patient. Yours sincerely, MARSHAL Zelaya (2) Lymphedema: Code(s): I89.0 - Lymphedema, not elsewhere classified Category: Medical Plan: Shade is being seen today as a referral from his PCP for venous insufficiency/lymphedema. He does have a history of lymphorrhea, hyperpigmentation, hyperkeratosis, and hyperplasia. We will be ruling out venous insufficiency with an ultrasound. In short the patient has late onset lymphedema. The patient has been on conservative treatment for at least 3 months with minimal relief. Patient has tried 30 mm of mercury compression garments, elevation, exercise, healthy diet, and doing manual says self MLD to the best of their ability for over 4 weeks but with no significant relief. He has been compliant with the program but has provided minimal relief. In addition, on physical exam, we are noticing hyperpigmentation, lymphorrhea, and hyperplasia. It appears that he has stage 2 lymphedema. Patient has completed multiple forms of conservative therapy yet significant symptoms remain. Patient requires the use of a pneumatic compression device, which we will assist in trying to have the patient obtain them. A pneumatic compression device will help reduce swelling and other lymphedema comorbidities. He will be added to our lymphedema clinic on August 09. Thank you for allowing us to assist in this patient's care. Orders: Orders US venous duplex LE BI 1 Week I83.11 - Varicose veins of right lower extremity with inflammation, I83.12 - Varicose veins of left lower extremity with inflammation Coding Level of Care Code New Pt Level 4 (06231) Diagnoses Varicose veins of both lower extremities with inflammation I83.11; I83.12 Lymphedema I89.0
== END 2024-06-23 15:13 | disposition home or self-care (01) ==
LOC: HO.HVS 15:29
PROVIDERS: PCP Physician Assistant; Visit Provider Physician Assistant Surgical
DX: I83.11 Varicose veins of right lower extremity with inflammation (principal); I83.12 Varicose veins of left lower extremity with inflammation; I89.0 Lymphedema, not elsewhere classified
CPT/HCPCS: 99204

== ENCOUNTER → 2024-06-22 15:29 | Outpatient (BNVA) | payer OTHER, SELFPAY | PROVIDERS: PCP Physician Assistant; Visit Provider Physician Assistant Surgical | DX: I83.11 Varicose veins of right lower extremity with inflammation (principal); I83.12 Varicose veins of left lower extremity with inflammation; I89.0 Lymphedema, not elsewhere classified | CPT/HCPCS: 99202 ==

== ENCOUNTER 2024-07-13 11:02 | Outpatient (AMB) | payer OTHER, SELFPAY ==
--- NOTE | 2024-07-13 11:10 | A.OFFPC_ITS ---
Vital Signs 3 07/13/24 11:11 Height 5 ft 11 in Weight 364 lb BMI 50.8 BP 150/80 H Blood Pressure Location Lt brachial Position Sitting Pulse 70 Pulse Source Pulse Oximeter Temp 97.3 F Temp Source Temporal Artery Scan Pulse Oximetry (%) 94 Oxygen Delivery Method Room Air Intake Visit Reasons: f/u leg Ski Base Trimmer Required: No Accompanied by: Self / Same As Patient Allergies No Known Allergies Allergy (Verified 07/13/24 11:20) Medication List - Last Reconciled 07/13/24 by Jorge Gilliland PA-C lisinopril 10 mg PO DAILY 30 days silver sulfadiazine 1% (Silvadene) 1 appl topical BID 30 days tirzepatide (weight loss) (Zepbound) 2.5 mg (0.5 mL) subcut QWEEK 4 weeks Tobacco use date assessed: 06/15/24 Dental Screening Dental Screen Date: 06/15/24 HPI f/u leg 2 HPI0 Details Patient is a 54-year-old male here today for follow-up visit. Patient's has a past medical history significant for hypertension, obstructive sleep apnea, asthma, psoriasis, obesity and bilateral lower extremity lymphedema with venous stasis issues. .. Bilateral lower extremity lymphedema: At last visit we discussed patient's chronic lower extremity swelling, has followed up with [facility] who increase he has lymphedema. He will be started with lymphedema clinic next month. He does report some clearing of his skin and less redness with prednisone though he does understand the long-term effects of prednisone. We did give him antibiotic which did help clear up some of the redness and pain in his legs. Hypertension: We have started lisinopril 10 mg though blood pressure remains elevated today in office. Will increase dose of lisinopril 20 mg for better blood pressure control . Will supply patient with paper Rx for a blood pressure monitor to do blood pressure monitoring. .. Psoriasis: He does report having a history of psoriasis though has not had any proper treatment. He is tried [id number] ointments and creams though have not been effective. He is still waiting to hear from a house wirer helper for evaluation .. Class 3 obesity: Has lost a small amount of weight since last office visit, . He does understand he is severely obese and needs to work weight reduction though has found it very difficult to do so. He is asking for GLP 1 to help him lose weight. In the setting of also having obstructive sleep apnea it would not be a bad idea to try Zepbound to help with weight loss. .. Obstructive sleep apnea: Was diagnosed many years ago was on a CPAP machine though stopped using machine for some unclear reason. Will send for home sleep study to again evaluate and established diagnosis of obstructive sleep apnea. Again we have prescribed patient's Zepbound to help him with weight reduction and with his comorbidity of obstructive sleep apnea [facility] Medical History Lymphedema Asthma Erythema Essential hypertension Stasis dermatitis of both legs Anemia Morbid obesity Psoriasis Social History Household Members: Family Household Members Other:: Son and daughter in law Housing: House Do you presently have visiting nurse or other home services: No Alcohol intake: former Patient Tobacco Use Status: Never used Tobacco e-Cigarette/Vaping Use: Never Used service: No Cognitive needs: No Hearing needs: No Vision needs: No Questionnaire PHQ-9 Over the last 2 weeks, how often have you been bothered by any of the following problems? Depression Screening Interpretation: Negative Depression Screening Done: Yes Source: Developed by Drs. Robi Chiu, Lindy Cole, Winston Celis and colleagues, with an educational baron from [employer]. Thrive Questionnaire Date Thrive assessed: 06/12/24 I am a: Patient What is your living situation today?: I have a place to live, but I am worried about losing it in the future Within the past 12 months, did the food you bought not last and you didn't have the money to get more?: Sometimes True Within the past 12 months, did you worry whether your food would run out before you got money to buy more?: Sometimes True Do you have trouble paying for medicines?: Yes Do you have trouble getting transportation to medical appointments?: No Do you have trouble paying your heating and electricity bill?: I choose not to answer this question Do you have trouble taking care of your child, family member or friend?: No Do you have trouble with day-to-day activities such as bathing, preparing meals, shopping, managing finances, etc.?: No Are you currently unemployed and looking for a job?: Yes Are you interested in more education?: No Currently or been in a relationship where the following occur: No concerns reported THRIVE Score: 3 JEANCARLOS-7 AMB Questionnaire JEANCARLOS-7 Date JEANCARLOS - 7 assessed: 06/15/24 Source: Developed by Drs. Robi Chiu, Lindy Cole, Winston Celis and colleagues, with an educational baron from [employer]. Review of Systems Neuro Denies Abnormal speech present Physical exam (Primary Care) Vital Signs: Last Vital Signs Temp 97.3 F 07/13/24 11:11 Pulse 70 07/13/24 11:11 BP 150/80 H 07/13/24 11:11 Pulse Ox 94 07/13/24 11:11 Oxygen Delivery Method Room Air 07/13/24 11:11 Care Plan Goal for BP management: Blood pressure to be below 140/90, reduce weight Next steps: Start increased dose of lisinopril 20 mg BMI result Body Mass Index 50.8 BMI Assessment/Plan discussion: High BMI High, discussed plan: lifestyle, weight reduction, dietary and physical activity Tobacco/Smoking Status: Tobacco use Status Tobacco use date assessed 06/15/24 07/13/24 11:14 Patient Tobacco Use Status Never used Tobacco 07/13/24 11:14 e-Cigarette/Vaping Use Never Used 07/13/24 11:14 Depression Screening Interpretation: Negative Thrive Assessment: Date of Thrive Assessment Date Thrive assessed 06/12/24 07/13/24 11:14 Currently or been in a relationship where the following occur: No concerns reported Const General: healthy appearing, no acute distress, alert and awake Nutritional Appearance: well nourished Orientation/consciousness: oriented to person, oriented to place and oriented to time HENMT Ears: TM's normal bilaterally General nose exam: Normal nasal mucous membranes and turbinates present Eyes Conjunctivae: conjunctivae normal Sclerae: sclerae normal Pupils: Equal, round and reactive pupils present Neck Neck: Yes no lymphadenopathy and Yes no JVD Thyroid: Thyroid normal Carotids: no bruits Resp Effort & Inspection: normal respiratory effort and not tachypneic Auscultation: no crackles, no rales, no rhonchi and no wheezes Cardio Rate: regular rate Rhythm: regular rhythm Heart sounds: no murmurs and normal S1 and S2 GI Palpation (GI): Soft to palpation, nontender, no hepatomegaly and no splenomegaly Auscultation: normal bowel sounds Skin General skin exam: no rashes or lesions noted and dry skin Neuro General: oriented to person, oriented to place and oriented to time Cranial nerves: Yes Equal, round and reactive pupils present Speech: No Abnormal speech present Gait exam (Neuro): Normal gait present Motor exam (neuro): no tremor noted Extrem Other: Right upper extremity: full ROM Left upper extremity: full ROM Right lower extremity: full ROM; no edema Left lower extremity: full ROM; no edema Psych Mental Status: mental status grossly normal Speech and movement: Normal speech and movement present Affect: normal affect Attitude: cooperative Thought process: Normal thought process present Coding Level of Care Code Est Pt Level 4 (21532) Diagnoses Essential hypertension I10 Stasis dermatitis of both legs I87.2 Class 3 obesity E66.813 Psoriasis L40.9 Assessment & Plan Assessment & Plan (1) Essential hypertension: Code(s): I10 - Essential (primary) hypertension Category: Medical Plan: Patient's blood pressure remains elevated today in office. Will increase his dose of lisinopril for better blood pressure control. Goal blood pressure to be below 140/90 (2) Stasis dermatitis of both legs: Code(s): I87.2 - Venous insufficiency (chronic) (peripheral) Category: Medical Plan: Patient now followed by [facility], will be starting with the lymphedema clinic next month. He does reports improvement in his skin with the use of Silvadene cream (3) Class 3 obesity: Code(s): E66.813 - Obesity, class 3 Category: Medical Plan: A sleep study will be ordered to confirm the diagnosis, and manage appropriately upon confirmation. Patient is very confused about diet and well good eating habits really looks like. He is interested in a dietitian to speak with. (4) Psoriasis: Code(s): L40.9 - Psoriasis, unspecified Category: Medical Plan: Patient's skin manifestations concerning for a pretty severe psoriasis. Will try to set patient up with a house wirer helper for disease modifying drug evaluation Orders: Referrals 2 Catalyst Operator [employer] Referral E66.813 - Obesity, class 3 Medications: New 2 lisinopril 20 mg PO DAILY 30 tabs 2RF 30 days I10 - Essential (primary) hypertension blood pressure monitor As directed 1 ea 0RF I10 - Essential (primary) hypertension amoxicillin-pot clavulanate 875-125 mg 1 tab PO ONCE 14 tabs 0RF 14 days I87.2 - Venous insufficiency (chronic) (peripheral) Discontinued 2 lisinopril Discontinued Reason: Doctor's Order 10 mg PO DAILY 30 days 30 tabs 3RF I10 - Essential (primary) hypertension
[2024-07-13 11:11] VITALS: BP 150/80; PULSE 70; TEMP 36.3; O2SAT 94; BMI 50.8
--- OUTSIDE RECORDS SUMMARY | 2024-07-13 13:31 | XMS_ITS | Encounter Summary ---
Author Organization [facility] Address [address] [place] [id number] Care Team Providers Care Sewer Builder Name Role Phone Mathew Chirinos STUDENT Primary Care Provider Unav ailable Encounter Details Date Type Department Care Team (Late st Contact Info) Description 05/07/2016 Lab Requisition [facility] [address] [place], [place] [id number] Social History Tobacco Use Types Packs/Day Years Used Date Smoking Tobacco: Former Alcohol Use Standard Drinks/Week Comments No 0 (1 standard drink = 0.6 oz pur e alcohol) Sex and Gender Information Value Date Recorded Sex Assigned at Male 05/15/2021 3:51 PM EST Legal Sex Male 9:31 PM EDT Gender Identity Male 06/17/2020 4:08 PM EDT Sexual Orientation Straight 06/17/2020 4: 08 PM EDT documented as of this encounter Plan of Treatment Not on file documented as of this encounter Visit Diagnoses Not on filedocumented in this encounter Additional Health Concerns Infection Onset Date Last Indicated Resolved Time R/O COVID-19 02/27/2021 02/27/2021 02/27/2021 8:06 PM EST R/O COVID-19 06/28/2022 06/28/2022 06/28/2022 1:40 AM EDT R/O Respiratory Virus 01/13/2023 01/13/20232022 11:39 PM EDT R/O COVID-19 01/13/2023 01/13/2023 01/13/2023 11:3 9 PM EDT RSV 01/13/2023 01/13/2023 01/16/2023 7:18 PM EDT documented as of this encounter Care Teams Sewer Builder Relationship Specialty Start Date End Date Mathew Chirinos, STUDENT PCP - General 06/20/24 documented as of this encounter
--- OUTSIDE RECORDS SUMMARY | 2024-07-13 13:31 | XMS_ITS | Encounter Summary ---
Author Organization [facility] Address [address] [place] [address] Care Team Providers Care Inspector Balance Truing Name Role Phone Mathew Chirinos STUDENT Primary Care Provider Unav ailable Reason for Visit * Reason Comments Medication Problem Encounter Details Date Type Department Care Team (Late st Contact Info) Description 06/30/[address] [address] Ubaldo Wang, STUDENT Medication Problem Social History Tobacco Use Types Packs/Day Years Used Date Smoking Tobacco: Never Smokeless Tobacco: Never Alcohol Use Standard Drinks/Week Comments No 0 (1 standard drink = 0.6 oz pur e alcohol) PHQ-2 Answer Date Recorded PHQ-2 Total Score 0 06/18/2021 Sex and Gender Information Value Date Recorded Sex Assigned at Male 05/15/2021 3:51 PM EST Legal Sex Male 9:31 PM EDT Gender Identity Male 06/17/2020 4:08 PM EDT Sexual Orientation Straight 06/17/2020 4: 08 PM EDT documented as of this encounter Miscellaneous Notes * Telephone Encounter - Chante Nava - 06/30/2021 4:32 PM EDT Patient is calling in because is having problem with medication ,metFORMIN (GLUCOPHAGE) 500 mg Immediate Release tablet nystatin-triamcinolone (MYCOLOG II) 100,000 unit/g-0.1% cream, patient states pharmacy is requesting a call back for prior authorization. documented in this encounter Plan of Treatment Not on file documented as of this encounter Visit Diagnoses Not on filedocumented in this encounter Additional Health Concerns Infection Onset Date Last Indicated Resolved Time R/O COVID-19 06/28/2022 06/28/2022 06/28/2022 1:40 AM EDT R/O Respiratory Virus 01/13/2023 01/13/20232022 11:39 PM EDT R/O COVID-19 01/13/2023 01/13/2023 01/13/2023 11:3 9 PM EDT RSV 01/13/2023 01/13/2023 01/16/2023 7:18 PM EDT Assessment Noted Time PHQ-9 Depression Total Score: 0 06/19/19 22 6:56 PM EDT documented as of this encounter Care Teams Inspector Balance Truing Relationship Specialty Start Date End Date Mathew Chirinos, STUDENT PCP - General 06/20/24 documented as of this encounter
--- OUTSIDE RECORDS SUMMARY | 2024-07-13 13:31 | XMS_ITS | Encounter Summary ---
Author Organization [facility] Address [address] [place] [address] Care Team Providers Care General Maintenance Technician Name Role Phone Mathew Chirinos STUDENT Primary Care Provider Unav ailable Encounter Details Date Type Department Care Team (Late st Contact Info) Description 07/01/2021 Refill [facility] [employer] [address] [place], [place] [id number] Chicho Anaya, KAYLEE [address] [place], [place] [phone] Social History Tobacco Use Types Packs/Day Years [...] documented as of this encounter Visit Diagnoses Diagnosis Prediabetes Other abnormal glucose documented in this encounter Additional Health Concerns Infection Onset Date Last Indicated Resolved Time R/O COVID-19 06/28/2022 06/28/2022 06/28/2022 1:40 AM EDT R/O Respiratory Virus 01/13/2023 01/13/202301/13/ 2023 11:39 PM EDT R/O COVID-19 01/13/2023 01/13/2023 01/13/2023 11:3 9 PM EDT RSV 01/13/2023 01/13/2023 01/16/2023 7:18 PM EDT Assessment Noted Time PHQ-9 Depression Total Score: 0 06/19/19 6:56 PM EDT documented as of this encounter Care Teams General Maintenance Technician Relationship Specialty Start Date End Date Mathew Chirinos, STUDENT PCP - General 06/20/24 documented as of this encounter
--- OUTSIDE RECORDS SUMMARY | 2024-07-13 13:31 | XMS_ITS | Encounter Summary ---
Author Organization [facility] Address [address] [place] [address] Care Team Providers Care Surgical Services Coordinator Name Role Phone Mathew Chirinos STUDENT Primary Care Provider Unav ailable Reason for Visit * Reason Comments Medication Refill Encounter Details Date Type Department Care Team (Late st Contact Info) Description 05/29/2021 Refill [facility] [employer] [address] [place], [place] [id number] Lizzy Mcleod MD [address] [place] [address] Medication Refill Social History Tobacco Use Types Packs/Day Years Used Date Smoking Tobacco: Former Smokeless Tobacco: Never Alcohol Use Standard Drinks/Week Comments No 0 (1 standard drink = 0.6 oz pur e alcohol) PHQ-2 Answer Date Recorded PHQ-2 Total Score 0 05/28/2021 Sex and Gender Information Value Date Recorded [...] 1:40 AM EDT R/O Respiratory Virus 01/13/2023 01/13/2023 10/18/ 2023 11:39 PM EDT R/O COVID-19 01/13/2023 01/13/2023 01/13/2023 11:3 9 PM EDT RSV 01/13/2023 01/13/2023 01/16/2023 7:18 PM EDT Assessment Noted Time PHQ-9 Depression Total Score: 0 05/29/19 22 5:17 PM EST documented as of this encounter Care Teams Surgical Services Coordinator Relationship Specialty Start Date End Date Mathew Chirinos, STUDENT PCP - General 06/20/24 documented as of this encounter
--- OUTSIDE RECORDS SUMMARY | 2024-07-13 13:31 | XMS_ITS | Encounter Summary ---
Author Organization [facility] Address [address] [place] [address] Care Team Providers Care Coin Box Inspector Name Role Phone Mathew Chirinos STUDENT Primary Care Provider Unav ailable Encounter Details Date Type Department Care Team (Late st Contact Info) Description 05/07/2016 Lab Requisition [facility] Specim[facility] [address] [place], [place] [phone] Gwendolyn Whitmore MD [address] [place] [address] Frequency of micturition Social History Tobacco Use Types Packs/Day Years [...] on file documented as of this encounter Procedures Procedure Name Priority Date/Time Associated Diagnosis Comments ZZZHEMATOCRIT Routine 05/06/2016 12:26 PM EST Frequency of micturition FOLATE RBC (YH) Routine 05/06/2016 12:26 PM EST Frequency of micturition documented in this encounter Results * Hematocrit (05/06/2016 12:26 PM EST) Hematocrit 43.3 37.0 - 52.0 % 05/07/2016 3:16 PM EST [facility] MCV 87.1 78.0 - 94.0 fL 05/07/2016 3:16 PM EST [facility] Blood specimen (specimen) 05/06/2016 12:26 PM EST 05/07/2016 3:14 PM EST us Gwendolyn Whitmore MD LAB BLOOD ORDERABLES Final Resu lt [facility] [address] [place] [id number] documented in this encounter Visit Diagnoses Diagnosis Frequency of micturition Urinary frequency documented in this encounter Additional Health Concerns Infection Onset Date Last Indicated Resolved Time R/O COVID-19 02/27/2021 02/27/2021 02/27/2021 8:06 PM EST R/O COVID-19 06/28/2022 06/28/2022 06/28/2022 1:40 AM EDT R/O Respiratory Virus 01/13/2023 01/13/20232022 11:39 PM EDT R/O COVID-19 01/13/2023 01/13/2023 01/13/2023 11:3 9 PM EDT RSV 01/13/2023 01/13/2023 01/16/2023 7:18 PM EDT documented as of this encounter Care Teams Coin Box Inspector Relationship Specialty Start Date End Date Mathew Chirinos, STUDENT PCP - General 06/20/24 documented as of this encounter
--- OUTSIDE RECORDS SUMMARY | 2024-07-13 13:31 | XMS_ITS | Encounter Summary ---
Author Organization [facility] Address [address] [place] [address] Care Team Providers Care Nuclear Operator Name Role Phone ChirinosRaine nicolasshua STUDENT Primary Care Provider Unav ailable Reason for Visit * Reason Comments Medication Problem Other Encounter Details Date Type Department Care Team (Late st Contact Info) Description 07/04/2021 Refill [facility] [address] [place] [address] FelipeBarre, [place], STUDENT Medication Problem; Other Social History Tobacco Use Types Packs/Day Years [...] encounter Miscellaneous Notes * Telephone Encounter - Huey Velasquez - 07/04/2021 1:48 PM EDT Patient called stating they need pcp to send a PA for nystatin-triamcinolone (MYCOLOG II) 100,000 unit/g-0.1% cream, utilizes [id number] - [place], [place] - [address] [facility] [place] [address] ) contact number [phone] documented in this encounter Plan of Treatment [...] documented as of this encounter Care Teams Nuclear Operator Relationship Specialty Start Date End Date Mathew Chirinos, STUDENT PCP - General 06/20/24 documented as of this encounter
--- OUTSIDE RECORDS SUMMARY | 2024-07-13 13:31 | XMS_ITS | Encounter Summary ---
Author Organization [facility] Address [address] [place] [address] Care Team Providers Care Nuclear Monitoring Technician Name Role Phone Mathew Chirinos STUDENT Primary Care Provider Unav ailable Reason for Visit * Reason Comments Other Encounter Details Date Type Department Care Team (Late st Contact Info) Description 07/23/2021 Telephone [facility] [address] [place] [address] Ubaldo Wang, STUDENT Other Social History Tobacco Use Types Packs/Day [...] encounter Miscellaneous Notes * Telephone Encounter - Lakesha Swenson - 07/23/2021 3:59 PM EDT Patient states that he missed a call from the provider . He is asking for a call back . Patient canbe reached at [phone] documented in this encounter Plan of Treatment [...] as of this encounter Care Teams Nuclear Monitoring Technician Relationship Specialty Start Date End Date Mathew Chirinos, STUDENT PCP - General 06/20/24 documented as of this encounter
--- OUTSIDE RECORDS SUMMARY | 2024-07-13 13:31 | XMS_ITS | Clinical Summary ---
Author Organization [facility] Address [address] [place] [address] Care Team Providers Care Diesel Engine Mechanic Name Role Phone Pcp, No Primary Care Provider Unavailabl e Allergies No known active allergies Medications triamcinolone (KENALOG) 0.1 % cream Apply topically 3 (three) times a day. Apply to affected area three times daily 30 g 0 Active cefUROXime (CEFTIN) 500 MG tablet Take 1 tablet (500 mg total) by mouth 2 (two) times a day. Take as directed or until you run out 14 tablet 0 Active furosemide (LASIX) 20 MG tablet Take 2 tablets (40 mg total) by mouth daily. 28 tablet 0 Active Family History Medical History Relation Name Comments Asthma Mother Cancer Mother Hypertension Mother Relation Name Status Comments Mother Social History Tobacco Use Types Packs/Day Years Used Date Smoking Tobacco: Never Smokeless Tobacco: Never Alcohol Use Standard Drinks/Week Comments Yes 0 (1 standard drink = 0.6 oz pur e alcohol) occasionally Sex and Gender Information Value Date Recorded Sex Assigned at Not on file Legal Sex Male 7:51 PM EDT Gender Identity Not on file Sexual Orientation Not on file Last Filed Vital Signs Vital Sign Reading Time Taken Comments Blood Pressure 166/93 09/04/2019 5:28 PM EDT Pulse 82 09/04/2019 5:28 PM EDT Temperature 36.9 ??C (98.4 ??F) 09/04/2019 3:43 PM ED T Respiratory Rate 22 09/04/2019 5:28 PM EDT Oxygen Saturation 96% 09/04/2019 5:28 PM EDT Inhaled Oxygen Concentration - - Weight - - Height - - Body Mass Index - - Plan of Treatment Health Maintenance Due Date Last Done Comments Hepatitis C Virus Screening 1970 HIV Screening 01/06/1985 DTaP/Tdap/Td Vaccines (1 - Tdap) 01/06/1991 Hepatitis B Vaccines (1 of 3 - 19+ 3-dose series) 01/06/1991 Pneumococcal Vaccines 50+ (1 of 1 - PCV) 01/06/2022 Zoster (Shingles) Vaccine (1 of 2) 01/06/2022 COVID-19 Vaccine (2 - 2023-2 5 season) 2023 07/10/2020 Pneumococcal Vaccine: Pediat michael (0-5 Years) and At-Risk Patients (6 to 49 Years) Aged Out No longer eligible b ased on patient's age to complete this topic Care Teams Diesel Engine Mechanic Relationship Specialty Start Date End Date Pcp, No PCP - General General Medicine 06/05/19
--- OUTSIDE RECORDS SUMMARY | 2024-07-13 13:31 | XMS_ITS | Clinical Summary ---
Author Organization [facility] Address [address] [place] [address] Phone Care Team Providers Care Pipe Liner Name Role Phone Mathew Chirinos STUDENT Primary Care Provider Unav ailable Allergies No known active allergies Medications Miscellaneous Medical Supply Misc 1 large blood pressure cuff. 1 each 7 Active Miscellaneous Medical Supply Misc 1 left and 1 right wrist splint. 1 each 7 Active nystatin-triamc inolone (MYCOLOG II) 100,000 unit/g-0.1% cream Apply topically daily. Apply to foreskin and stretch foreskin over glans daily. 1 g 2 Active cetirizine (ZYRTEC) 10 mg tablet Take 1 tablet (10 mg total) by mouth daily as needed for allergies. Active losartan (COZAAR) 50 mg tablet Take 1 tablet (50 mg total) by mouth daily. 30 tablet 06/29/2022 10:54 AM EDT 3 Active albuterol sulfate (PROVENTIL HFA) 90 mcg/actuation HFA aerosol inhaler Inhale 2 puffs into the lungs every 6 (six) hours as needed for wheezing or shortness of breath (may increase to q4 hours prn) for up to 7 days. 6.7 g 06/29/2022 10:54 AM EDT 3 Active calcipotriene (DOVONOX) 0.005 % ointment Apply topically 2 (two) times daily. 120 g 2 06/29/2022 11:06 AM EDT 3 Active mometasone (ELOCON) 0.1 % creamIndication s:plaque psoriasis Apply topically 2 (two) times daily (0800, 1800). 45 g 1 3 Active clotrimazole (LOTRIMIN) 1 % cream Apply topically 2 (two) times daily. 60 g 3 Active Active Problems Problem Noted Date Diagnosed Date Cellulitis of right lower extremity 06/28/2022 Prediabetes 05/30/2021 Hypertension 05/28/2021 Psoriasis 03/06/2016 Resolved Problems Problem Noted Date Diagnosed Date Resolved Date Elevated liver function tests 08/27/2016 05/28/2021 Family History Relation Name Status Comments Father Other Mother Alive Social History Tobacco Use Types Packs/Day Years Used Date Smoking Tobacco: Never Smokeless Tobacco: Never Alcohol Use Standard Drinks/Week Comments No 0 (1 standard drink = 0.6 oz pur e alcohol) AUDIT-C Answer Date Recorded Q1: How often do you have a drink containing alc ohol? Monthly or less 06/28/2022 Q2: How many drinks containi ng alcohol do you have on a typical day when you are drinking? 1 or 2 06/28/2022 Q3: How often do you have si x or more drinks on one occasion? Never 06/28/2022 Overall Financial Resource Strain (CARDIA) Answe r Date Recorded How hard is it for you to pa y for the very basics like food, housing, medical care, and heating? Somewhat hard 11/23/2022 PHQ-2 Answer Date Recorded PHQ-2 Total Score 1 06/28/2022 Hunger Vital Sign Answer Date Recorded Within the past 12 months, y ou worried that your food would run out before you got the money to buy more. Never true 11/24/19 23 Within the past 12 months, t he food you bought just didn't last and you didn't have money to get more. Never true 11/23/2022 PRAPARE - Transportation Answer Date Re corded In the past 12 months, has l ack of transportation kept you from medical appointments or from getting medications? No 10/28 In the past 12 months, has l ack of transportation kept you from meetings, work, or from getting things needed for daily living? No 11/23/2022 Housing Stability Answer Date Recorded What is your living situation today? I have a [place] [address] place to live 11/23/2022 Interpersonal Safety Answer Date Record ed Is there anyone in your life that is hurting or threatening you in anyway? Not on file 06/28/2022 Physical Indicators of Abuse No evidence of phys ical abuse 06/28/2022 Sex and Gender Information Value Date Recorded Sex Assigned at Male 05/15/2021 3:51 PM EST Legal Sex Male 9:31 PM EDT Gender Identity Male 06/17/2020 4:08 PM EDT Sexual Orientation Straight 06/17/2020 4: 08 PM EDT Last Filed Vital Signs Vital Sign Reading Time Taken Comments Blood Pressure 169/94 01/13/2023 10:34 PM EDT Pulse 83 01/13/2023 10:34 PM EDT Temperature 36.7 ??C (98.1 ??F) 01/13/2023 1 0:34 PM EDT Respiratory Rate 21 01/13/2023 10:3 4 PM EDT Oxygen Saturation 94% 01/13/2023 10: 34 PM EDT Inhaled Oxygen Concentration - - Weight 168.5 kg (371 lb 5.8 oz) 11/23/2022 4:07 PM EDT Height 180.3 cm (5' 11 ) 06/28/2022 6:52 AM EDT Body Mass Index 51.79 06/28/2022 6:52 AM EDT Plan of Treatment Health Maintenance Due Date Last Done Comments Tetanus adult (Td q 10,TDAP once) 1992 Colon cancer screening,FIT/FOBT,Annual 01/06/2017 Pneumococcal Vaccine (50+ years) (1 of 1 - PCV) 01/06/2022 Shingles vaccine (Shingrix) (1 of 2 - Shingrix (RZV) 2 Dose Standard Series) 01/06/2022 Prediabetes Surveillance 05/29/2022 05/29/2021, 0210/2016 Covid-19 vaccine series ( season) 2023 03/20/2021, 07/31/2020, 07/10/2020 Influenza vaccine 11/27/2024 Diabetes screening 01/13/2026 01/13/2023, 0 11/23/2022, 08/26/2022, Additional history exists Lipid disorder screening 05/29/2026 05/29/2021, 10/2016 RSV Immunization (1 - 1-dose 75+ series) 01/06/2047 HIV screening Completed 05/06/2016 Hepatitis C screening Completed 05/06/2016 Colon cancer screening, Colonoscopy Discontinued Meningococcal Vaccine Aged Out No leeann jason eligible based on patient's age to complete this topic Medical Devices Implanted Type Area Paperhanger Contractor Device Identifier Shelf Expiration Date Model / Serial / Lot Patch Ventralex Hernia Circ - [id number] Implanted:01/2017 by Uriel Ko MD at [address] (Quantity not on file) Other-im plant Midline: [employer] (HAYES[employer]ZZZZ) 12/24/2018 [id number] / / [id number] Procedures Procedure Name Priority Date/Time Associated Diagnosis Comments BASIC METABOLIC PANEL STAT 01/13/2023 10:47 PM EDT LIPID PANEL Routine 05/29/2021 11:43 AM EST Obesity, unspecified classification, unspecified obesity type, unspecified whether serious comorbidity present HEMOGLOBIN A1C Routine 05/29/2021 11:43 AM EST Obesity, unspecified classification, unspecified obesity type, unspecified whether serious comorbidity present HIV-1/HIV-2 ANTIBODY/ANTIGEN SCREEN W/REFLEX ( GH LMW H) Routine 05/06/2016 11:51 AM EST Healthcare maintenance HEPATITIS C AB WITH REFLEX TO HCV PCR Routine 05/06/2016 11:51 AM EST Transaminitis from Last 3 Months or Most Recently Relevant to Health Maintenance Results * Basic metabolic panel (01/13/2023 10:47 PM EDT) Sodium 139 136 - 144 mmol/L 01/13/2023 11:23 PM EDT [facility] Potassium 3.8 3.3 - 5.3 mmol/L 01/13/2023 11:23 PM EDT [facility] Chloride 100 98 - 107 mmol/L 01/13/2023 11:23 PM EDT [facility] CO2 27 20 - 30 mmol/L 01/13/2023 11:23 PM EDT [facility] Anion Gap 12 7 - 17 01/13/2023 11:23 PM EDT [facility] Glucose 100 70 - 100 mg/dL 01/13/2023 11:23 PM EDT [facility] BUN 8 6 - 20 mg/dL 01/13/2023 11:23 PM EDT [facility] Creatinine 0.90 0.40 - 1.30 mg/dL 01/13/2023 11:23 PM EDT [facility] Calcium 9.4 8.8 - 10.2 mg/dL 01/13/2023 11:23 PM T [facility] BUN/Creatinine Ratio 8.9 8.0 - 23.0 01/13/2023 11:23 PM T [facility] eGFR (Creatinine) >60 >=60 mL/min/1.7 3m2 01/13/2023 11:23 PM T [facility] Comment: Values < 60 mL/min/1.73 m2 may indicate CKD if present for more than three months AND creatinine is at steady state. The eGFR provides a rough estimate of kidney function. On 11/11/21 all [facility] and [facility] began using a grw-icop-cuubd formula for estimating GFR called CKD-EPI Creatinine 2020. This equation reports eGFR based on creatinine, patient age, clinical sex, and is standardized to a body surface area of 1.73 m2. For the same creatinine, this new race-free eGFR will be lower than prior reported Black eGFR results and higher than prior Non-Black eGFR results. For further guidance, please refer to the CKD: Adult Creative Director Signature pathway. Blood Venipuncture / Unknown 01/13/2023 10:47 PM EDT 01/13/2023 10:53 PM EDT Jessika Guardado MD LAB BLOOD ORDERABLES Final Resul t Performing Organization Address City/[facility]/ZIP Co de Phone Number [facility] [place], [place] [address] [phone] * (ABNORMAL) Hemoglobin A1c (05/29/2021 11:43 AM EST) Hemoglobin A1c 5.9(H) 4.0 - 5.6 % 05/29/2021 5:58 PM EST [facility] DEPART[facility] OF [facility]ORATORY MEDICINE Comment: Hemoglobin A1c values of 5.7-6.4 % identify individuals with an increased risk for future diabetes and to whom the term pre-diabetes may be applied. ??Hemoglobin A1c values greater than 6.4% on more than one occasion are diagnostic of diabetes. Lowering HbA1c to below 7% is considered to reduce microvascular and neuropathic complications of diabetes. This boronate affinity Hb A1c method provides accurate analytical results in the presence of nearly all Hb variants. Hb F higher than 10% of total Hb may yield falsely low results. Conditions that shorten red cell survival, such as the presence of unstable hemoglobins like Hb SS, Hb CC, and Hb SC, or other causes of hemolytic anemia may yield falsely low results. Iron deficiency anemia may yield falsely high results. Estimated Average Glucose mg/dL 123 mg/dL 05/29/2021 5:58 PM EST [facility] DEPART[facility] OF [facility]OR[facility]ORY MEDICINE Comment: Estimated average glucose (eAG) is a calculated value designed to estimate ??the expected average blood glucose level throughout the day from a single ??measurement of ??glycated hemoglobin A1C (HbA1c) and follows the calculation proposed by the [place] [employer] (Diabetes Care 31: 1-6, 2008). It may have less accuracy in children, women and patients with certain erythrocyte disorders. Blood Venipuncture / Unknown 05/29/2021 11:43 AM EST 05/29/2021 11:43 AM EST Lizzy Mcleod MD LAB BLOOD ORDERABLES Final Result [facility] DEPARTMENT OF LABORATORY MEDICINE [address] [place] [id number] [phone] * (ABNORMAL) Lipid panel (05/29/2021 11:43 AM EST) Cholesterol 188 See Comment mg/dL 05/29/2021 2:28 PM [facility] Comment: Total Cholesterol (mg/dL) ?Adults (>18 years) ? Children (<18 years) Desirable ?<200 ? <170 Borderline-High ?200-239 ?170-199 High ? >=240 ?>=200 ? HDL 59 >=40 mg/dL 05/29/2021 2:28 PM [facility] Triglycerides 142 See Comment mg/dL 05/29/2021 2:28 PM EST [facility] Comment: Triglycerides (mg/dL) ?Adults (>18 years) ? Children (<18 years) Desirable ?<150 ? Not Established Borderline-High ?150-199 ?Not Established High ? 200-499 ?Not Established ?? Chol/HDL Ratio 3.2 0.0 - 5.0 05/29/2021 2:28 PM EST [facility] LDL Calculated 101(H) See Comment mg/dL 05/29/2021 2:28 PM [facility] Comment: LDL Cholesterol (mg/dL) ?Adults (>18 years) ? Children (<18 years) Desirable ?<100 ? <110 Above Desirable ?100-129 ?Not Established Borderline-High ?130-159 ?110- 129 High ? 160-189 ?>=130 Very High? >=190 ? Not Established Blood Venipuncture / Unknown 05/29/2021 11:43 AM EST 05/29/2021 11:43 AM EST Lizzy Mcleod MD LAB BLOOD ORDERABLES Final Result Performing Organization Address [facility] de Phone Number [facility] [address] [place] [address], [facility] [phone] * HIV-1/HIV-2 antibody/antigen screen w/reflex ( GH LMW YH) (05/06/2016 11:51 AM EST) Pathologist [facility] HIV 1 and 2 Antibody/Antigen Screen Negative Negative 05/06/2016 3:16 PM EST [facility] Comment:Interpretation: This specimen is HIV antibody negative. A negative test does not exclude the possibility of infection with HIV. Negative results may be seen in early infection, advanced AIDS and agammaglobulinemic patients. If suspicion is high, submit a sample for HIV nucleic acid testing. Blood specimen (specimen) Venipuncture / Unknown 05/06/2016 11:51 AM EST 05/06/2016 12:26 PM EST Lindy Nino MD LAB BLOOD ORDERABLES Final Re sult Performing Organization Address [facility] Co de Phone Number [facility] [address] [place] [address], [facility] [phone] * Hepatitis C antibody (05/06/2016 11:51 AM EST) Pathologist [facility] Hepatitis C Antibody Negative Negative 05/07/2016 10:58 AM EST [facility] Comment:A negative result do es not exclude HCV infection, since antibodies are not detectable for 4-8 weeks after initial infection, or may not develop in compromised hosts. In high-risk individuals, repeat antibody testing in 2 months and/or HCV RNA PCR should be considered. Blood specimen (specimen) Venipuncture / Unknown 05/06/2016 11:51 AM EST 05/06/2016 12:26 PM EST us Lindy Nino MD LAB BLOOD ORDERABLES Final Re sult Performing Organization Address City/State/[facility] Co de Phone Number [facility] [address] [place] [address], [facility] [phone] from Last 3 Months or Most Recently Relevant to Health Maintenance Advance Directives * Full Code (Latest Code Status on File) Date Activated Date Inactivated Comments 06/28/2022 2:51 AM 06/29/2022 5:27 PM Question Answer Comments With Whom was the Code Status Discussed? Patient Care Teams Pipe Liner Relationship Specialty Start Date End Date Mathew Chirinos, STUDENT PCP - General 06/20/24
--- OUTSIDE RECORDS SUMMARY | 2024-07-13 13:31 | XMS_ITS | Encounter Summary ---
Author Organization [facility] Address [address] [place] [address] Care Team Providers Care College Scouting Coordinator Name Role Phone Mathew Chirinos Primary Care Provider Unav ailable Encounter Details Date Type Department Care Team (Late st Contact Info) Description 06/02/[address] [address] Ubaldo Wang, STUDENT Social History Tobacco Use Types Packs/Day Years [...] encounter Miscellaneous Notes * Telephone Encounter - Toya Trammell PCT - 06/03/2021 11:38 AM EST Prepped Prior Auth and sent to PCP * Telephone Encounter - Will Willoughby - 06/02/2021 4:02 PM EST Patient is requesting pre auth for budesonide-formoteroL (SYMBICORT) 160-4.5 mcg/actuation HFA aerosol inhaler and betamethasone dipropionate (DIPROLENE) 0.05 % cream. Call back is [phone] documented in this encounter Plan of Treatment [...] documented as of this encounter Care Teams College Scouting Coordinator Relationship Specialty Start Date End Date Mathew Chirinos, STUDENT PCP - General 06/20/24 documented as of this encounter
== END 2024-07-13 11:50 | disposition home or self-care (01) ==
LOC: HO.HMCH 11:02
PROVIDERS: PCP Physician Assistant; Visit Provider Physician Assistant
DX: I10 Essential (primary) hypertension (principal); E66.813 Obesity, class 3; Z68.43 Body mass index [BMI] 50.0-59.9, adult; I87.2 Venous insufficiency (chronic) (peripheral); L40.9 Psoriasis, unspecified

== ENCOUNTER 2024-07-13 11:02 | Outpatient (REF) | payer OTHER, SELFPAY ==
[2024-07-13 13:33] LABS: Hematocrit 40.6 % (42.0-52.0); Hemoglobin 13.1 g/dl (14.0-18.0); Mean Corpuscular HGB Conc 32.3 g/dl (31.0-36.0); Mean Corpuscular Hemoglobin 28.2 pg (27.0-33.0); Mean Corpuscular Volume 87.5 fL (80.0-98.0); Mean Platelet Volume 10.2 fL (9.4-12.4); Platelet Count 284 X10*3/uL (160-400); Red Blood Count 4.64 X10*6/uL (4.60-5.80); White Blood Count 7.4 X10*3/uL (4.8-10.8)
[2024-07-13 14:05] LABS: Alanine Aminotransferase 18 U/L (0-40); Albumin Level 3.9 g/dL (3.5-5.0); Anion Gap 11 (12-20); Aspartate Amino Transferase 19 U/L (5-37); Bilirubin Total 0.5 mg/dL (0.0-1.0); Blood Urea Nitrogen 11 mg/dL (9-16); Calcium 8.8 mg/dL (8.4-10.2); Carbon Dioxide 28 mmol/L (22-29); Chloride 105 mmol/L (96-108); Estimated Glomerular Filt Rate > 60; Glucose Fasting 99 mg/dL (60-99); Potassium 4.2 mmol/L (3.3-5.1); Sodium 140 mmol/L (135-145); Total Protein 7.8 g/dL (6.5-8.0)
[2024-07-13 14:25] LABS: Alkaline Phosphatase 67 U/L (39-117)
--- OUTSIDE RECORDS SUMMARY | 2024-07-13 14:55 | XMS_ITS | Encounter Summary ---
Author Organization [facility] Address [address] [place] [address] Care Team Providers Care Hand Molder Meat Name Role Phone Mathew Chirinos STUDENT Primary Care Provider Unav ailable Encounter Details Date Type Department Care Team (Late st Contact Info) Description 05/07/[address] [facility] Specimens [address] [place], [place] [id number] Gwendolyn Whitmore MD [address] [place] [address] Frequency of micturition Social History [...] - 52.0 % 05/07/2016 3:16 PM EST [facility] MCV 87.1 78.0 - 94.0 fL 05/07/2016 3:16 PM EST [facility] Blood specimen (specimen) 05/06/2016 12:26 PM EST 05/07/2016 3:14 PM EST us Gwendolyn Whitmore MD LAB BLOOD ORDERABLES Final Resu lt [facility] [address] [place] [id number] documented in this encounter Visit Diagnoses Diagnosis [...] documented as of this encounter Care Teams Hand Molder Meat Relationship Specialty Start Date End Date Mathew Chirinos, STUDENT PCP - General 06/20/24 documented as of this encounter
--- OUTSIDE RECORDS SUMMARY | 2024-07-13 14:55 | XMS_ITS | Encounter Summary ---
Author Organization [facility] Address [address] [place] [id number] Care Team Providers Care Cargo Worker Name Role Phone Mathew Chirinos STUDENT Primary Care Provider Unav ailable Encounter Details Date Type Department Care Team (Late st Contact Info) Description 05/07/2016 Lab Requisition [facility] Specimens [address] [place], [place] [phone] Social History Tobacco Use Types Packs/Day Years [...] documented as of this encounter Care Teams Cargo Worker Relationship Specialty Start Date End Date Mathew Chirinos, STUDENT PCP - General 06/20/24 documented as of this encounter
--- OUTSIDE RECORDS SUMMARY | 2024-07-13 14:56 | XMS_ITS | Encounter Summary ---
Author Organization [facility] Address [address] [place] [address] Care Team Providers Care Loader Operator Supervisor Name Role Phone Mathew Chirinos STUDENT Primary Care Provider Unav ailable Encounter Details Date Type Department Care Team (Late st Contact Info) Description 07/01/2021 Refill [facility] [employer] [address] [employer] [place], [place] [address] Chicho Anaya, KAYLEE [address] [place], [place] [phone] Social History Tobacco Use Types Packs/Day Years [...] documented as of this encounter Care Teams Loader Operator Supervisor Relationship Specialty Start Date End Date Mathew Chirinos, STUDENT PCP - General 06/20/24 documented as of this encounter
--- OUTSIDE RECORDS SUMMARY | 2024-07-13 14:56 | XMS_ITS | Encounter Summary ---
Author Organization [facility] Address [address] [place] [address] Care Team Providers Care Media Center Director School Name Role Phone Mathew Chirinos STUDENT Primary Care Provider Unav ailable Reason for Visit * Reason Comments Medication Refill Encounter Details Date Type Department Care Team (Late st Contact Info) Description 05/29/2021 Refill [facility] [employer] [address] [employer] [address] [place], [place] [phone] Lizzy Mcleod MD [address] [place] [address] Medication Refill Social History Tobacco Use [...] documented as of this encounter Care Teams Media Center Director School Relationship Specialty Start Date End Date Mathew Chirinos, STUDENT PCP - General 06/20/24 documented as of this encounter
--- OUTSIDE RECORDS SUMMARY | 2024-07-13 14:56 | XMS_ITS | Clinical Summary ---
Author Organization [facility] Address [address] [place] [address] Phone Care Team Providers Care Breaker Layer Name Role Phone Mathew Chirinos STUDENT Primary [...] this topic Medical Devices Implanted Type Area Solid Waste Facility Supervisor Device Identifier Shelf Expiration Date Model / Serial / Lot Patch Ventralex Hernia Circ - [id number] Implanted:01/2017 by Uriel Ko MD at [address] (Quantity not on file) Other-im plant Midline: [employer] ([employer]AYES[employer]ZZ[employer]) 12/24/2018 [id number] / / [id number] Procedures Procedure Name Priority Date/Time Associated Diagnosis [...] - 144 mmol/L 01/13/2023 11:23 PM EDT [facility] Potassium 3.8 3.3 - 5.3 mmol/L 01/13/2023 11:23 PM EDT [facility] Chloride 100 98 - 107 mmol/L 01/13/2023 11:23 PM EDT [facility] CO2 27 20 - 30 mmol/L 01/13/2023 11:23 PM EDT [facility] Anion Gap 12 7 - 17 01/13/2023 11:23 PM EDT [facility] Glucose 100 70 - 100 mg/dL 01/13/2023 11:23 PM EDT [facility] BUN 8 6 - 20 mg/dL 01/13/2023 11:23 PM EDT [facility] Creatinine 0.90 0.40 - 1.30 mg/dL 01/13/2023 11:23 PM EDT [facility] Calcium 9.4 8.8 - 10.2 mg/dL 01/13/2023 11:23 PM T [facility] BUN/Creatinine Ratio 8.9 8.0 - 23.0 01/13/2023 11:23 PM T [facility] eGFR (Creatinine) >60 >=60 mL/min/1.7 3m2 01/13/2023 11:23 PM T [facility] Comment: Values < 60 mL/min/1.73 m2 may indicate CKD if present for more than three months AND creatinine is at steady state. The eGFR provides a rough estimate of kidney function. On 11/11/21 all [facility] and [facility] began using a aax-qquj-bwxte formula for estimating GFR called CKD-EPI Creatinine 2020. This equation reports eGFR based on creatinine, patient age, clinical sex, and is standardized to a body surface area of 1.73 m2. For the same creatinine, this new race-free eGFR will be lower than prior reported Black eGFR results and higher than prior Non-Black eGFR results. For further guidance, please refer to the CKD: Adult Catalytic Converter Operator Signature pathway. Blood Venipuncture / Unknown 01/13/2023 10:47 PM EDT 01/13/2023 10:53 PM EDT Jessika Guardado MD LAB BLOOD ORDERABLES Final Resul t Performing Organization Address City/[facility]/ZIP Co de Phone Number [facility] [place], [place] [address] [phone] * (ABNORMAL) Hemoglobin A1c (05/29/2021 11:43 AM EST) Hemoglobin A1c 5.9(H) 4.0 - 5.6 % 05/29/2021 5:58 PM EST [facility] Comment: Hemoglobin A1c [...] mg/dL 123 mg/dL 05/29/2021 5:58 PM EST [facility] Comment: Estimated average glucose (eAG) is a calculated value designed to estimate ??the expected average blood glucose level throughout the day from a single ??measurement of ??glycated hemoglobin A1C (HbA1c) and follows the calculation proposed by the [place] Diabetes Association (Diabetes Care 31: 1-6, 2008). It may have less accuracy in children, women and patients with certain erythrocyte disorders. Blood Venipuncture / Unknown 05/29/2021 11:43 AM EST 05/29/2021 11:43 AM EST Lizzy Mcleod MD LAB BLOOD ORDERABLES Final Result [facility] [address] [place] [address] [phone] * (ABNORMAL) Lipid panel (05/29/2021 11:43 AM EST) Cholesterol 188 See Comment mg/dL 05/29/2021 2:[address] [facility] Comment: Total Cholesterol (mg/dL) ?Adults (>18 years) ? Children (<18 years) Desirable ?<200 ? <170 Borderline-High ?200-239 ?170-199 High ? >=240 ?>=200 ? HDL 59 >=40 mg/dL 05/29/2021 2:[address] [facility] Triglycerides 142 See Comment mg/dL 05/29/2021 2:28 PM EST [facility] Comment: Triglycerides (mg/dL) ?Adults (>18 years) ? Children (<18 years) Desirable ?<150 ? Not Established Borderline-High ?150-199 ?Not Established High ? 200-499 ?Not Established ?? Chol/HDL Ratio 3.2 0.0 - 5.0 05/29/2021 2:28 PM EST [facility] LDL Calculated 101(H) See Comment mg/dL 05/29/2021 2:[address] [facility] Comment: LDL Cholesterol (mg/dL) ?Adults (>18 years) ? Children (<18 years) Desirable ?<100 ? <110 Above Desirable ?100-129 ?Not Established Borderline-High ?130-159 ?110- 129 High ? 160-189 ?>=130 Very High? >=190 ? Not Established Blood Venipuncture / Unknown 05/29/2021 11:43 AM EST 05/29/2021 11:43 AM EST Lizzy Mcleod MD LAB BLOOD ORDERABLES Final Result Performing Organization Address [facility] de Phone Number [facility] [address] [place] [address], [facility] [phone] * HIV-1/HIV-2 antibody/antigen screen w/reflex ( GH LMW YH) (05/06/2016 11:51 AM EST) Pathologist [facility] HIV 1 and 2 Antibody/Antigen Screen Negative Negative 05/06/2016 3:16 PM EST [facility] Comment:Interpretation: This specimen is HIV [...] ORDERABLES Final Re sult Performing Organization Address [facility] Co de Phone Number [facility] [address] [place] [address], [facility] [phone] * Hepatitis C antibody (05/06/2016 11:51 AM EST) Pathologist [facility] Hepatitis C Antibody Negative Negative 05/07/2016 10:58 AM EST [facility] Comment:A negative result do es [...] ORDERABLES Final Re sult Performing Organization Address City/State/[facility] Co de Phone Number [facility] [address] [place] [address], [facility] [phone] from Last 3 Months or Most Recently Relevant to Health Maintenance Advance Directives * Full Code (Latest Code Status on File) Date Activated Date Inactivated Comments 06/28/2022 2:51 AM 06/29/2022 5:27 PM Question Answer Comments With Whom was the Code Status Discussed? Patient Care Teams Breaker Layer Relationship Specialty Start Date End Date Mathew Chirinos, STUDENT PCP - General 06/20/24
--- OUTSIDE RECORDS SUMMARY | 2024-07-13 14:56 | XMS_ITS | Encounter Summary ---
Author Organization [facility] Address [address] [place] [address] Care Team Providers Care Permit Agent Name Role Phone Mathew Chirinos Primary Care Provider Unav ailable Encounter Details Date Type Department Care Team (Late st Contact Info) Description 06/02/[address] [address] Ubaldo Wang, STUDENT Social History Tobacco Use [...] (DIPROLENE) 0.05 % cream. Call back is [phone] documented in this encounter Plan of Treatment [...] documented as of this encounter Care Teams Permit Agent Relationship Specialty Start Date End Date Mathew Chirinos, STUDENT PCP - General 06/20/24 documented as of this encounter
--- OUTSIDE RECORDS SUMMARY | 2024-07-13 14:56 | XMS_ITS | Encounter Summary ---
Author Organization [facility] Address [address] [place] [address] Care Team Providers Care Wafer Fab Technician Name Role Phone Mathew Chirinos STUDENT Primary Care Provider Unav ailable Reason for Visit * Reason Comments Medication Problem Encounter Details Date Type Department Care Team (Late st Contact Info) Description 06/30/[address] [address] Ubaldo Wang, STUDENT Medication Problem Social History [...] documented as of this encounter Care Teams Wafer Fab Technician Relationship Specialty Start Date End Date Mathew Chirinos, STUDENT PCP - General 06/20/24 documented as of this encounter
--- OUTSIDE RECORDS SUMMARY | 2024-07-13 14:56 | XMS_ITS | Clinical Summary ---
Author Organization [facility] Address [address] [place] [address] Care Team Providers Care Profiling Machine Set Up Operator Tool Name Role Phone Pcp, No Primary Care [...] age to complete this topic Care Teams Profiling Machine Set Up Operator Tool Relationship Specialty Start Date End Date Pcp, No PCP - General General Medicine 06/05/19
--- OUTSIDE RECORDS SUMMARY | 2024-07-13 14:56 | XMS_ITS | Encounter Summary ---
Author Organization [facility] Address [address] [place] [address] Care Team Providers Care Sandwich Wrapper Name Role Phone ChirinosRaine nicolasshua STUDENT Primary Care Provider Unav ailable Reason for Visit * Reason Comments Medication Problem Other Encounter Details Date Type Department Care Team (Late st Contact Info) Description 07/04/2021 Refill [facility] [address] [place] [address] [place], STUDENT Medication Problem; Other Social History [...] nystatin-triamcinolone (MYCOLOG II) 100,000 unit/g-0.1% cream, utilizes [id number] [place], [place] [address] [facility] [address] ( ) contact number [phone] documented in this encounter Plan of Treatment [...] documented as of this encounter Care Teams Sandwich Wrapper Relationship Specialty Start Date End Date Mathew Chirinos, STUDENT PCP - General 06/20/24 documented as of this encounter
--- OUTSIDE RECORDS SUMMARY | 2024-07-13 14:56 | XMS_ITS | Encounter Summary ---
Author Organization [facility] Address [address] [place] [address] Care Team Providers Care Car Retarder Operator Name Role Phone Mathew Chirinos STUDENT Primary Care Provider Unav ailable Reason for Visit * Reason Comments Other Encounter Details Date Type Department Care Team (Late st Contact Info) Description 07/23/2021 Telephone [facility] [address] [place] [address] Ubaldo Wang, STUDENT Other Social History Tobacco [...] call back . Patient canbe reached at [phone] documented in this encounter Plan of Treatment [...] documented as of this encounter Care Teams Car Retarder Operator Relationship Specialty Start Date End Date Mathew Chirinos, STUDENT PCP - General 06/20/24 documented as of this encounter
== END 2024-07-13 11:03 | disposition home or self-care (01) ==
LOC: HO.LAB 11:02
PROVIDERS: PCP Physician Assistant; Visit Provider Physician Assistant
DX: I10 Essential (primary) hypertension (principal); I87.2 Venous insufficiency (chronic) (peripheral); E66.813 Obesity, class 3; L40.9 Psoriasis, unspecified; Z79.899 Other long term (current) drug therapy
CPT/HCPCS: 36415; 80053; 85027; 99212

== ENCOUNTER 2024-08-09 12:31 | Outpatient (AMB) | payer OTHER, SELFPAY ==
--- NOTE | 2024-08-09 12:36 | MHC.OFFVIS ---
Intake Visit Reasons: Lymphedema Clinic Intake Note: Patient presents for lymphedema clinic. No complaints. Accompanied by: Self / Same As Patient Allergies No Known Allergies Allergy (Verified 08/09/24 12:43) [facility] HPI Lymphedema Clinic: Details: Joseph is presenting today for our lymphedema clinic for ongoing bilateral lower extremity swelling and pain with cellulitis and venous stasis dermatitis. He has been on several rounds of abx as well as steroids and it has never cleared up. He states the Prednisone has been helping a little but the swelling and pain continues. He has no new concerns today. [facility] Medical History Lymphedema Asthma Erythema Essential hypertension Stasis dermatitis of both legs Anemia Morbid obesity Psoriasis Social History Household Members: Family Household Members Other:: Son and daughter in law Housing: House Do you presently have visiting nurse or other home services: No Alcohol intake: former Patient Tobacco Use Status: Never used Tobacco e-Cigarette/Vaping Use: Never Used service: No Cognitive needs: No Hearing needs: No Vision needs: No Review of Systems Const Reports as per HPI and Denies weakness ENT Reports Normal hearing present and Denies dizziness Card Reports as per HPI, Denies chest pain, Denies chest pain at rest, Denies chest pain with activity, Denies dyspnea and Denies dyspnea on exertion Resp Reports as per HPI, Denies cough, Denies dyspnea and Denies dyspnea on exertion GI Reports as per HPI, Denies abdominal pain, Denies nausea and Denies vomiting Musc Denies numbness Skin/Breast Reports as per HPI, Denies erythema and Denies wounds Neuro Reports Normal hearing present, Denies dizziness, Denies numbness, Denies Sensory deficit (Neuro) and Denies weakness Psych Reports no additional complaints Endo Reports no additional complaints Physical Exam Neuro Cranial nerves: Yes Normal hearing present Sensory Exam: No Sensory deficit (Neuro) Extrem Other: Bilateral lower extremities: deep erythematous discoloration noted circumferentially from the tibial plateau to the toes. Hyperplasia, hyperkeratosis, and slight lymphorrhea noted. +3 pitting edema noted. Faint but palpable DP pulses noted, due to edema. Assessment & Plan Assessment & Plan (1) Lymphedema: Code(s): I89.0 - Lymphedema, not elsewhere classified Category: Medical Plan: Joseph is presenting today for our lymphedema clinic. He continues with bilateral lower extremity swelling, discomfort, and pain with venous stasis dermatitis. 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 Due to the truncal lymphedema along with lymphorrhea, hyperkeratosis, and hyperpigmentation, the basic pump will not be clinically appropriate for the patient. They have had more than 3 months, starting on 03/16/23, of conservative treatments with elevation, compression stockings daily use with 20-30mmHg, and physical activity with minimal relief. They continue to have persistent symptoms despite conservative treatments. They are presenting with hyperpigmentation, lymphorrhea, hyperkeratosis, and 3+ pitting edema. It appears that they has stage II lymphedema. David from [employer] will be fitting them for a pneumatic compression device, which will get mailed to their house. The patient has lymphedema that extends to his upper thigh and abdominal region. The basic pneumatic compression device is not adequate for the patient; it has been trialed but is not clinically appropriate due to the extensive lymphedema noted. The advanced compression device will be the best in this case. Thank you allowing us to care for the patient. Coding Level of Care Code Est Pt Level 4 (96609) Diagnoses Lymphedema I89.0
--- OUTSIDE RECORDS SUMMARY | 2024-08-09 12:57 | XMS_ITS | Encounter Summary ---
Author Organization [facility] Address [address] [place] [address] Care Team Providers Care Guidance Services Coordinator Name Role Phone Mathew Chirinos Primary Care Provider Unav ailable Encounter Details Date Type Department Care Team (Late st Contact Info) Description 06/02/[address] [address] Ubaldo Wang, STUDENT Social History Tobacco Use [...] encounter Miscellaneous Notes * Telephone Encounter - oTya Trammell PCT - 06/03/2021 11:38 AM EST Prepped Prior Auth and sent to PCP * Telephone Encounter - Will Willoughby - 06/02/2021 4:02 PM EST Patient is requesting pre auth for budesonide-formoteroL (SYMBICORT) 160-4.5 mcg/actuation HFA aerosol inhaler and betamethasone dipropionate (DIPROLENE) 0.05 % cream. Call back is [phone] documented in this encounter Plan of Treatment [...] documented as of this encounter Care Teams Guidance Services Coordinator Relationship Specialty Start Date End Date Mathew Chirinos, STUDENT PCP - General 06/20/24 documented as of this encounter
--- OUTSIDE RECORDS SUMMARY | 2024-08-09 12:57 | XMS_ITS | Encounter Summary ---
Author Organization [facility] Address [address] [place] [address] Care Team Providers Care Make Up Artist Name Role Phone Mathew Chirinos STUDENT Primary Care Provider Unav ailable Encounter Details Date Type Department Care Team (Late st Contact Info) Description 05/07/[address] [facility] Specimens [address] [place], [place] [id number] Social History Tobacco Use Types Packs/Day Years [...] documented as of this encounter Care Teams Make Up Artist Relationship Specialty Start Date End Date Mathew Chirinos, STUDENT PCP - General 06/20/24 documented as of this encounter
--- OUTSIDE RECORDS SUMMARY | 2024-08-09 12:57 | XMS_ITS | Clinical Summary ---
Author Organization [facility] Address [address] [place] [address] Care Team Providers Care Research Quality Assurance Analyst Name Role Phone Pcp, No Primary Care [...] (1 of 3 - 19+ 3-dose series) 12/27 Pneumococcal Vaccines 50+ (1 of 1 - PCV) 01/06/2022 Zoster (Shingles) Vaccine (1 of 2) 01/06/2022 COVID-19 Vaccine (2 - season) 2023 Care Teams Research Quality Assurance Analyst Relationship Specialty Start Date End Date Pcp, No PCP - General General Medicine 06/05/19
--- OUTSIDE RECORDS SUMMARY | 2024-08-09 12:57 | XMS_ITS | Encounter Summary ---
Author Organization [facility] Address [address] [place] [address] Care Team Providers Care Financial Sales Advisor Name Role Phone Mathew Chirinos STUDENT Primary Care Provider Unav ailable Encounter Details Date Type Department Care Team (Late st Contact Info) Description 05/07/2016 Lab Requisition [facility] Specimens [address] [place], [place] [id number] Gwendolyn Whitmore MD [address] [place] [address] Frequency of micturition Social History [...] 05/06/2016 12:26 PM EST Frequency of micturition ZZZFOLATE RBC (YH) Routine 05/06/2016 12 :26 PM EST Frequency of micturition documented in this encounter Results * Hematocrit (05/06/2016 12:26 PM EST) Hematocrit 43.3 37.0 - 52.0 % 05/07/2016 3:16 PM EST [facility] MCV 87.1 78.0 - 94.0 fL 05/07/2016 3:16 PM EST [facility] Blood specimen (specimen) 05/06/2016 12:26 PM EST 05/07/2016 3:14 PM EST us Gwendolyn Whitmore MD LAB BLOOD ORDERABLES Final Resu lt Performing Organization Address City/State/[facility] [[email or web address]] Co de Phone Number [facility] [address] [place] [phone] documented in this encounter Visit Diagnoses Diagnosis [...] documented as of this encounter Care Teams Financial Sales Advisor Relationship Specialty Start Date End Date Mathew Chirinos, STUDENT PCP - General 06/20/24 documented as of this encounter
--- OUTSIDE RECORDS SUMMARY | 2024-08-09 12:57 | XMS_ITS | Encounter Summary ---
Author Organization [facility] Address [address] [place] [address] Care Team Providers Care Travel Registered Nurse Icu Name Role Phone ChirinosRaine nicolasshua STUDENT Primary Care Provider Unav ailable Reason for Visit * Reason Comments Medication Problem Other Encounter Details Date Type Department Care Team (Late st Contact Info) Description 07/04/2021 Refill [facility] [address] [place] [address] Felipe[place]end[place], [place], STUDENT Medication Problem; Other Social History [...] nystatin-triamcinolone (MYCOLOG II) 100,000 unit/g-0.1% cream, utilizes [id number] - [place], [place] [address] [facility] [address] ( ) contact number [phone] documented in this encounter Plan of Treatment [...] documented as of this encounter Care Teams Travel Registered Nurse Icu Relationship Specialty Start Date End Date Mathew Chirinos, STUDENT PCP - General 06/20/24 documented as of this encounter
--- OUTSIDE RECORDS SUMMARY | 2024-08-09 12:57 | XMS_ITS | Encounter Summary ---
Author Organization [facility] Address [address] [place] [address] Care Team Providers Care Brick Setter Name Role Phone Mathew Chirinos STUDENT Primary Care Provider Unav ailable Reason for Visit * Reason Comments Other Encounter Details Date Type Department Care Team (Late st Contact Info) Description 07/23/2021 Telephone [facility] [address] [place] [address] Ubaldo Wang, STUDENT Other Social History Tobacco [...] call back . Patient canbe reached at [phone] documented in this encounter Plan of Treatment [...] documented as of this encounter Care Teams Brick Setter Relationship Specialty Start Date End Date Mathew Chirinos, STUDENT PCP - General 06/20/24 documented as of this encounter
--- OUTSIDE RECORDS SUMMARY | 2024-08-09 12:57 | XMS_ITS | Clinical Summary ---
Author Organization [facility] [address] [facility] Address [address] [place] [address] Phone Care Team Providers Care Candy Cutter Hand Name Role Phone Mathew Chirinos STUDENT Primary [...] this topic Medical Devices Implanted Type Area X Ray Developer Device Identifier Shelf Expiration Date Model / Serial / Lot Patch Ventralex Hernia Circ - [id number] Implanted:01/2017 by Uriel Ko MD at [address] (Quantity not on file) Other-im plant Midline: [employer] (HAYES-ZZZZ) 12/24/2018 [id number] / / [id number] Procedures Procedure Name Priority Date/Time Associated Diagnosis [...] - 144 mmol/L 01/13/2023 11:23 PM EDT [facility] Potassium 3.8 3.3 - 5.3 mmol/L 01/13/2023 11:23 PM EDT [facility] Chloride 100 98 - 107 mmol/L 01/13/2023 11:23 PM EDT [facility] CO2 27 20 - 30 mmol/L 01/13/2023 11:23 PM EDT [facility] Anion Gap 12 7 - 17 01/13/2023 11:23 PM EDT [facility] Glucose 100 70 - 100 mg/dL 01/13/2023 11:23 PM EDT [facility] BUN 8 6 - 20 mg/dL 01/13/2023 11:23 PM EDT [facility] Creatinine 0.90 0.40 - 1.30 mg/dL 01/13/2023 11:23 PM EDT [facility] Calcium 9.4 8.8 - 10.2 mg/dL 01/13/2023 11:23 PM T [facility] BUN/Creatinine Ratio 8.9 8.0 - 23.0 01/13/2023 11:23 PM T [facility] eGFR (Creatinine) >60 >=60 mL/min/1.7 3m2 01/13/2023 11:23 PM T [facility] Comment: Values < 60 mL/min/1.73 m2 may indicate CKD if present for more than three months AND creatinine is at steady state. The eGFR provides a rough estimate of kidney function. On 11/11/21 all [facility] Clinical Labs and [facility] began using a [id number]-[id number] formula for estimating GFR called CKD-EPI Creatinine 2020. This equation reports eGFR based on creatinine, patient age, clinical sex, and is standardized to a body surface area of 1.73 m2. For the same creatinine, this new race-free eGFR will be lower than prior reported Black eGFR results and higher than prior Non-Black eGFR results. For further guidance, please refer to the CKD: Adult Heel Packer Signature pathway. Blood Venipuncture / Unknown 01/13/2023 10:47 PM EDT 01/13/2023 10:53 PM EDT Jessika Guardado MD LAB BLOOD ORDERABLES Final Resul t Performing Organization Address City/[facility]/ZIP Co de Phone Number [facility] [place], [place] [address] [phone] * (ABNORMAL) Hemoglobin A1c (05/29/2021 11:43 AM EST) Hemoglobin A1c 5.9(H) 4.0 - 5.6 % 05/29/2021 5:58 PM EST [facility] DEPARTMENT OF LABORATORY MEDICINE Comment: Hemoglobin A1c [...] mg/dL 123 mg/dL 05/29/2021 5:58 PM EST [facility]PARTMENT OF LABORATORY MEDICINE Comment: Estimated average glucose (eAG) is a calculated value designed to estimate ??the expected average blood glucose level throughout the day from a single ??measurement of ??glycated hemoglobin A1C (HbA1c) and follows the calculation proposed by the [place] [employer] Diabetes Association (Diabetes Care 31: 1-6, 2008). It may have less accuracy in children, women and patients with certain erythrocyte disorders. Blood Venipuncture / Unknown 05/29/2021 11:43 AM EST 05/29/2021 11:43 AM EST Lizzy Mcleod MD LAB BLOOD ORDERABLES Final Result [facility] DEPARTMENT OF LABORATORY MEDICINE [address] [place] [id number] [[email or web address]] [phone] * (ABNORMAL) Lipid panel (05/29/2021 11:43 AM EST) Cholesterol 188 See Comment mg/dL 05/29/2021 2:28 PM [facility] Comment: Total Cholesterol (mg/dL) ?Adults (>18 years) ? Children (<18 years) Desirable ?<200 ? <170 Borderline-High ?200-239 ?170-199 High ? >=240 ?>=200 ? HDL 59 >=40 mg/dL 05/29/2021 2:28 PM [facility] Triglycerides 142 See Comment mg/dL 05/29/2021 2:28 PM EST [facility] Comment: Triglycerides (mg/dL) ?Adults (>18 years) ? Children (<18 years) Desirable ?<150 ? Not Established Borderline-High ?150-199 ?Not Established High ? 200-499 ?Not Established ?? Chol/HDL Ratio 3.2 0.0 - 5.0 05/29/2021 2:28 PM EST [facility] LDL Calculated 101(H) See Comment mg/dL 05/29/2021 2:28 PM [facility] Comment: LDL Cholesterol (mg/dL) ?Adults (>18 years) ? Children (<18 years) Desirable ?<100 ? <110 Above Desirable ?100-129 ?Not Established Borderline-High ?130-159 ?110- 129 High ? 160-189 ?>=130 Very High? >=190 ? Not Established Blood Venipuncture / Unknown 05/29/2021 11:43 AM EST 05/29/2021 11:43 AM EST Lizzy Mcleod MD LAB BLOOD ORDERABLES Final Result Performing Organization Address [facility] de Phone Number [facility] [address] [place] [address], [facility] [[email or web address]] [phone] * HIV-1/HIV-2 antibody/antigen screen w/reflex ( GH LMW YH) (05/06/2016 11:51 AM EST) Pathologist [facility] HIV 1 and 2 Antibody/Antigen Screen Negative Negative 05/06/2016 3:16 PM EST [facility] Comment:Interpretation: This specimen is HIV [...] ORDERABLES Final Re sult Performing Organization Address [facility] Co de Phone Number [facility] [address] [place] [address], [facility] [[email or web address]] [phone] * Hepatitis C antibody (05/06/2016 11:51 AM EST) Pathologist [facility] Hepatitis C Antibody Negative Negative 05/07/2016 10:58 AM EST [facility] Comment:A negative result do es [...] ORDERABLES Final Re sult Performing Organization Address City/State/[facility] Co de Phone Number [facility] [address] [place] [address], [facility] [[email or web address]] [phone] from Last 3 Months or Most Recently Relevant to Health Maintenance Advance Directives * Full Code (Latest Code Status on File) Date Activated Date Inactivated Comments 06/28/2022 2:51 AM 06/29/2022 5:27 PM Question Answer Comments With Whom was the Code Status Discussed? Patient Care Teams Candy Cutter Hand Relationship Specialty Start Date End Date Mathew Chirinos, STUDENT PCP - General 06/20/24
--- OUTSIDE RECORDS SUMMARY | 2024-08-09 12:57 | XMS_ITS | Encounter Summary ---
Author Organization [facility] Address [address] [place] [address] Care Team Providers Care Oracle Wms Consultant Name Role Phone Mathew Chirinos STUDENT Primary Care Provider Unav ailable Reason for Visit * Reason Comments Medication Refill Encounter Details Date Type Department Care Team (Late st Contact Info) Description 05/29/2021 Refill [facility] [employer] [address] [employer] [employer] [address] [place], [place] [address] Lizzy Mcleod MD [address] [place] [address] Medication Refill Social History Tobacco Use [...] documented as of this encounter Care Teams Oracle Wms Consultant Relationship Specialty Start Date End Date Mathew Chirinos, STUDENT PCP - General 06/20/24 documented as of this encounter
--- OUTSIDE RECORDS SUMMARY | 2024-08-09 12:57 | XMS_ITS | Encounter Summary ---
Author Organization [facility] Address [address] [place] [address] Care Team Providers Care Swim Coach Name Role Phone Mathew Chirinos STUDENT Primary Care Provider Unav ailable Encounter Details Date Type Department Care Team (Late st Contact Info) Description 07/01/2021 Refill [facility] [employer] [address] [employer] [place], [place] [address] Chicho Anaya, KAYLEE [address] [place], [place] [address] Social History Tobacco Use Types Packs/Day Years [...] documented as of this encounter Care Teams Swim Coach Relationship Specialty Start Date End Date Mathew Chirinos, STUDENT PCP - General 06/20/24 documented as of this encounter
--- OUTSIDE RECORDS SUMMARY | 2024-08-09 12:57 | XMS_ITS | Encounter Summary ---
Author Organization [facility] Address [address] [place] [address] Care Team Providers Care Specialty Food Products Supervisor Name Role Phone Mathew Chirinos STUDENT Primary Care Provider Unav ailable Reason for Visit * Reason Comments Medication Problem Encounter Details Date Type Department Care Team (Late st Contact Info) Description 06/30/[address] [address] Ubaldo Wang, STUDENT Medication Problem Social History [...] documented as of this encounter Care Teams Specialty Food Products Supervisor Relationship Specialty Start Date End Date Mathew Chirinos, STUDENT PCP - General 06/20/24 documented as of this encounter
== END 2024-08-09 13:09 | disposition home or self-care (01) ==
LOC: HO.HVS 12:32
PROVIDERS: PCP Physician Assistant; Visit Provider Physician Assistant Surgical
DX: I89.0 Lymphedema, not elsewhere classified (principal)
CPT/HCPCS: 99214

== ENCOUNTER → 2024-08-09 12:31 | Outpatient (BNVA) | payer OTHER, SELFPAY | PROVIDERS: PCP Physician Assistant; Visit Provider Physician Assistant Surgical | DX: I89.0 Lymphedema, not elsewhere classified (principal) | CPT/HCPCS: 99212 ==

== ENCOUNTER 2024-08-14 15:08 | Outpatient (AMB) | payer OTHER, SELFPAY ==
--- OUTSIDE RECORDS SUMMARY | 2024-08-14 15:11 | XMS_ITS | Clinical Summary ---
Author Organization [facility] Address [address] [place] [address] Phone Care Team Providers Care Patient Accounts Clerk Name Role Phone Mathew Chirinos STUDENT Primary [...] this topic Medical Devices Implanted Type Area Fly Fishing Guide Device Identifier Shelf Expiration Date Model / Serial / Lot Patch Ventralex Hernia Circ - [id number] Implanted:01/2017 by Uriel Ko MD at [address] (Quantity not on file) Other-im plant Midline: [employer] ([employer]AY[employer]) 12/24/2018 [id number] / / [id number] Procedures Procedure Name Priority Date/Time Associated Diagnosis [...] - 144 mmol/L 01/13/2023 11:23 PM EDT [facility] Potassium 3.8 3.3 - 5.3 mmol/L 01/13/2023 11:23 PM EDT [facility] Chloride 100 98 - 107 mmol/L 01/13/2023 11:23 PM EDT [facility] CO2 27 20 - 30 mmol/L 01/13/2023 11:23 PM EDT [facility] Anion Gap 12 7 - 17 01/13/2023 11:23 PM EDT [facility] Glucose 100 70 - 100 mg/dL 01/13/2023 11:23 PM EDT [facility] BUN 8 6 - 20 mg/dL 01/13/2023 11:23 PM EDT [facility] Creatinine 0.90 0.40 - 1.30 mg/dL 01/13/2023 11:23 PM EDT [facility] Calcium 9.4 8.8 - 10.2 mg/dL 01/13/2023 11:23 PM T [facility] BUN/Creatinine Ratio 8.9 8.0 - 23.0 01/13/2023 11:23 PM T [facility] eGFR (Creatinine) >60 >=60 mL/min/1.7 3m2 01/13/2023 11:23 PM T [facility] Comment: Values < 60 mL/min/1.73 m2 may indicate CKD if present for more than three months AND creatinine is at steady state. The eGFR provides a rough estimate of kidney function. On 11/11/21 all [facility] Clinical Labs and [facility] began using a clm-rhsr-hsaso formula for estimating GFR called CKD-EPI Creatinine 2020. This equation reports eGFR based on creatinine, patient age, clinical sex, and is standardized to a body surface area of 1.73 m2. For the same creatinine, this new race-free eGFR will be lower than prior reported Black eGFR results and higher than prior Non-Black eGFR results. For further guidance, please refer to the CKD: Adult Device Repair Technician Signature pathway. Blood Venipuncture / Unknown 01/13/2023 10:47 PM EDT 01/13/2023 10:53 PM EDT Jessika Guardado MD LAB BLOOD ORDERABLES Final Resul t Performing Organization Address City/[facility]/ZIP Co de Phone Number [facility] [place], [place] [address] [phone] * (ABNORMAL) Hemoglobin A1c (05/29/2021 11:43 AM EST) Hemoglobin A1c 5.9(H) 4.0 - 5.6 % 05/29/2021 5:58 PM EST [facility] DEPARTMENT OF [facility]ORATORY MEDICINE Comment: Hemoglobin [...] mg/dL 123 mg/dL 05/29/2021 5:58 PM EST [facility] OF [facility]ORY MEDICINE Comment: Estimated average glucose (eAG) is a calculated value designed to estimate ??the expected average blood glucose level throughout the day from a single ??measurement of ??glycated hemoglobin A1C (HbA1c) and follows the calculation proposed by the [place] Diabetes Association (Diabetes Care 31: 1-6, 2008). It may have less accuracy in children, women and patients with certain erythrocyte disorders. Blood Venipuncture / Unknown 05/29/2021 11:43 AM EST 05/29/2021 11:43 AM EST Lizzy Mcleod MD LAB BLOOD ORDERABLES Final Result [facility] DEPARTMENT OF LABORATORY MEDICINE [address] [place] [address] [phone] * (ABNORMAL) Lipid panel (05/29/2021 11:43 AM EST) Cholesterol 188 See Comment mg/dL 05/29/2021 2:28 PM [facility] Comment: Total Cholesterol (mg/dL) ?Adults (>18 years) ? Children (<18 years) Desirable ?<200 ? <170 Borderline-High ?200-239 ?170-199 High ? >=240 ?>=200 ? HDL 59 >=40 mg/dL 05/29/2021 2:28 PM [facility] Triglycerides 142 See Comment mg/dL 05/29/2021 2:28 PM EST [facility] Comment: Triglycerides (mg/dL) ?Adults (>18 years) ? Children (<18 years) Desirable ?<150 ? Not Established Borderline-High ?150-199 ?Not Established High ? 200-499 ?Not Established ?? Chol/HDL Ratio 3.2 0.0 - 5.0 05/29/2021 2:28 PM EST [facility] LDL Calculated 101(H) See Comment mg/dL 05/29/2021 2:28 PM [facility] Comment: LDL Cholesterol (mg/dL) ?Adults (>18 years) ? Children (<18 years) Desirable ?<100 ? <110 Above Desirable ?100-129 ?Not Established Borderline-High ?130-159 ?110- 129 High ? 160-189 ?>=130 Very High? >=190 ? Not Established Blood Venipuncture / Unknown 05/29/2021 11:43 AM EST 05/29/2021 11:43 AM EST Lizzy Mcleod MD LAB BLOOD ORDERABLES Final Result Performing Organization Address [facility][1] de Phone Number [facility] [address] [place] [address], [facility] [phone] * HIV-1/HIV-2 antibody/antigen screen w/reflex ( GH LMW YH) (05/06/2016 11:51 AM EST) Pathologist [facility] HIV 1 and 2 Antibody/Antigen Screen Negative [...] ORDERABLES Final Re sult Performing Organization Address [facility] Co de Phone Number [facility] [address] [place] [address], [facility] [phone] * Hepatitis C antibody (05/06/2016 11:51 AM EST) Pathologist [facility] Hepatitis C Antibody Negative Negative 05/07/2016 10:58 [...] ORDERABLES Final Re sult Performing Organization Address City/State/[facility] Co de Phone Number [facility] [address] [place] [address], [facility] [phone] from Last 3 Months or Most Recently Relevant to Health Maintenance Advance Directives * Full Code (Latest Code Status on File) Date Activated Date Inactivated Comments 06/28/2022 2:51 AM 06/29/2022 5:27 PM Question Answer Comments With Whom was the Code Status Discussed? Patient Care Teams Patient Accounts Clerk Relationship Specialty Start Date End Date Mathew Chirinos, STUDENT PCP - General 06/20/24
--- OUTSIDE RECORDS SUMMARY | 2024-08-14 15:11 | XMS_ITS | Encounter Summary ---
Author Organization [facility] Address [address] [place] [address] Care Team Providers Care Supervisor Slashing Department Name Role Phone Mathew Chirinos STUDENT Primary Care Provider Unav ailable Encounter Details Date Type Department Care Team (Late st Contact Info) Description 07/01/2021 Refill [facility] [employer] [address] [employer] [place], [place] [address] Chicho Anaya, KAYLEE [address] [place], [place] [address] Social History Tobacco Use Types Packs/Day Years [...] documented as of this encounter Care Teams Supervisor Slashing Department Relationship Specialty Start Date End Date Mathew Chirinos, STUDENT PCP - General 06/20/24 documented as of this encounter
--- OUTSIDE RECORDS SUMMARY | 2024-08-14 15:11 | XMS_ITS | Encounter Summary ---
Author Organization [facility] Address [address] [place] [address] Care Team Providers Care Facilities Coordinator Name Role Phone Mathew Chirinos STUDENT Primary Care Provider Unav ailable Reason for Visit * Reason Comments Medication Problem Encounter Details Date Type Department Care Team (Late st Contact Info) Description 06/30/[address] [address] Ubaldo Wang, STUDENT Medication Problem Social History [...] documented as of this encounter Care Teams Facilities Coordinator Relationship Specialty Start Date End Date Mathew Chirinos, STUDENT PCP - General 06/20/24 documented as of this encounter
--- OUTSIDE RECORDS SUMMARY | 2024-08-14 15:11 | XMS_ITS | Encounter Summary ---
Author Organization [facility] Address [address] [place] [address] Care Team Providers Care Online Facilitator Name Role Phone Mathew Chirinos STUDENT Primary Care Provider Unav ailable Encounter Details Date Type Department Care Team (Late st Contact Info) Description 05/07/2016 Lab Requisition [facility] [address] [place], [place] [id number] Social History Tobacco Use Types Packs/Day Years [...] documented as of this encounter Care Teams Online Facilitator Relationship Specialty Start Date End Date Mathew Chirinos, STUDENT PCP - General 06/20/24 documented as of this encounter
--- OUTSIDE RECORDS SUMMARY | 2024-08-14 15:11 | XMS_ITS | Encounter Summary ---
Author Organization [facility] Address [address] [place] [address] Care Team Providers Care Acid Mixer Name Role Phone Mathew Chirinos Primary Care Provider Unav ailable Encounter Details Date Type Department Care Team (Late st Contact Info) Description 06/02/[address] [address] Ubaldo Wang, STUDENT Social History Tobacco Use [...] (DIPROLENE) 0.05 % cream. Call back is [phone] documented in this encounter Plan of Treatment [...] documented as of this encounter Care Teams Acid Mixer Relationship Specialty Start Date End Date Mathew Chirinos, STUDENT PCP - General 06/20/24 documented as of this encounter
--- OUTSIDE RECORDS SUMMARY | 2024-08-14 15:11 | XMS_ITS | Clinical Summary ---
Author Organization [facility] Address [address] [place] [address] Care Team Providers Care Gamemaster Name Role Phone Pcp, No Primary Care [...] Vaccine (2 - season) 2023 Care Teams Gamemaster Relationship Specialty Start Date End Date Pcp, No PCP - General General Medicine 06/05/19
--- OUTSIDE RECORDS SUMMARY | 2024-08-14 15:11 | XMS_ITS | Encounter Summary ---
Author Organization [facility] Address [address] [place] [address] Care Team Providers Care Oil House Attendant Name Role Phone Mathew Chirinos STUDENT Primary Care Provider Unav ailable Encounter Details Date Type Department Care Team (Late st Contact Info) Description 05/07/2016 Lab Requisition [facility] [address] [place], [place] [id number] Gwendolyn Whitmore MD [address] [place] [address] Frequency of micturition Social History [...] - 52.0 % 05/07/2016 3:16 PM EST [facility] MCV 87.1 78.0 - 94.0 fL 05/07/2016 3:16 PM EST [facility] Blood specimen (specimen) 05/06/2016 12:26 PM EST 05/07/2016 3:14 PM EST us Gwendolyn Whitmore MD LAB BLOOD ORDERABLES Final Resu lt Performing Organization Address City/State/[facility] Co de Phone Number [facility] [address] [place] [phone] documented in this encounter Visit Diagnoses Diagnosis [...] documented as of this encounter Care Teams Oil House Attendant Relationship Specialty Start Date End Date Mathew Chirinos, STUDENT PCP - General 06/20/24 documented as of this encounter
--- OUTSIDE RECORDS SUMMARY | 2024-08-14 15:11 | XMS_ITS | Encounter Summary ---
Author Organization [facility] Address [address] [place] [address] Care Team Providers Care Professor Of Finance Name Role Phone Mathew Chirinos STUDENT Primary Care Provider Unav ailable Reason for Visit * Reason Comments Other Encounter Details Date Type Department Care Team (Late st Contact Info) Description 07/23/2021 Telephone [facility] [address] [place] [address] Ubaldo Wang, STUDENT Other Social History Tobacco [...] call back . Patient canbe reached at [phone] documented in this encounter Plan of Treatment [...] documented as of this encounter Care Teams Professor Of Finance Relationship Specialty Start Date End Date Mathew Chirinos, STUDENT PCP - General 06/20/24 documented as of this encounter
--- OUTSIDE RECORDS SUMMARY | 2024-08-14 15:11 | XMS_ITS | Encounter Summary ---
Author Organization [facility] Address [address] [place] [address] Care Team Providers Care Metal Cut Off Saw Operator Name Role Phone Mathew Chirinos STUDENT Primary Care Provider Unav ailable Reason for Visit * Reason Comments Medication Refill Encounter Details Date Type Department Care Team (Late st Contact Info) Description 05/29/2021 Refill [facility] [employer] [address] [place], [place] [address] Lizzy Mcleod MD [address] [place] [address] Medication Refill Social History Tobacco Use [...] documented as of this encounter Care Teams Metal Cut Off Saw Operator Relationship Specialty Start Date End Date Mathew Chirinos, STUDENT PCP - General 06/20/24 documented as of this encounter
--- OUTSIDE RECORDS SUMMARY | 2024-08-14 15:11 | XMS_ITS | Encounter Summary ---
Author Organization [facility] Address [address] [place] [address] Care Team Providers Care Emergency Nurse Name Role Phone ChirinosRaine nicolasshua STUDENT Primary Care Provider Unav ailable Reason for Visit * Reason Comments Medication Problem Other Encounter Details Date Type Department Care Team (Late st Contact Info) Description 07/04/2021 Refill [facility] [address] [place] [address] FelipeAlva, [place], STUDENT Medication Problem; Other Social History [...] nystatin-triamcinolone (MYCOLOG II) 100,000 unit/g-0.1% cream, utilizes [id number] - [place], [place] - [address] [facility] [address] ( ) contact number [phone] documented in this encounter Plan of Treatment [...] documented as of this encounter Care Teams Emergency Nurse Relationship Specialty Start Date End Date Mathew Chirinos, STUDENT PCP - General 06/20/24 documented as of this encounter
[2024-08-14 15:18] VITALS: BP 110/74; PULSE 82; TEMP 36.2; O2SAT 93; BMI 50.4
--- NOTE | 2024-08-14 15:18 | A.OFFPC_ITS ---
Vital Signs 3 08/14/24 15:18 Height 5 ft 11 in Weight 361 lb 8 oz BMI 50.4 BP 110/74 Blood Pressure Location Lt brachial Position Sitting Pulse 82 Pulse Source Pulse Oximeter Temp 97.1 F Temp Source Temporal Artery Scan Pulse Oximetry (%) 93 Oxygen Delivery Method Room Air Intake Visit Reasons: f/u HTN Marine Pilot Required: No Accompanied by: Self / Same As Patient Allergies No Known Allergies Allergy (Verified 08/14/24 15:27) Medication List - Last Reconciled 08/14/24 by Jorge Gilliland PA-C blood pressure monitor As directed lisinopril 20 mg PO DAILY 30 days silver sulfadiazine 1% (Silvadene) 1 appl topical BID 30 days tirzepatide (weight loss) (Zepbound) 2.5 mg (0.5 mL) subcut QWEEK 4 weeks Tobacco use date assessed: 06/15/24 Dental Screening Dental Screen Date: 06/15/24 HPI f/u HTN 2 HPI0 Details Patient is a 54-year-old male here today for follow-up visit. Patient's has a past medical history significant for hypertension, obstructive sleep apnea, asthma, psoriasis, obesity and bilateral lower extremity lymphedema with venous stasis issues. .. Bilateral lower extremity lymphedema: At last visit we discussed patient's chronic lower extremity swelling, has followed up with [facility] who increase he has lymphedema. He will be started with lymphedema clinic next month. He does report some clearing of his skin and less redness with prednisone though he does understand the long-term effects of prednisone. He is due for in-depth ultrasounds of his lower extremity to evaluate for vascular issue. Hypertension: Patient's blood pressure much improved since starting lisinopril 20 mg. .. Psoriasis: He does report having a history of psoriasis though has not had any proper treatment. He is tried [id number] ointments and creams though have not been effective. He is still waiting to hear from a electric clock mechanic for evaluation .. Class 3 obesity: Has lost a small amount of weight since last office visit, has not started Zepbound due to fears of side effects . He does understand he is severely obese and needs to work weight reduction though has found it very difficult to do so. .. Obstructive sleep apnea: Patient has signs and symptoms consistent with the obstructive sleep apnea. STOP BANG [id number] for obstructive sleep apnea. Will try to get patient to do another home sleep study to get insurance coverage for a CPAP machine. [facility] Medical History Lymphedema Asthma Erythema Essential hypertension Stasis dermatitis of both legs Anemia Morbid obesity Psoriasis Social History Household Members: Family Household Members Other:: Son and daughter in law Housing: House Do you presently have visiting nurse or other home services: No Alcohol intake: former Patient Tobacco Use Status: Never used Tobacco e-Cigarette/Vaping Use: Never Used service: No Cognitive needs: No Hearing needs: No Vision needs: No Questionnaire PHQ-9 Over the last 2 weeks, how often have you been bothered by any of the following problems? 1. Little interest or pleasure in doing things: several days 2. Feeling down, depressed, or hopeless: not at all 3. Trouble falling or staying asleep, or sleeping too much: several days 4. Feeling tired or having little energy: nearly every day 5. Poor appetite or overeating: several days 6. Feeling bad about yourself - or that you are a failure or have let yourself or your family down: not at all 7. Trouble concentrating on things, such as reading the newspaper or watching television: not at all 8. Moving or speaking so slowly that other people could have noticed. Or the opposite - being so fidgety or restless that you have been moving around a lot more than usual: not at all 9. Thoughts that you would be better off or of hurting yourself in some way: not at all Total score: 6 Depression Screening Interpretation: Positive Depression Screening Follow-up: Existing condition Depression Screening Done: Yes 78122 - PHQ-9 Billing: Yes Source: Developed by Drs. Robi Chiu, Lindy Cole, Winston Celis and colleagues, with an educational baron from [employer]. Thrive Questionnaire Date Thrive assessed: 08/14/24 I am a: Patient What is your living situation today?: I have a place to live, but I am worried about losing it in the future Within the past 12 months, did the food you bought not last and you didn't have the money to get more?: Sometimes True Within the past 12 months, did you worry whether your food would run out before you got money to buy more?: Sometimes True Do you have trouble paying for medicines?: Yes Do you have trouble getting transportation to medical appointments?: No Do you have trouble paying your heating and electricity bill?: I choose not to answer this question Do you have trouble taking care of your child, family member or friend?: No Do you have trouble with day-to-day activities such as bathing, preparing meals, shopping, managing finances, etc.?: No Are you currently unemployed and looking for a job?: Yes Are you interested in more education?: No Currently or been in a relationship where the following occur: No concerns reported THRIVE Score: 3 JEANCARLOS-7 AMB Questionnaire JEANCARLOS-7 Date JEANCARLOS - 7 assessed: 06/15/24 Source: Developed by Drs. Robi Chiu, Lindy Cole, Winston Celis and colleagues, with an educational baron from [employer]. Review of Systems Const Denies headache(s) Eyes Denies loss of vision ENT Denies vertigo, Denies dizziness, Denies headache(s) and Denies sore throat Card Denies chest pain, Denies leg edema and Denies lightheadedness Resp Denies cough, Denies hemoptysis and Denies wheezing GI Denies abdominal pain, Denies melena, Denies constipation, Denies diarrhea and Denies vomiting Denies dysuria, Denies urinary frequency and Denies urinary urgency Musc Denies arthralgias, Denies joint swelling, Denies numbness and Denies tingling Neuro Denies Abnormal speech present, Denies behavioral changes, Denies vertigo, Denies dizziness, Denies headache(s), Denies loss of vision, Denies memory loss, Denies numbness and Denies tingling Psych Denies anxiety, Denies behavioral changes, Denies depression, Denies memory loss and Denies panic attacks Desmond/Lymph Denies easy bleeding and Denies easy bruising Aller/Immun Denies wheezing Physical exam (Primary Care) Vital Signs: Last Vital Signs Temp 97.1 F 08/14/24 15:18 Pulse 82 08/14/24 15:18 BP 110/74 08/14/24 15:18 Pulse Ox 93 08/14/24 15:18 Oxygen Delivery Method Room Air 08/14/24 15:18 BMI result Body Mass Index 50.4 BMI Assessment/Plan discussion: High BMI High, discussed plan: lifestyle, weight reduction, dietary and physical activity Tobacco/Smoking Status: Tobacco use Status Tobacco use date assessed 06/15/24 08/14/24 15:20 Patient Tobacco Use Status Never used Tobacco 08/14/24 15:20 e-Cigarette/Vaping Use Never Used 08/14/24 15:20 Depression Screening Interpretation: Positive Depression Screening Follow-up: Existing condition Thrive Assessment: Date of Thrive Assessment Date Thrive assessed 08/14/24 08/14/24 15:20 Currently or been in a relationship where the following occur: No concerns reported Const General: healthy appearing, no acute distress, alert and awake Nutritional Appearance: well nourished Orientation/consciousness: oriented to person, oriented to place and oriented to time HENMT Ears: TM's normal bilaterally General nose exam: Normal nasal mucous membranes and turbinates present Eyes Conjunctivae: conjunctivae normal Sclerae: sclerae normal Pupils: Equal, round and reactive pupils present Neck Neck: Yes no lymphadenopathy and Yes no JVD Thyroid: Thyroid normal Carotids: no bruits Resp Effort & Inspection: normal respiratory effort and not tachypneic Auscultation: no crackles, no rales, no rhonchi and no wheezes Cardio Rate: regular rate Rhythm: regular rhythm Heart sounds: no murmurs and normal S1 and S2 GI Palpation (GI): Soft to palpation, nontender, no hepatomegaly and no splenomegaly Auscultation: normal bowel sounds Skin General skin exam: no rashes or lesions noted and dry skin Neuro General: oriented to person, oriented to place and oriented to time Cranial nerves: Yes Equal, round and reactive pupils present Speech: No Abnormal speech present Gait exam (Neuro): Normal gait present Motor exam (neuro): no tremor noted Extrem Other: Right upper extremity: full ROM Left upper extremity: full ROM Right lower extremity: full ROM; no edema Left lower extremity: full ROM; no edema Psych Mental Status: mental status grossly normal Speech and movement: Normal speech and movement present Affect: normal affect Attitude: cooperative Thought process: Normal thought process present Coding Level of Care Code Est Pt Level 4 (16334) Diagnoses Psoriasis L40.9 Essential hypertension I10 Stasis dermatitis of both legs I87.2 Class 3 obesity E66.813 Additional Codes PHQ-9 - 96242 - PHQ-9 Billing: Yes ([id number]) Assessment & Plan Assessment & Plan (1) Psoriasis: Code(s): L40.9 - Psoriasis, unspecified Category: Medical Plan: PLEASE SEE PICTURE SECTION AND PHYSICAL EXAM. Patient's skin manifestations concerning for a pretty severe psoriasis. Has tried topical treatments and antibiotics though have not been effective for any long period of time. Will try to set patient up with a electric clock mechanic for disease modifying drug evaluation (2) Essential hypertension: Code(s): I10 - Essential (primary) hypertension Category: Medical Plan: Patient's blood pressure acceptable today in office. Continues on lisinopril 20 mg with good effect. Goal blood pressure to be below 140/90 (3) Stasis dermatitis of both legs: Code(s): I87.2 - Venous insufficiency (chronic) (peripheral) Category: Medical Plan: Patient now followed by [facility], has been fitted for pneumatic compression therapy pants. He is due for more in-depth ultrasounds to evaluate for vascular issue. He does reports improvement in his skin with the use of Silvadene cream (4) Class 3 obesity: Code(s): E66.813 - Obesity, class 3 Category: Medical Plan: A sleep study will be ordered to confirm the diagnosis, and manage appropriately upon confirmation. Patient is very confused about diet and well good eating habits really looks like. He is interested in a dietitian to speak with. Orders: Orders 2 RT home sleep study Today G47.33 - Obstructive sleep apnea (adult) (pediatric) Referrals 2 Dermatology Referral L40.9 - Psoriasis, unspecified Medications: New 2 triamcinolone acetonide 0.1% 1 appl topical DAILY 30 days 454 grams 1RF L40.9 - Psoriasis, unspecified
== END 2024-08-14 16:01 | disposition home or self-care (01) ==
LOC: HO.HMCH 15:09
PROVIDERS: PCP Physician Assistant; Visit Provider Physician Assistant
DX: I10 Essential (primary) hypertension (principal); Z68.43 Body mass index [BMI] 50.0-59.9, adult; E66.813 Obesity, class 3; L40.9 Psoriasis, unspecified; I87.2 Venous insufficiency (chronic) (peripheral)

== ENCOUNTER → 2024-08-14 15:08 | Outpatient (BNVA) | payer OTHER, SELFPAY | PROVIDERS: PCP Physician Assistant; Visit Provider Physician Assistant | DX: I10 Essential (primary) hypertension (principal); L40.9 Psoriasis, unspecified; I87.2 Venous insufficiency (chronic) (peripheral); E66.813 Obesity, class 3; Z68.43 Body mass index [BMI] 50.0-59.9, adult; G47.33 Obstructive sleep apnea (adult) (pediatric); J45.909 Unspecified asthma, uncomplicated; I89.0 Lymphedema, not elsewhere classified; Z79.899 Other long term (current) drug therapy | CPT/HCPCS: 96127; 99212 ==

== ENCOUNTER 2024-09-14 15:04 | Outpatient (AMB) | payer OTHER, SELFPAY ==
--- NOTE | 2024-09-14 15:08 | MHC.PC.OV ---
Vital Signs 09/14/24 15:16 Height 5 ft 11 in Weight 364 lb 4 oz BMI 50.8 BP 140/80 H Blood Pressure Location Lt brachial Position Sitting Pulse 84 Pulse Source Pulse Oximeter Temp 96.6 F L Temp Source Temporal Artery Scan Pulse Oximetry (%) 93 Oxygen Delivery Method Room Air Intake Visit Reasons: f/u HTN / Lymphedema / psoriasis Manager Film Required: No Accompanied by: Self / Same As Patient Allergies No Known Allergies Allergy (Verified 09/14/24 15:25) Medication List - Last Reconciled 09/14/24 by Jorge Gilliland PA-C blood pressure monitor As directed lisinopril 20 mg PO DAILY 30 days silver sulfadiazine 1% (Silvadene) 1 appl topical BID 30 days triamcinolone acetonide 0.1% 1 appl topical DAILY 30 days Tobacco use date assessed: 06/15/24 Dental Screening Dental Screen Date: 06/15/24 HPI f/u HTN / Lymphedema / psoriasis HPI Details Patient is a 54-year-old male here today for follow-up visit. Patient's has a past medical history significant for hypertension, obstructive sleep apnea, asthma, psoriasis, obesity and bilateral lower extremity lymphedema with venous stasis issues. .. Bilateral lower extremity lymphedema: At last visit we discussed patient's chronic lower extremity swelling, has followed up with [facility] who increase he has lymphedema. He will be started with lymphedema clinic next month. He does report some clearing of his skin and less redness with prednisone though he does understand the long-term effects of prednisone. He is due for in-depth ultrasounds of his lower extremity to evaluate for vascular issue. Hypertension: Patient's blood pressure much improved since starting lisinopril 20 mg. .. Psoriasis: He does report having a history of psoriasis though has not had any proper treatment. He is tried prescription steroid and [id number]-[id number] ointments and creams though have not been effective. He is still waiting to hear from a completions manager for evaluation .. Class 3 obesity: Has lost a small amount of weight since last office visit, has not started Zepbound due to fears of side effects . He does understand he is severely obese and needs to work weight reduction though has found it very difficult to do so. [facility] Medical History Lymphedema Asthma Erythema Essential hypertension Stasis dermatitis of both legs Anemia Morbid obesity Psoriasis Social History Household Members: Family Household Members Other:: Son and daughter in law Housing: House Do you presently have visiting nurse or other home services: No Alcohol intake: former Patient Tobacco Use Status: Never used Tobacco e-Cigarette/Vaping Use: Never Used service: No Current occupational status: employed Cognitive needs: No Hearing needs: No Vision needs: No Questionnaire Thrive Questionnaire Date Thrive assessed: 06/12/24 I am a: Patient What is your living situation today?: I have a place to live, but I am worried about losing it in the future Within the past 12 months, did the food you bought not last and you didn't have the money to get more?: Sometimes True Within the past 12 months, did you worry whether your food would run out before you got money to buy more?: Sometimes True Do you have trouble paying for medicines?: Yes Do you have trouble getting transportation to medical appointments?: No Do you have trouble paying your heating and electricity bill?: I choose not to answer this question Do you have trouble taking care of your child, family member or friend?: No Do you have trouble with day-to-day activities such as bathing, preparing meals, shopping, managing finances, etc.?: No Are you currently unemployed and looking for a job?: Yes Are you interested in more education?: No Currently or been in a relationship where the following occur: No concerns reported THRIVE Score: 3 JEANCARLOS-7 AMB Questionnaire JEANCARLOS-7 Date JEANCARLOS - 7 assessed: 06/15/24 Source: Developed by Drs. Robi Chiu, Lindy Cole, Winston Celis and colleagues, with an educational baron from [employer]. Physical exam (Primary Care) Vital Signs: Last Vital Signs Temp 96.6 F L 09/14/24 15:16 Pulse 84 09/14/24 15:16 BP 140/80 H 09/14/24 15:16 Pulse Ox 93 09/14/24 15:16 Oxygen Delivery Method Room Air 09/14/24 15:16 BMI result Body Mass Index 50.8 Tobacco/Smoking Status: Tobacco use Status Tobacco use date assessed 06/15/24 09/14/24 15:08 Patient Tobacco Use Status Never used Tobacco 09/14/24 15:08 e-Cigarette/Vaping Use Never Used 09/14/24 15:08 Thrive Assessment: Date of Thrive Assessment Date Thrive assessed 06/12/24 09/14/24 15:08 Currently or been in a relationship where the following occur: No concerns reported Coding Level of Care Code Est Pt Level 4 (04469) Diagnoses Psoriasis L40.9 Essential hypertension I10 Stasis dermatitis of both legs I87.2 Assessment & Plan Assessment & Plan (1) Psoriasis: Code(s): L40.9 - Psoriasis, unspecified Category: Medical Plan: PLEASE SEE PICTURE SECTION AND PHYSICAL EXAM AT PREVIOUS OFFICE VISITS Patient's skin manifestations concerning for a pretty severe psoriasis. Has tried topical treatments and antibiotics though have not been effective for any long period of time. Has been using creams , topical, oral steroids, antibiotics though has not been able clear his lower extremity skin manifestations Will try to set patient up with a completions manager for disease modifying drug evaluation (2) Essential hypertension: Code(s): I10 - Essential (primary) hypertension Category: Medical Plan: Patient's blood pressure acceptable today in office. Continues on lisinopril 20 mg with good effect. Goal blood pressure to be below 140/90 (3) Stasis dermatitis of both legs: Code(s): I87.2 - Venous insufficiency (chronic) (peripheral) Category: Medical Plan: Patient now followed by [facility], continues to have lower extremity edema with erythematous scaly skin He does reports improvement in his skin with the use of Silvadene cream Orders: Referrals Dermatology Referral L40.9 - Psoriasis, unspecified Medications: New prednisone take 3 tabs x 3 days, take 2 tabs x 3 days , take 1 tab x 3 days. 10 mg PO DIRECTED 18 tabs 0RF 9 days L40.9 - Psoriasis, unspecified
[2024-09-14 15:16] VITALS: BP 140/80; PULSE 84; TEMP 35.9; O2SAT 93; BMI 50.8
--- OUTSIDE RECORDS SUMMARY | 2024-09-14 16:24 | XMS_ITS | Encounter Summary ---
Author Organization [facility] Address [address] [place] [address] Care Team Providers Care Landscape Architect Name Role Phone Mathew Chirinos STUDENT Primary Care Provider Unav ailable Encounter Details Date Type Department Care Team (Late st Contact Info) Description 05/07/2016 Lab Requisition [facility] Specimens [address], [place] [id number] Gwendolyn Whitmore MD [address] [place] [address] Frequency of micturition Social History [...] - 52.0 % 05/07/2016 3:16 PM EST [facility] MCV 87.1 78.0 - 94.0 fL 05/07/2016 3:16 PM EST [facility] Blood specimen (specimen) 05/06/2016 12:26 PM EST 05/07/2016 3:14 PM EST us Gwendolyn Whitmore MD LAB BLOOD ORDERABLES Final Resu lt Performing Organization Address City/State/[facility] Co de Phone Number [facility] [address] [place] [phone] documented in this encounter Visit Diagnoses Diagnosis [...] documented as of this encounter Care Teams Landscape Architect Relationship Specialty Start Date End Date Mathew Chirinos, STUDENT PCP - General 06/20/24 documented as of this encounter
== END 2024-09-14 15:52 | disposition home or self-care (01) ==
LOC: HO.HMCH 15:04
PROVIDERS: PCP Physician Assistant; Visit Provider Physician Assistant
DX: L40.9 Psoriasis, unspecified (principal); I10 Essential (primary) hypertension; I87.2 Venous insufficiency (chronic) (peripheral)

== ENCOUNTER → 2024-09-14 15:04 | Outpatient (BNVA) | payer OTHER, SELFPAY | PROVIDERS: PCP Physician Assistant; Visit Provider Physician Assistant | DX: L40.9 Psoriasis, unspecified (principal); I10 Essential (primary) hypertension; I87.2 Venous insufficiency (chronic) (peripheral); Z79.899 Other long term (current) drug therapy | CPT/HCPCS: 99212 ==

== ENCOUNTER 2024-12-18 15:25 | Outpatient (AMB) | payer OTHER, SELFPAY ==
[2024-12-18 15:48] VITALS: BP 142/80; PULSE 85; TEMP 36.2; O2SAT 92; BMI 51.9
--- NOTE | 2024-12-18 15:48 | MHC.PC.OV ---
Vital Signs 12/18/24 15:48 Height 5 ft 11 in Weight 372 lb 4 oz BMI 51.9 BP 142/80 H Blood Pressure Location Lt brachial Position Sitting Pulse 85 Pulse Source Pulse Oximeter Temp 97.1 F Temp Source Temporal Artery Scan Pulse Oximetry (%) 92 Oxygen Delivery Method Room Air Intake Visit Reasons: f/u psoriasis Allergies No Known Allergies Allergy (Verified 12/18/24 16:02) Medication List - Last Reconciled 12/18/24 by Jorge Gilliland PA-C blood pressure monitor As directed lisinopril 20 mg PO DAILY 30 days silver sulfadiazine 1% (Silvadene) 1 appl topical BID 30 days triamcinolone acetonide 0.1% 1 appl topical DAILY 30 days Tobacco use date assessed: 12/18/24 Dental Screening Dental Screen Date: 12/18/24 Did you have a dental visit in the last 12 months?: No Did you have a dental problem in the last 6 months where you did not have access to dental care?: No Was dental information given to patient?: No HPI f/u psoriasis HPI Details Patient is a 54-year-old male here today for follow-up visit. Patient's has a past medical history significant for hypertension, obstructive sleep apnea, asthma, psoriasis, obesity and bilateral lower extremity lymphedema with venous stasis issues. Concern--> The patient experiences sinus congestion, which he attributes to allergies, although he denies having a history of allergies. He reports feeling congested with a runny nose and mouth breathing, which started the previous night. .. Bilateral lower extremity lymphedema: At last visit we discussed patient's chronic lower extremity swelling, has followed up with [facility] who increase he has lymphedema. He has followed up with the lymphedema vascular clinic in now started pneumatic compression. He has been using topical creams which has been helpful for his skin. Hypertension: Pressure today elevated, he reports he is not taking his blood pressure medication today as he has ran out. Needs refill in his lisinopril 20 mg which seems to have helped manage his blood pressure well. .. Psoriasis: He does report having a history of psoriasis though has not had any proper treatment. He is tried prescription steroid and [id number] ointments and creams though have not been effective. He has followed up with a baseball pitcher recently and did not appreciate the visit as he felt he was being forced into trying a disease modifying drugs Skyrizi . For now he would work on diet, weight loss and topical creams for his psoriasis. .. Class 3 obesity: Unfortunately has gained weight since last office visit. , we have discuss trying a GLP 1 to help him lose weight though he is concerned about side effects . He does understand he is severely obese and needs to work weight reduction though has found it very difficult to do so. [facility] Medical History Lymphedema Asthma Erythema Essential hypertension Stasis dermatitis of both legs Anemia Morbid obesity Psoriasis Social History Household Members: Family Household Members Other:: Son and daughter in law Housing: House Do you presently have visiting nurse or other home services: No Alcohol intake: former Patient Tobacco Use Status: Never used Tobacco e-Cigarette/Vaping Use: Never Used service: No Current occupational status: employed Cognitive needs: No Hearing needs: No Vision needs: No Questionnaire PHQ-9 Over the last 2 weeks, how often have you been bothered by any of the following problems? 1. Little interest or pleasure in doing things: several days 2. Feeling down, depressed, or hopeless: not at all 3. Trouble falling or staying asleep, or sleeping too much: several days 4. Feeling tired or having little energy: nearly every day 5. Poor appetite or overeating: several days 6. Feeling bad about yourself - or that you are a failure or have let yourself or your family down: not at all 7. Trouble concentrating on things, such as reading the newspaper or watching television: not at all 8. Moving or speaking so slowly that other people could have noticed. Or the opposite - being so fidgety or restless that you have been moving around a lot more than usual: not at all 9. Thoughts that you would be better off or of hurting yourself in some way: not at all Total score: 6 Depression Screening Interpretation: Positive Depression Screening Follow-up: Existing condition and Declines treatment Depression Screening Done: Yes 85693 - PHQ-9 Billing: Yes Source: Developed by Drs. Robi Chiu, Lindy ColeWinston and colleagues, with an educational baron from [employer]. Thrive Questionnaire Date Thrive assessed: 06/12/24 I am a: Patient What is your living situation today?: I have a place to live, but I am worried about losing it in the future Within the past 12 months, did the food you bought not last and you didn't have the money to get more?: Sometimes True Within the past 12 months, did you worry whether your food would run out before you got money to buy more?: Sometimes True Do you have trouble paying for medicines?: Yes Do you have trouble getting transportation to medical appointments?: No Do you have trouble paying your heating and electricity bill?: I choose not to answer this question Do you have trouble taking care of your child, family member or friend?: No Do you have trouble with day-to-day activities such as bathing, preparing meals, shopping, managing finances, etc.?: No Are you currently unemployed and looking for a job?: Yes Are you interested in more education?: No Currently or been in a relationship where the following occur: No concerns reported THRIVE Score: 3 AUDIT C Alcohol Use Questionnaire (AUDIT-C) 1. How often do you have a drink containing alcohol?: Monthly or less 2. How many drinks containing alcohol do you have on a typical day when you are drinking?: 1 or 2 3. How often do you have six or more drinks on one occasion?: Never Total Score: 1 JEANCARLOS-7 AMB Questionnaire JEANCARLOS-7 Date JEANCARLOS - 7 assessed: 06/15/24 Feeling nervous, anxious, or on edge: 0 = Not at all Not being able to stop or control worryin = Not at all Worrying too much about different things: 1 = Several days Trouble relaxin = Not at all Being so restless that it is hard to sit still: 0 = Not at all Becoming easily annoyed or irritable: 0 = Not at all Feeling afraid as if something awful might happen: 0 = Not at all Total JEANCARLOS-7 score (0-4 normal; 5-9 mild; 10-14 moderate; 15-21 severe): 1 Source: Developed by Drs. Robi Chiu, Winston Hicks and colleagues, with an educational baron from [employer]. JEANCARLOS-7 Assessment Billing JEANCARLOS-7 Assessment Tool: JEANCARLOS-7 Assessment 12335 Review of Systems Const Denies headache(s) Eyes Denies loss of vision ENT Denies vertigo, Denies dizziness, Denies headache(s) and Denies sore throat Card Denies chest pain, Denies leg edema and Denies lightheadedness Resp Denies cough, Denies hemoptysis and Denies wheezing GI Denies abdominal pain, Denies melena, Denies constipation, Denies diarrhea and Denies vomiting Denies dysuria, Denies urinary frequency and Denies urinary urgency Musc Denies arthralgias, Denies joint swelling, Denies numbness and Denies tingling Skin/Breast Details: + psoriatic skin lesions over arms and legs Neuro Denies Abnormal speech present, Denies behavioral changes, Denies vertigo, Denies dizziness, Denies headache(s), Denies loss of vision, Denies memory loss, Denies numbness and Denies tingling Psych Denies anxiety, Denies behavioral changes, Denies depression, Denies memory loss and Denies panic attacks Desmond/Lymph Denies easy bleeding and Denies easy bruising Aller/Immun Denies wheezing Physical exam (Primary Care) Vital Signs: Last Vital Signs Temp 97.1 F 12/18/24 15:48 Pulse 85 12/18/24 15:48 BP 142/80 H 12/18/24 15:48 Pulse Ox 92 12/18/24 15:48 Oxygen Delivery Method Room Air 12/18/24 15:48 BMI result Body Mass Index 51.9 Tobacco/Smoking Status: Tobacco use Status Tobacco use date assessed 12/18/24 12/18/24 15:53 Patient Tobacco Use Status Never used Tobacco 12/18/24 15:48 e-Cigarette/Vaping Use Never Used 12/18/24 15:48 PHQ-9: PHQ-9 Score PHQ-9: Total score 6 12/18/24 16:08 Depression Screening Interpretation: Positive Depression Screening Follow-up: Existing condition and Declines treatment Thrive Assessment: Date of Thrive Assessment Date Thrive assessed 06/12/24 12/18/24 15:48 Currently or been in a relationship where the following occur: No concerns reported Const General: healthy appearing, no acute distress, alert and awake Nutritional Appearance: well nourished Orientation/consciousness: oriented to person, oriented to place and oriented to time HENDC Ears: TM's normal bilaterally General nose exam: Normal nasal mucous membranes and turbinates present Eyes Conjunctivae: conjunctivae normal Sclerae: sclerae normal Pupils: Equal, round and reactive pupils present Neck Neck: Yes no lymphadenopathy and Yes no JVD Thyroid: Thyroid normal Carotids: no bruits Resp Effort & Inspection: normal respiratory effort and not tachypneic Auscultation: no crackles, no rales, no rhonchi and no wheezes Cardio Rate: regular rate Rhythm: regular rhythm Heart sounds: no murmurs and normal S1 and S2 GI Palpation (GI): Soft to palpation, nontender, no hepatomegaly and no splenomegaly Auscultation: normal bowel sounds Skin Other: Dry patchy skin lesions over arms and legs Improvement of his psoriatic skin lesions over bilateral lower extremities General skin exam: dry skin Neuro General: oriented to person, oriented to place and oriented to time Cranial nerves: Yes Equal, round and reactive pupils present Speech: No Abnormal speech present Gait exam (Neuro): Normal gait present Motor exam (neuro): no tremor noted Extrem Right upper extremity: full ROM Left upper extremity: full ROM Right lower extremity: full ROM; no edema Left lower extremity: full ROM; no edema Psych Mental Status: mental status grossly normal Speech and movement: Normal speech and movement present Affect: normal affect Attitude: cooperative Thought process: Normal thought process present Coding Level of Care Code Est Pt Level 4 (79577) Diagnoses Psoriasis L40.9 Essential hypertension I10 Stasis dermatitis of both legs I87.2 Tinea corporis B35.4 Subacute frontal sinusitis J01.10 Chronicity: subacute Sinusitis location: frontal Additional Codes PHQ-9 - 17961 - PHQ-9 Billing: Yes ([id number]) JEANCARLOS-7 Assessment Billing - JEANCARLOS-7 Assessment Tool: JEANCARLOS-7 Assessment 57970 ([id number]) Assessment & Plan Assessment & Plan (1) Psoriasis: Code(s): L40.9 - Psoriasis, unspecified Category: Medical Plan: The management of psoriasis will continue with the use of prescribed creams, which have shown improvement. Lymphedema will be managed with the continued use of a machine that has provided some relief (2) Essential hypertension: Code(s): I10 - Essential (primary) hypertension Category: Medical Plan: Patient's blood pressure elevated today in office, has has been taking his blood pressure medication recently as he ran out. Will refill his lisinopril 20 mg. Continues on lisinopril 20 mg with good effect. Goal blood pressure to be below 140/90 (3) Stasis dermatitis of both legs: Code(s): I87.2 - Venous insufficiency (chronic) (peripheral) Category: Medical Plan: Patient now followed by [facility], continues to have lower extremity edema with erythematous scaly skin He does reports improvement in his skin with the use of Silvadene cream (4) Tinea corporis: Code(s): B35.4 - Tinea corporis Category: Medical Plan: Will supply patient with antifungal powder to use under skin folds (5) Sinus infection: Code(s): J32.9 - Chronic sinusitis, unspecified Category: Medical Qualifiers: Chronicity: subacute Sinusitis location: frontal Qualified Code(s): J01.10 - Acute frontal sinusitis, unspecified Plan: Patient has signs and symptom of her early sinus infection. Will supply patient with antibiotic total down to and if sinus congestion and fever develop he has access to an antibiotic pain Orders: Orders Prostate Specific Antigen Scr 12/18/24 I10 - Essential (primary) hypertension, Z12.5 - Encounter for screening for malignant neoplasm of prostate Testosterone, Free/Total 12/18/24 E66.813 - Obesity, class 3 Lipid Panel 12/18/24 E66.813 - Obesity, class 3 Complete Blood Count no Diff 12/18/24 I10 - Essential (primary) hypertension Comprehensive Sweet. Panel Fast 12/18/24 I10 - Essential (primary) hypertension Medications: New amoxicillin 875 mg PO BID 14 tabs 0RF 7 days J01.10 - Acute frontal sinusitis, unspecified nystatin 1 appl topical DAILY 60 grams 1RF 30 days B35.4 - Tinea corporis Changed From lisinopril 20 mg PO DAILY 30 days 30 tabs 2RF I10 - Essential (primary) hypertension To lisinopril 20 mg PO DAILY 90 tabs 2RF 90 days I10 - Essential (primary) hypertension
--- OUTSIDE RECORDS SUMMARY | 2024-12-18 17:51 | XMS_ITS | Encounter Summary ---
Author
== END 2024-12-18 16:28 | disposition home or self-care (01) ==
LOC: HO.HMCH 15:25
PROVIDERS: PCP Physician Assistant; Visit Provider Physician Assistant
DX: L40.9 Psoriasis, unspecified (principal); I10 Essential (primary) hypertension; I87.2 Venous insufficiency (chronic) (peripheral); B35.4 Tinea corporis; J01.10 Acute frontal sinusitis, unspecified

== ENCOUNTER → 2024-12-18 15:25 | Outpatient (BNVA) | payer OTHER, SELFPAY | PROVIDERS: PCP Physician Assistant; Visit Provider Physician Assistant | DX: I10 Essential (primary) hypertension (principal); G47.33 Obstructive sleep apnea (adult) (pediatric); J45.909 Unspecified asthma, uncomplicated; L40.9 Psoriasis, unspecified; I89.0 Lymphedema, not elsewhere classified; I87.2 Venous insufficiency (chronic) (peripheral); B35.4 Tinea corporis; J01.10 Acute frontal sinusitis, unspecified; E66.813 Obesity, class 3; Z68.43 Body mass index [BMI] 50.0-59.9, adult | CPT/HCPCS: 96127; 99212 ==